=== PATIENT | female | born 1950 | race Caucasian/White ===

== ENCOUNTER 2019-11-07 16:10 | Emergency (ER) | payer MEDICARE, OTHER, SELFPAY ==
--- NOTE | ~2019-11-07 | XR_ITS ---
EXAMINATION: XR abdomen/kub 1V DATE: 11/07/2019 18:02 INDICATION: Left flank pain. TECHNIQUE: A supine view of the abdomen was obtained. COMPARISON: CT abdomen and pelvis 11/07/2019 FINDINGS: There are no dilated loops of bowel. There is contrast in the ureters and bladder. There is moderate left hydronephrosis. There is a 9 mm stone in proximal left ureter. IMPRESSION: 1. 9 mm stone in proximal left ureter with moderate left hydronephrosis. Reviewed, dictated and finalized at location A.
--- NOTE | ~2019-11-07 | CT_ITS ---
EXAMINATION: CT abdomen pelvis w con DATE: 11/07/2019 16:54 INDICATION: Left lower quadrant abdominal pain. TECHNIQUE: Computed tomography (CT) of the abdomen and pelvis was performed with 100 mL Omnipaque 350 intravenous contrast. Automated exposure control and iterative reconstruction technique were employe d. The dose-length product was 215.22 mGy-cm. COMPARISON: None. FINDINGS: The visualized portions of the lung bases demonstrate mild atelectasis. No pleural effusion . There is a large sliding hiatal hernia. The heart size is normal. No pericardial effusion. The live r, gallbladder, pancreas, and adrenal glands are normal. There are cysts in the kidneys measuring up to 9 mm in the right. There is a delayed left-sided contrast nephrogram. There is a 6 mm stone in lef t kidney. There is moderate left hydronephrosis. There is a 9 mm stone in proximal left ureter. There are no dilated loops of bowel. The appendix is normal. There are no pathologically enlarged lymph no neil. There is no free intraperitoneal fluid. There is lumbar levocurvature and severe spondylosis. IMPRESSION: 1. 9 mm stone in proximal left ureter with moderate left hydronephrosis. 2. Nonobstructing left kidney stone. 3. Large sliding hiatal hernia. Reviewed, dictated and finalized at location A.
[2019-11-07 16:22] VITALS: BP 133/87; PULSE 71; RESP 17; TEMP 36.8; O2SAT 99
[2019-11-07 16:25] LABS: Basophils Absolute Auto 0.2 K/mm3 (0.0-0.1); Basophils Percent Auto 1.4 % (0.2-1.2); Eosinophils Absolute Auto 0.2 K/mm3 (0-0.3); Eosinophils Percent Auto 2.1 % (0-4.4); Hematocrit 41.1 % (37.0-47.0); Hemoglobin 13.2 g/dL (12.0-15.0); Immature Granulocyte Absolute 0.04 K/mm3 (0.00-0.031); Immature Granulocyte Percent A 0.4 % (0-0.5); Lymphocytes Absolute Auto 2.01 K/mm3 (0.9-3.2); Lymphocytes Percent Auto 18.1 % (18.3-44.2); Mean Corpuscular HGB Conc 32.1 g/dl (32-36); Mean Corpuscular Hemoglobin 31.1 pg (26-34); Mean Corpuscular Volume 96.9 fl (80-100); Monocytes Absolute Auto 1.4 K/mm3 (0.1-0.6); Monocytes Percent Auto 12.9 % (2.6-8.5); Neutrophils Absolute Auto 7.2 K/mm3 (1.3-6.7); Neutrophils Percent Auto 65.1 % (45.5-73.1); Platelet Count Result 221 k/mm3 (150-375); Red Blood Count 4.24 M/mm3 (4.2-5.4); Red Cell Distribution Width 12.8 % (11.5-14.5); White Blood Count 11.1 K/mm3 (4.5-10.0)
--- NOTE | 2019-11-07 16:36 | ED.GENADULT ---
HPI - General Adult General Chief complaint: Abdominal Pain Stated complaint: LLG abd pain Time Seen by Provider: 11/07/19 16:20 Source: patient History of Present Illness HPI narrative: Patient is a 69 y/o female complaining of intermittent left lower abdominal pain for 4-6 weeks. She describes the pain as sharp and dull and rates it as 6/10. She states that pain radiates to left back sometimes. She states that holding pressure sometimes helps with the pain. She has no fever, vomiting, diarrhea or dysuria. Her pain is worse today, prompting her to go to urgent care, which referred her to come to ED for furthere evaluation. Related Data Home Medications Medication Instructions Recorded Confirmed hydroxychloroquine 200 mg tablet 200 mg PO DAILY 10/29/19 10/29/19 paroxetine HCl 10 mg tablet 10 mg PO DAILY 10/29/19 10/29/19 omeprazole 11/07/19 prednisone 11/07/19 11/07/19 Allergies Allergy/AdvReac Type Severity Reaction Status Date / Time erythromycin base Allergy Unknown Nausea Verified 11/07/19 16:11 sulfamethizole Allergy Unknown upset Verified 11/07/19 16:11 stomach adalimumab AdvReac Unknown HIVES Verified 11/07/19 16:11 Review of Systems Constitutional: Constitutional: Denies chills, Denies fever(s), Denies headache(s) and Denies weakness Eyes: Eyes: Denies blurry vision ENT: Denies headache(s) and Denies neck pain Cardiovascular: Cardiovascular: Denies chest pain and Denies dyspnea Respiratory: Respiratory: Denies cough and Denies dyspnea Gastrointestinal: Gastrointestinal: Reports abdominal pain, Denies diarrhea, Denies nausea and Denies vomiting Genitourinary: Genitourinary: Denies hematuria and Denies dysuria Musculoskeletal: Musculoskeletal: Denies back pain and Denies neck pain Neurologic: Denies headache(s) and Denies weakness [facility] Family History Family History Father Hypertension Family history of coronary artery disease, Onset Age: 82 Family history of malignant neoplasm of breast in first degree relative Patient's father is Social History Social History Smoking status: Former smoker Second hand tobacco smoke exposure: No Smoking end date: 02/18/08 Alcohol intake: current Gender identity (if verbalized by the patient): Female Exam Const: General: no acute distress and well developed Orientation/consciousness: oriented to person, oriented to place, oriented to time and patient oriented x3 HENMT: Head: normocephalic Ears: external ears normal General nose exam: Normal external nose present Eyes: General: appearance normal, both eyes and all related structures Conjunctivae: conjunctivae normal Neck: Neck: normal visual inspection and full ROM Chest: Chest palpation & inspection: normal inspection of the chest and no tenderness Resp: Effort & Inspection: normal respiratory effort Auscultation: clear to auscultation bilaterally Cardio: Rate: regular rate Rhythm: regular rhythm GI: GI Palp: No abdominal tenderness and Yes Soft to palpation Skin: General skin exam: normal color and turgor normal Neuro: General: oriented to person, oriented to place, oriented to time and patient oriented x3 Cognition (Neuro): normal cognition Extrem: General: normal to inspection, full ROM and no pedal edema Psych: Appearance: grossly normal Mental Status: mental status grossly normal Affect: normal affect Course Reevaluation(s) Reevaluation #1: Rechecked patient. She states that she feels better and wants to go home. She rates her pain as 2/10. Date: 11/07/19 Time: 17:30 Consultations Consultation #1: Discussed with Dr. Erickson (urology), who agrees with plan for discharge. He recommends Percocet for pain and they will follow. Date: 11/07/19 Time: 17:41 Vital Signs Vital signs: Vital Signs Temperature 36.8 C 11/07/19 16:22 Pulse Rate 71
[2019-11-07 16:37] LABS: Alanine Aminotransferase 18 U/L (4-35); Albumin Level 4.1 g/dL (3.5-5.1); Alkaline Phosphatase 72 U/L (38-126); Anion Gap 5 mmol/L (8-16); Aspartate Amino Transferase 36 U/L (14-36); Bilirubin,Total 0.4 mg/dL (0.2-1.3); Blood Urea Nitrogen 20 mg/dL (7-17); Calcium 9.2 mg/dL (8.4-10.2); Carbon Dioxide 29 mmol/L (22-30); Chloride 107 mmol/L (98-107); Estimated CRCL calculation 43 ml/min; Estimated Glomerular Filt Rate > 60; Glucose 109 mg/dL (65-105); Lipase 133 U/L (23-300); Potassium 3.3 mmol/L (3.4-5.0); Sodium 141 mmol/L (137-145)
[2019-11-07] MEDS: KETOROLAC 15 MG/ML VIAL (*BKC) IV PUSH (16:40)
[2019-11-07] MEDS: POTASSIUM CHLORIDE 20 MEQ TABLET PO (17:09)
[2019-11-07 17:14] VITALS: BP 153/75; PULSE 74; RESP 20; O2SAT 97
[2019-11-07 17:41] LABS: Add Urine Microscopic? YES; Appearance Urine Clear (Clear); Bilirubin Urine Negative (Negative); Blood Urine 3+ (Negative); Color Urine Yellow (Yellow); Glucose Urine UA Negative (Negative); Ketones Urine Negative (Negative); Leukocyte Esterase Ur 2+ LEU/UL (Negative); Mucus Urine Rare /lpf; Nitrate Urine Negative (Negative); Protein Urine Negative (Negative); RBC Urine 51-75 /hpf (0-2); Squamous Epithelial Cell Urine Rare /hpf (Few); Urobilinogen Urine Negative mg/dL (<2.0); WBC Urine 31-50 /hpf
[2019-11-07 17:43] LABS: Specific Grav Ur 1.043 (1.001-1.035)
[2019-11-07 17:46] VITALS: BP 128/66; PULSE 71; RESP 20; O2SAT 94
[2019-11-07 18:05] VITALS: BP 118/89; PULSE 72; RESP 20; O2SAT 95
== END 2019-11-07 18:05 | disposition home or self-care (01) ==
PROVIDERS: Emergency Provider Emergency Medicine; PCP Family Medicine
DX: N13.2 Hydronephrosis with renal and ureteral calculous obstruction (principal); N39.0 Urinary tract infection, site not specified; Z87.891 Personal history of nicotine dependence; K44.9 Diaphragmatic hernia without obstruction or gangrene
CPT/HCPCS: 36415; 74018; 74177; 80053; 81001; 83690; 85025; 87086; 96374; 99284; A9270; J1885; Q9967

== ENCOUNTER 2020-01-17 10:57 | Emergency (ER) | payer MEDICARE, OTHER, SELFPAY ==
--- NOTE | ~2020-01-17 | XR_ITS ---
EXAMINATION: [id number] DATE: 01/17/2020 11:26 INDICATION: Right chest pain. Fall. TECHNIQUE: A frontal view of the chest and 3 views of the right ribs were obtained. COMPARISON: CT abdomen and pelvis 11/07/2019 FINDINGS: There is a large hiatal hernia. There is mild atelectasis in the lower lung zones. No pleur al effusion or pneumothorax. The heart size is normal. IMPRESSION: 1. No rib fracture. 2. Large hiatal hernia. Reviewed, dictated and finalized at location A. NICS SYSTEMS ENGINEER
[2020-01-17 11:15] VITALS: BP 106/54; PULSE 71; RESP 18; TEMP 36.6; O2SAT 98
[2020-01-17 11:23] VITALS: BP 106/54; PULSE 71; RESP 18; TEMP 36.6; O2SAT 98
--- NOTE | 2020-01-17 11:56 | ED.FALL ---
HPI - Fall General Chief Complaint: Fall Stated Complaint: fell right side rib pain Time Seen by Provider: 01/17/20 11:26 Source: patient and RN notes reviewed Mode of arrival: ambulatory Limitations: no limitations History of Present Illness HPI Narrative: Patient presents today complaining of pain to her right anterior ribs. 6 days ago she fell onto some landscaping gravel at home when she tried to walk up a bit of an incline while carrying a puppy. She slipped on the gravel and fell. She has been experiencing pain ever since. Denies shortness of breath. Pain increases with deep breath and coughing. Currently rates pain 07/27. She has tried no [id number] interventions prior to arrival. Denies shortness of breath. MD complaint: fall and other (Right rib pain) Related Data Home Medications Medication Instructions Recorded Confirmed hydroxychloroquine 200 mg tablet 200 mg PO DAILY 10/29/19 01/17/20 paroxetine HCl 10 mg tablet 10 mg PO DAILY 10/29/19 01/17/20 omeprazole 20 mg PO DAILY 11/07/19 01/17/20 prednisone 2.5 mg PO DAILY 11/07/19 01/17/20 Allergies Allergy/AdvReac Type Severity Reaction Status Date / Time erythromycin base Allergy Intermediate Nausea Verified 01/17/20 11:21 sulfamethizole Allergy Intermediate upset Verified 01/17/20 11:21 stomach adalimumab AdvReac Intermediate HIVES Verified 01/17/20 11:21 Review of Systems Review of Systems: Narrative: CONSTITUTIONAL: Denies body aches, fever, chills, or sweats. EYES: Denies visual changes, redness, or discharge. ENT: Denies rhinorrhea, congestion, sore throat, or otalgia. CARDIOVASCULAR: Denies chest pain, palpitations, or edema. RESPIRATORY: Denies cough or dyspnea. GASTROINTESTINAL: Denies abdominal pain, nausea, vomiting, or diarrhea. GENITOURINARY: Denies dysuria or hematuria. SKIN: Denies rash, itching, or wounds. MUSCULOSKELETAL: Denies back pain, joint pain, or myalgia.+ Right rib pain NEUROLOGIC: Denies headache, numbness, tingling, or weakness. PSYCH: Denies depression or anxiety. [facility] Past Medical History Medical History (Updated 01/17/20 @ 12:10 by Tatyana Cabrera, RADIO MECHANIC APPRENTICE, ) GERD (gastroesophageal reflux disease) Rheumatoid arthritis Surgical History Surgical History (Updated 01/17/20 @ 12:10 by Tatyana Cabrera, [facility], ) H/O: hysterectomy Family History Family History Father Hypertension Family history of coronary artery disease, Onset Age: 82 Family history of malignant neoplasm of breast in first degree relative Patient's father is Social History Social History Smoking status: Former smoker Second hand tobacco smoke exposure: No Smoking end date: 02/18/08 Alcohol intake: current Gender identity (if verbalized by the patient): Female Comments At time of signature, I have reviewed and agree with nursing past medical, surgical, social and family history unless otherwise noted. Please see nursing chart for further information. There is no relevant family history pertinent to the presenting complaint Exam Narrative: Exam Narrative: GENERAL: Well-appearing, well-nourished, and in no acute distress. HEAD: Normocephalic, atraumatic. EYES: EOMI. No redness or drainage. Conjunctivae normal. ENT: Mucous membranes pink and moist. NECK: Normal AROM. CHEST: No respiratory distress. Clear to auscultation. Tenderness to the right anterior ribs, under the right breast. No edema, ecchymosis, or crepitus noted. HEART: Regular rate and rhythm. No murmur appreciated. Normal peripheral pulses. EXTREMITIES: Normal range of motion. No edema. SKIN: Warm, dry, no rash. Capillary refill normal. Normal skin turgor. NEURO: No focal deficits. Alert and oriented x3. Gait steady. PSYCH: Normal affect. No signs of depression or anxiety. Course Vital Signs Vital signs: Vital Signs Tempera
== END 2020-01-17 12:01 | disposition home or self-care (01) ==
PROVIDERS: Emergency Provider Nurse Practitioner; PCP Family Medicine
DX: S20.211A Contusion of right front wall of thorax, initial encounter (principal); W01.0XXA Fall on same level from slipping, tripping and stumbling without subsequent striking against object, initial encounter; Z87.891 Personal history of nicotine dependence; K21.9 Gastro-esophageal reflux disease without esophagitis; M06.9 Rheumatoid arthritis, unspecified
CPT/HCPCS: 71101; 99213; G0463

== ENCOUNTER 2020-03-20 10:58 | Outpatient (CLI) | payer MEDICARE, OTHER, SELFPAY ==
--- NOTE | ~2020-03-20 | MM_ITS ---
EXAMINATION: MM screening fatimah BI w gabrielle HISTORY: Screening mammogram, family history of breast cancer in her mother. TECHNIQUE: Craniocaudal and mediolateral oblique 3-D tomosynthesis images were obtained and synthetic 2-D images were generated. CAD analysis was submitted and interpreted. COMPARISON: 01/29/2019, 10/21/2017, 08/26/2016 BREAST PARENCHYMAL COMPOSITION: The breasts are heterogeneously dense, which may obscure small masses . FINDINGS: There is no evidence of suspicious mass, calcification, or architectural distortion to sugg est malignancy in either breast. There has been no suspicious interval change. IMPRESSION: 1. No mammographic evidence of malignancy. 2. Recommend routine screening mammography in one year. BI-RADS Category 1: Negative Reviewed, dictated and finalized at location A. GER SQL
== END 2020-03-20 10:59 | disposition home or self-care (01) ==
LOC: ANHIMG 11:02
PROVIDERS: PCP Family Medicine; Visit Provider Obstetrics & Gynecology
DX: Z12.31 Encounter for screening mammogram for malignant neoplasm of breast (principal)
CPT/HCPCS: 77063; 77067

== ENCOUNTER → 2020-10-21 01:22 | Outpatient (CLI) | payer MEDICARE, OTHER, SELFPAY ==
[2020-10-21 21:01] LABS: SARS-CoV-2 RNA PCR Negative
== END ==
PROVIDERS: PCP Family Medicine; Visit Provider Physician Assistant
DX: R05 Cough (principal); Z20.828 Contact with and (suspected) exposure to other viral communicable diseases
CPT/HCPCS: C9803; U0003; U0005

== ENCOUNTER 2021-06-25 10:11 | Outpatient (CLI) | payer MEDICARE, OTHER, SELFPAY ==
--- NOTE | ~2021-06-25 | MM_ITS ---
EXAMINATION: MM screening fatimah BI w gabrielle HISTORY: Screening TECHNIQUE: Craniocaudal and mediolateral oblique 3-D tomosynthesis images were obtained and synthetic 2-D images were generated. CAD analysis was submitted and interpreted. COMPARISON: Comparison to multiple prior studies sequentially, with oldest reviewed study dated 01/17. BREAST PARENCHYMAL COMPOSITION: The breasts are heterogenously dense, which may obscure small masses FINDINGS: There is no evidence of suspicious mass, calcification, or architectural distortion to sugg est malignancy in either breast. There has been no suspicious interval change. IMPRESSION: 1. No mammographic evidence of malignancy. 2. Recommend routine screening mammography in one year. BI-RADS Category 1: Negative Reviewed, dictated and finalized at location A.
== END 2021-06-25 10:12 | disposition home or self-care (01) ==
LOC: ANHIMG 10:14
PROVIDERS: PCP Family Medicine; Visit Provider Obstetrics & Gynecology
DX: Z12.31 Encounter for screening mammogram for malignant neoplasm of breast (principal)
CPT/HCPCS: 77063; 77067

== ENCOUNTER 2021-12-11 15:22 | Outpatient (CLI) | payer MEDICARE, OTHER, SELFPAY ==
--- NOTE | ~2021-12-11 | DEXA_ITS ---
Bone Density Report Name: ORTEGA ESTRADA Age: 71 Sex: Female Ethnicity: White Date of : 1950 Indication: osteopenia; height loss; rheumatoid arthritis; postmenopausal Referring Provider: PAWAN CHRISTENSEN Study: Bone densitometry was performed. Exam Date: December 11, 2021 Accession number: [id number] Bone Density: Region BMD T-score Z-score Classification AP Spine(L1-L4) 0.848 -1.8 0.3 Osteopenia Femoral Neck (Left) 0.550 -2.7 -0.9 Osteoporosis Total Hip (Left) 0.655 -2.4 -0.9 Osteopenia Femoral Neck (Right) 0.571 -2.5 -0.7 Osteoporosis Total Hip (Right) 0.683 -2.1 -0.6 Osteopenia Total Hip Mean 0.669 -2.3 -0.8 Osteopenia World Health Organization criteria for BMD impression classify patients as: Normal (T-score at or above -1.0), Osteopenia (T-score between -1.0 and -2.5), or Osteoporosis (T-score at or below -2.5). 10-year Fracture Risk: FRAX not reported because: Some T-score for Spine Total or Hip Total or Femoral Neck at or below -2.5 Previous Exams: Region Exam Age BMD T-score BMD Change BMD Change Date g/cm2 vs Baseline vs Previous AP Spine (L1-L4) 12/11/2021 71 0.848 -1.8 -0.048 (-5.4%) -0.048 (-5.4%) 04/28/2014 64 0.896 -1.4 Total Hip(Left) 12/11/2021 71 0.655 -2.4 -0.096 (-12.8% -0.044 (-6.3%) 11/26/2017 67 0.699 -2.0 -0.052 (-7.0%) -0.052 (-7.0%) 04/28/2014 64 0.751 -1.6 Total Hip(Right) 12/11/2021 71 0.683 -2.1 -0.081 (-10.6% -0.016 (-2.3%) 11/26/2017 67 0.699 -2.0 -0.065 (-8.5%) -0.065 (-8.5%) 04/28/2014 64 0.764 -1.5 *Denotes significance at 95% confidence level, LSC for AP Spine = 0.022 g/cm2, LSC for Total Hip = 0.027 g/cm2 Clinical Information Provided by Patient: Has rheumatoid arthritis Has used the following medications: Reclast (i.e. zoledronate), Vitamin D, Calcium Patient maximum height was 60.5 Menopause Age: 51 Drinks caffeinated beverages Onset of menses at age 14 Number of children 2 Impression: The patient has osteoporosis, based on the Left Femoral Neck T-score. The BMD for the AP Spine (L1-L4) decreased, changing by -5.4% since the last DXA exam. The BMD for the Total Hip(Left) decreased, changing by -6.3% since the last DXA exam. Discussion: INCREASED RISK OF FRACTURE. BONE DENSITY IS UNDESIRABLY LOW AT ONE OR MORE SKELETAL SITES, CONSISTENT WITH POSTMENOPAUSAL OSTEOPOROSIS. This patient's lowest T-score meets the World Health Organization's (WHO) criter
== END 2021-12-11 15:23 | disposition home or self-care (01) ==
PROVIDERS: PCP Family Medicine; Visit Provider Physician Assistant
DX: Z78.0 Asymptomatic menopausal state (principal); M81.8 Other osteoporosis without current pathological fracture; M85.88 Other specified disorders of bone density and structure, other site; M85.852 Other specified disorders of bone density and structure, left thigh; M85.851 Other specified disorders of bone density and structure, right thigh
CPT/HCPCS: 77080

== ENCOUNTER 2022-10-02 13:34 | Emergency (ER) | payer MEDICARE, OTHER, SELFPAY ==
--- NOTE | ~2022-10-02 | XR_ITS ---
EXAMINATION: [id number] INDICATION: Right rib pain TECHNIQUE: A frontal view of the chest and 3 views of the right ribs were obtained. COMPARISON: 01/17/2020 FINDINGS: The lungs are free of acute opacities. No pleural effusion or pneumothorax. The heart size is normal. There are changes of hiatal hernia repair. No displaced rib fracture is identified. IMPRESSION: 1. No acute cardiopulmonary abnormality or evidence of displaced rib fracture. Reviewed, dictated and finalized at location B.
[2022-10-02 13:44] VITALS: BP 117/55; PULSE 78; RESP 16; TEMP 36.9; O2SAT 98
--- NOTE | 2022-10-02 14:01 | ED.GENADULT ---
HPI - General Adult General Chief complaint: Unspecified Stated complaint: Flank Pain Time Seen by Provider: 10/02/22 14:01 Source: patient Mode of arrival: ambulatory Limitations: no limitations History of Present Illness HPI narrative: 72-year-old female presenting for complaint of right rib pain for 2 days. She states her attempted to give her hug with his arms around her ribs, and when he tried to lift her she felt pain to the site. She has had intermittent pain since then. Rates pain 5/10, worse with certain movements. She denies shortness of breath, wheezing, palpitations or dizziness. She has not needed to take anything for pain. Related Data Home Medications Medication Instructions Recorded Confirmed hydroxychloroquine 200 mg tablet 200 mg PO DAILY 10/29/19 10/02/22 (Plaquenil) Allergies Allergy/AdvReac Type Severity Reaction Status Date / Time erythromycin base Allergy Intermediate Nausea Verified 10/02/22 13:49 sulfamethizole Allergy Intermediate upset Verified 10/02/22 13:49 stomach adalimumab AdvReac Intermediate HIVES Verified 10/02/22 13:49 Review of Systems Review of Systems: CONSTITUTIONAL: Denies body aches, fever, chills, or sweats. EYES: Denies visual changes, redness, or discharge. ENT: Denies rhinorrhea, congestion, sore throat, or otalgia. CARDIOVASCULAR: Denies chest pain, palpitations, or edema. RESPIRATORY: Denies cough or dyspnea. GASTROINTESTINAL: Denies abdominal pain, nausea, vomiting, or diarrhea. GENITOURINARY: Denies dysuria or hematuria. SKIN: Denies rash, itching, or wounds. MUSCULOSKELETAL: Reports right rib pain. Denies back pain, joint pain, or myalgia. NEUROLOGIC: Denies headache, numbness, tingling, or weakness. PSYCH: Denies depression or anxiety. All systems reviewed & are unremarkable except as noted in HPI and below PMFSH Past Medical History Medical History GERD (gastroesophageal reflux disease) Rheumatoid arthritis Surgical History Surgical History H/O: hysterectomy History of repair of hiatal hernia (~03/08/21) Family History Family History Father Hypertension Family history of coronary artery disease, Onset Age: 82 Family history of malignant neoplasm of breast in first degree relative Patient's father is Social History Social History Smoking status: Former smoker Second hand tobacco smoke exposure: No Smoking end date: 02/18/08 Alcohol intake: current Substance use: never Substance use type: does not use Lack of Transportation: No Lack of Food: Never True Current Housing: I Have Housing Concerned About Future Housing: No Difficulty Paying Gas/Electric Bills: No Difficulty Paying for Meds: No Currently Unemployed: No Education: High School Diploma/GED Difficulty w/ Childcare or Family Care: No Gender identity (if verbalized by the patient): Female Comments At time of signature, I have reviewed and agree with nursing past medical, surgical, social and family history unless otherwise noted. Please see nursing chart for further information. There is no relevant family history pertinent to the presenting complaint Exam Narrative: GENERAL: Well-appearing, and in no acute distress. HEAD: Normocephalic, atraumatic. EYES: EOMI. Conjunctivae normal. ENT: Mucous membranes pink and moist. NECK: Normal AROM. Supple. No lymphadenopathy. CHEST: No respiratory distress. Clear to auscultation. HEART: Regular rate and rhythm. No murmur appreciated. Normal peripheral pulses. ABDOMEN: Soft, nontender, nondistended, normal active bowel sounds. MUSCULOSKELETAL: Right anterior rib tenderness to 5th rib area, no bruising or rash EXTREMITIES: Normal range of motio
== END 2022-10-02 14:20 | disposition home or self-care (01) ==
PROVIDERS: Emergency Provider Nurse Practitioner Family; PCP Family Medicine
DX: S20.211A Contusion of right front wall of thorax, initial encounter (principal); X58.XXXA Exposure to other specified factors, initial encounter; K21.9 Gastro-esophageal reflux disease without esophagitis; M06.9 Rheumatoid arthritis, unspecified; Z87.891 Personal history of nicotine dependence
CPT/HCPCS: 71101; 99213; G0463

== ENCOUNTER 2023-01-30 10:11 | Outpatient (CLI) | payer MEDICARE, OTHER, SELFPAY ==
--- NOTE | ~2023-01-30 | MM_ITS ---
EXAMINATION: MM screening fatimah BI w gabrielle HISTORY: Screening TECHNIQUE: Craniocaudal and mediolateral oblique 3-D tomosynthesis images were obtained and synthetic 2-D images were generated. CAD analysis was submitted and interpreted. COMPARISON: Comparison to multiple prior studies sequentially, with oldest reviewed study dated 01/17. BREAST PARENCHYMAL COMPOSITION: The breasts are heterogeneously dense, which may obscure small masses FINDINGS: There is no evidence of suspicious mass, calcification, or architectural distortion to sugg est malignancy in either breast. There has been no suspicious interval change. IMPRESSION: 1. No mammographic evidence of malignancy. 2. Recommend routine screening mammography in one year. BI-RADS Category 1: Negative Reviewed, dictated and finalized at location A. 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
== END 2023-01-30 10:12 | disposition home or self-care (01) ==
PROVIDERS: PCP Family Medicine; Visit Provider Obstetrics & Gynecology
DX: Z12.31 Encounter for screening mammogram for malignant neoplasm of breast (principal)
CPT/HCPCS: 77063; 77067

== ENCOUNTER 2024-10-12 14:57 | Outpatient (CLI) | payer MEDICARE, OTHER, SELFPAY ==
--- OUTSIDE RECORDS SUMMARY | 2009-04-14 08:15 | XMS_ITS | Continuity of Care Document ---
Author Organization [facility] Address [address] [place] [address] utive [facility] 150 [place] [address] Phone Care Team Providers Care Printer Floor Covering Assistant Name Role Phone Sean Chapa Unavailable Unavailable Procedures Procedure Date Visual Field Examination(s) Office/outpatient Visit, Est Visual Field Examination(s) Office/outpatient Visit, Est Office/outpatient Visit, Est Visual Field Examination(s) Eye Exam, New Patient Advance Directives Directive Yes / No Effective Date File Name No Information Encounters Encounter Description Practice Location Reason(s) For Visit Diagnoses Date Provider Providers Copied on Encounter [facility], [address] [place], [place] [address]te [address], [place], [place], [address], tel:[phone] [facility] No Information 6-201 0 Eduard Estrada. [facility] [address], [address], [place]. tel:[phone] Referring Provider: Sean oleary [facility] [address] [address], [place], [address]. tel:[phone] Office/outpat ient Visit, Est [facility], [address] [place], [place] [address]te [address], [place], [place], [address], tel:[phone] [facility] No Information 8-200 9 Eduard Juanhil. [facility] [address], [facility], [place]. tel:[phone] [facility], [address], [place], [place], [address], [place] tel:[phone] [facility] No Information 3-200 9 Eduard Sellersl. 2421 [facility] 102, [place], [facility], [place]. tel:[phone] Referring Provider: Sean oleary, 2421 [facility] 102, [place], [facility]. tel:[phone] Office/outpat ient Visit, [facility], [address], [place], [place], [address], [place] tel:[phone] [facility] No Information 9-200 8 Krishnasamy Esan. [facility], [place], [place], [facility], [place]. tel:[phone] Office/outpat ient Visit, [facility], [address], [place], [place], [address], [place] tel:[phone] [facility] No Information 8-200 8 Kingsley Goldberg. [address] [facility] [place], [address], [place]. tel:[phone] [facility], [address], [place], [place], [address], [place] tel:[phone] [facility] No Information 1-200 7 Kingsley Goldberg. [address] [facility], [facility] [place], [address], [place]. tel:[phone] Referring Provider: Yusuf Nieves, [address] [facility], [place] [place], [address] . tel:[phone] [facility], [address], [place], [place], [address], [place] tel:[phone] [facility] No Information 7 Kingsley Goldberg. [address] [facility], [address], [place], [place], [address], [place]. tel:[phone] Referring Provider: David Head, [address] [place] [address], [address]. tel:[phone] Family History Family Member Type Diagnosis Age [...]
--- OUTSIDE RECORDS SUMMARY | 2024-10-11 08:20 | XMS_ITS | Encounter Summary ---
Author Organization [facility] Address [address] [place] [address] Phone Care Team Providers Care Television And Radio Repairer Name Role Phone Yumiko Shaffer MD Unavailable [phone] Noris Limon NP Primary Care Provider [phone] Reason for Referral * Diagnostic Imaging (Routine) - Closed Specialty Diagnoses / Procedures Referred By Contac t Referred To Contact Diagnoses Seropositive rheumatoid arthritis of multiple sites (HCC) Procedures XR Foot Left 3 or More Views Yumiko Shaffer MD [address] [place] [address] Phone: tel: fax: [address] [phone] Referral ID Status Reason Start Date Expiration Date Visits Re quested Visits Authorized [id number] Closed 10/11/2024 11/10/2025 1 1 * Diagnostic Imaging (Routine) - Closed Specialty Diagnoses / Procedures Referred By Contac t Referred To Contact Diagnoses Seropositive rheumatoid arthritis of multiple sites (HCC) Procedures XR Hand Left 3 or More Views Yumiko Shaffer MD [address] [place] [address] Phone: tel: fax: [address] [place] [phone] Referral ID Status Reason Start Date Expiration Date Visits Re quested Visits Authorized [id number] Closed 10/11/2024 11/10/2025 1 1 * Diagnostic Imaging (Routine) - Closed Specialty Diagnoses / Procedures Referred By Contac t Referred To Contact Diagnoses Seropositive rheumatoid arthritis of multiple sites (HCC) Procedures XR Hand Right 3 or More Views Yumiko Shaffer MD [address] [place] [address] Phone: tel: fax: [address] [phone] Referral ID Status Reason Start Date Expiration Date Visits Re quested Visits Authorized [id number] Closed 10/11/2024 11/10/2025 1 1 Encounter Details Date Type Department Care Team (Latest Contact Info) Description 10/11/2024 8:20 AM CDT Office Visit [facility] 5th [place] [address] [place] [id number] Yumiko Shaffer MD [address] [place] [address] Seropositive rheumatoid arthritis of multiple sites (HCC) (Primary Dx); Primary osteoarthritis involving multiple joints; High risk medication use; Other osteoporosis without current pathological fracture Social History Tobacco Use Types Packs/Day Years Used Date Smoking Tobacco: Former Cigarettes Q uit: 11/23/2012 Smokeless Tobacco: Never Tobacco Cessation:Counseling Given: Not Answered Comments:Smoking History Packs/day: 0.75 Packs Alcohol Use Standard Drinks/Week Comments Yes 0 (1 standard drink = 0.6 oz pur e alcohol) rarely AUDIT-C Answer Date Recorded Q1: How often do you have a drink containing alc ohol? 2-4 times a month 11/19/2021 Q2: How many drinks containi ng alcohol do you have on a typical day when you are drinking? 1 or 2 11/19/2021 Q3: How often do you have si x or more drinks on one occasion? Never 11/19/2021 PHQ-2 Answer Date Recorded PHQ-2 Score 0 10/09/2018 Hunger Vital Sign Answer Date Recorded Within the past 12 months, y ou worried that your food would run out before you got the money to buy more. Never true 06/08/19 25 Within the past 12 months, t he food you bought just didn't last and you didn't have money to get more. Never true 06/07/2024 Personal Safety Answer Date Recorded Have you ever been in or are you currently in a harmful physical or emotional relationship or is someone making you feel afraid or unsafe? 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[employer] Gender Identity Not on file Sexual Orientation Not on file documented as of this encounter Last Filed Vital Signs Vital Sign Reading Time Taken Comments Blood Pressure 145/81 10/11/2024 8:25 AM CDT Pulse 78 10/11/2024 8:25 AM CDT Temperature 36.6 C (97.8 F) 10/11/2024 8:25 AM CDT Respiratory Rate - - Oxygen Saturation - - Inhaled Oxygen Concentration - - Weight 51.7 kg (114 lb) 10/11/2024 8:25 AM CDT Height 152.4 cm (5') 10/11/2024 8:25 AM CDT Body Mass Index 22.26 10/11/2024 8:25 AM CDT documented in this encounter Patient Instructions * Patient Instructions* Yumiko Shaffer MD - 10/11/2024 8:20 AM CDT 1) Xrays on the 6th floor 2) TB test on the 3rd floor 3) We'll start enbrel or actemra (tocilizumab) - info below Patient Information on TNF Inhibitors from the [employer] TNF inhibitors are a type of drug used worldwide to treat inflammatory conditions such as rheumatoid arthritis (RA), psoriatic arthritis, juvenile arthritis, inflammatory bowel disease (Crohn???s andulcerative colitis), ankylosing spondylitis, and psoriasis. They reduce inflammation and stop disease progression by targeting an inflammation-causing substance called Tumor Necrosis Factor (TNF). In healthy individuals, excess TNF in the blood is blocked naturally, but in those who have rheumatic conditions, higher levels of TNF in the blood lead to more inflammation and persistent symptoms. They can alter a disease???s effect on the body by controlling inflammation in the joints, gastrointestinal tract, and skin. There are six different TNF inhibitors that have been approved by the U.S. Food and Drug Administration for the treatment of rheumatic diseases. To decrease side effects and costs, most patients withmild or moderate disease may be treated with methotrexate before adding or switching to a TNF inhibitor. These agents can be used by themselves or in combination with other medications such as prednisone, methotrexate, hydroxychloroquine, leflunomide, or sulfasalazine. How To Take It The starting doses for RA are shown in Table 1. Similar doses are used for other rheumatic conditions. TNF inhibitors may be given by injection under the skin or by infusion into the vein. There are pamphlets and videos that can teach you how to give yourself an injection under the skin. Physicians, nurses, and pharmacists can also teach you how to give the injection. The medicine can be injected into the thigh or abdomen. The site of injection should be rotated so the same site is not used multiple times. Infliximab and golimumab infusions are administered at a doctor???s office or an infusion center. These treatments take up to four hours. The time that it takes for the medication to have an effect may vary by patient. Most patients havereported a change in their symptoms after two or three doses, but it usually takes three months to see the full benefit. Side Effects The most common side effect seen with the injectable drugs are skin reactions, commonly referred toas ???injection site reactions.?? The patients usually complain of a localized rash with burning or itching. These reactions can last up to a week. Infliximab has been associated with a severe allergic reaction with swelling of the lips, difficulty breathing and low blood pressure. Your doctor will usually order a pre-medication to decrease the chances of an infusion reaction. The most significant side effect is an increased risk for all types of infections, including tuberculosis (TB) and fungal infections. Some of these infections may be severe. Patients should be testedfor TB before starting therapy, because a hepatitis B infection can worsen during treatment. The usual way of testing is with a skin test, but a blood test is also available. Long-term use of TNF inhibitors may increase the risk of cancers such as lymphoma and skin cancer. There are rare neurologic complications as well.. People who have a history of multiple sclerosis should not use them. People with significant heart failure should not use a TNF inhibitor, because their heart disease could worsen. Tell Your Doctor TNF inhibitors should be stopped if the patient has high fever or is being treated with antibioticsfor an infection. Once the medication is stopped, it should not be restarted until the infection goes away. Patients should talk to their doctor before getting any vaccinations while using an anti-TNF drug. Some vaccinations are safe, but live vaccines should be avoided. These medications are expensive (more than $10,000 per year), but they are covered by most health care insurance plans. Copay amounts vary widely. Ask your doctor about prescription assistance plans that can help you to get the medication at a lower ruff or free of charge. Refer to the package insert for more information. If you are prescribed Humira, please register for their Nurse Ambassador Program. This program provides 09/09 injection support and is available to answer questions about Humira. [email or web address] Patient Information on Tocilizumab from the [employer] Tocilizumab (Actemra ??) is a biologic medication currently approved to treat adults with moderately to severely active rheumatoid arthritis (RA), adults with giant cell arteritis (GCA), and people ages two and above with Polyarticular Juvenile Idiopathic Arthritis (PJIA) or Systemic Juvenile Idiopathic Arthritis (SJIA). Biologic medications are proteins designed by humans that affect the immune system. Tocilizumab blocks the inflammatory protein IL-6. This improves joint pain and swelling fromarthritis and other symptoms caused by inflammation. How to Take It For adults with RA or GCA, tocilizumab can be given as either a monthly intravenous infusion or as a subcutaneous injection every one - two weeks. For people with PJIA or SJIA, tocilizumab is given as a monthly intravenous infusion. When used as a subcutaneous injection, the medicine can be injected into the thigh or abdomen. The site of injection should be rotated so the same site is not used multiple times. Some patients will start to see improvement within a few weeks, but it may take several months to take full effect. Tocilizumab may be taken alone or with methotrexate or other non-biologic drugs. Tocilizumab should not be given in combination with another biologic drug. Blood tests will be used to monitor for increases in cholesterol or liver enzymes and for reductions in blood cellcounts while taking tocilizumab. Side Effects Tocilizumab can lower the ability of your immune system to fight infections. If you develop symptoms of an infection while using this medication, you should stop it and contact your doctor. All patients should be tested for tuberculosis before starting on tocilizumab, although these types of infections have not been frequently seen. Allergic reactions to intravenous tocilizumab infusions can occur, which can include symptoms such as fever and chills, but these are rare. Tocilizumab has been associated with increased cholesterol levels in some patients, and should be periodically monitored. Ifyour cholesterol level becomes too high, it is possible you may need to start taking a medication to lower it. A rare complication seen with tocilizumab use in clinical trials was bowel perforation, or a hole in the bowel wall. If you have a history or diverticulitis or develop abdominal pain or bloody bowel movements while taking tocilizumab, you should notify your doctor immediately. Tell Your Doctor You should notify your doctor if you develop symptoms of an infection, such as a fever or cough, orif you think you are having any side effects, especially abdominal pain, bloody bowel movements, orallergic reactions. Notify your doctor if you become , are planning , or if you are . Be sure to talk with your doctor if you are planning to have surgery or if you plan to get any live vaccinations; these include the shingles vaccine, the nasal spray flu vaccine, and others such as the measles, mumps, rubella, and yellow fever vaccines. [email or web address]-Act emra documented in this encounter Ordered Prescriptions Prescription Sig Dispense Quantity Refills Last Filled Start Date End Date etanercept (ENBREL) 50 mg/mL (1 mL) pen injectorIndications :Seropositive rheumatoid arthritis of multiple sites (HCC) Inject 1 mL (50 mg total) under the skin once a week 12 mL 1 10/11/2024 documented in this encounter Progress Notes * Yumiko Shaffer MD - 10/11/2024 8:20 AM CDT [facility] Division of Rheumatology SUBJECTIVE: Chief Complaint This is different Brief History of Present Illness: 74 y.o. female with PMHx significant for erosive, seropositive (RF, CCP) RAA, hiatal hernia c/b torsion requiring bowel resection, s/p hysterectomy, kidney stones is evaluated in the Rheumatology Clinic for rheumatoid arthritis. Disease History Diagnosed around age 52yo when developed feet pain after a hepatitis vaccine. Initially treated with injections in the feet, but then progressed to neck pain and then b/l hands, knees, shoulders pain. PCP treated with NSAIDs. Self referred to Dr. Guerrero. Treated initially with prednisone and HCQ. Did well with that initially. Switched to Dr. Garcia at [facility]. Retired during . 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 Hagan recently left the practice. Treatment History Prednisone MTX - caused elevated LFTs HCQ Humira - caused hives Orencia (? - current) Remicade ( - 2017) - transitioned to orencia because of medicare Orencia (subq in 2017, then IV 2017 - 05/2024) Rinvoq (05/2024 - 09/2024) - d/c'ed for fevers Osteoporosis: Alendronate - c/f osteonecrosis of the jaw -- and GI symptoms Reclast 05/2020, 08/2021, 12/2022, 05/2024 Interval History Pt last evaluated in clinic 4 months ago. RA active. We stopped orencia, started rinvoq, and continued HCQ. Started rinvoq maybe 6 weeks ago. 3-4 weeks ago, was at [facility] [employer] and got a sore throat while she was there. PCP had prescribed augmentin for the sore throat via phone visit. Got thrush fromthe antibiotics and was prescribed nystatin, which caused abdominal pain. PCP recommended doubling PPI, which helped. It felt like I had a hole in my stomach. About a week after the sore throat, started having fevers. Accompanied by flu-like feeling, night sweats. Had to change Pjs because they were soaked. Fevers up to 101.8F. Associated with chills. No cough, no diarrhea, no rash, no joint swelling, no dysuria. Went to [facility], where diagnosed with UTI (though culture only showed contamination). Flu, COVID, RSV negative. Prescribed cefpodoxime, which caused nausea, and PCP swapped to macrobid. Daughter brought her to a drip bar, where received IVF and a shot of B12. About 5 days later, starting to improve. ESR, CRP were not checked in this process. RA is doing well. Rinvoq was helping the joints. No stiffness, no pain. Did not use all of the prednisone prescribed during recent RA flare. Thinks the Rinvoq caused the fevers and does not want to resume it. Interested in another medicine. ROS: All systems negative PMHx: Past Medical History: Diagnosis Date Delayed emergence from general anesthesia mild - no prolonged stay or ICU admission GERD (gastroesophageal reflux disease) PONV (postoperative nausea and vomiting) PSHx: Past Surgical History: Procedure Laterality Date BREAST BIOPSY DENTAL SURGERY 08/2017 tooth pulled HERNIA REPAIR 02/2021 HYSTERECTOMY OTHER SURGICAL HISTORY 10/2019 kidney stone stent placement TONSILLECTOMY Social Hx: reports that she quit smoking about 11 years ago. Her smoking use included cigarettes. She has never used smokeless tobacco. She reports current drug use. Drugs: Marijuana and Alcohol. Patient reports consuming alcoholic drinks , with a daily consumption of drinks. Patient denies daily consumption of 6 or more alcoholic drinks at one occasion. FHx: Family History Problem Relation Age of Onset Anesthesia problems Mother PONV Rheum arthritis Maternal Grandfather Anesthesia problems Daughter PONV MEDICATIONS: Current Outpatient Medications Medication Sig Dispense Refill abatacept/maltose (ORENCIA, WITH MALTOSE, IV) IV every month calcium (CALCIO PATRICK) 500 mg tablet take 1 tablet twice a day 0 hydroxychloroquine (PLAQUENIL) 200 mg tablet TAKE 1 TABLET BY MOUTH TWICE DAILY 180 tablet 0 LORazepam (ATIVAN) 0.5 mg tablet Take 1 tablet (0.5 mg total) by mouth every 8 (eight) hours as needed for anxiety 30 tablet 0 multivitamin (MULTI-DAY) tablet tablet take 1 tablet by oral route every day with food 0 oxybutynin (DITROPAN) 5 mg tablet Take 1 tablet (5 mg total) by mouth 2 (two) times a day pantoprazole DR (PROTONIX) 40 mg EC tablet Take 1 tablet (40 mg total) by mouth every morning PARoxetine (PAXIL) 10 mg tablet Take 1 tablet (10 mg total) by mouth daily 30 tablet 1 No current facility-administered medications for this visit. ALLERGIES: Allergies Allergen Reactions Adalimumab Urticaria Reaction: urticaria, Erythromycin Stomach upset Reaction: Stomach Pain, OBJECTIVE: Physical Examination: Vitals: BP 145/81 (BP Location: Right arm, Patient Position: Sitting) Pulse 78 Temp 36.6 ??C (97.8 ??F) (Oral) Ht 152.4 cm (5') Wt 51.7 kg (114 lb) BMI 22.26 kg/m?? General: Looks well, comfortable HEENT: no scleral icterus LAD: No cervical or axillary LAD CVS: RRR, nl S1/S2, no R/M/G, Resp: CTAB. No rales or wheezing. Ext: No edema. Neuro: No facial droop. Gait Normal. Skin: No rash. No ulcers. Musculoskeletal: squaring b/l 1st CMCs, (+) heberden's nodes without inflammation, (+) swelling L 2nd and 3rd MCPs, R 2nd MCP Investigations: Labs: Lab Results Component Value Date WBC 5.99 10/01/2024 HGB 11.4 (L) 10/01/2024 HCT 35.0 (L) 10/01/2024 MCV 94.3 10/01/2024 LABPLAT 294 10/01/2024 Lab Results Component Value Date AST 32 06/07/2024 ALT 14 06/07/2024 CREATININE 0.90 10/01/2024 Lab Results Component Value Date SEDRATE 53 (H) 06/07/2024 Lab Results Component Value Date CRP 11.3 (H) 06/07/2024 Imaging: DXA (11/2021) OSH L Femoral neck T score -2.7, BMD 0.550 L Total hip T score -2.4, BMD 0.655 L spine T score -1.8, BMD 0.848 Xray Hands and Feet (11/2021) 1. Small nonspecific erosion of the left 5th metatarsal head. 2. Multifocal osteoarthritis of the bilateral hands and feet. ASSESSMENT/PLAN: 74 y.o. female with PMHx significant for erosive, seropositive (RF, CCP) RA, hiatal hernia c/b torsion requiring bowel resection, s/p hysterectomy, kidney stones is evaluated in the Rheumatology Clinic for rheumatoid arthritis. Problem List Items Addressed This Visit Endocrine and Metabolic Other osteoporosis without current pathological fracture Other Visit Diagnoses Seropositive rheumatoid arthritis of multiple sites (HCC) - Primary Relevant Medications etanercept (ENBREL) 50 mg/mL (1 mL) pen injector Other Relevant Orders XR Hand Right 3 or More Views XR Hand Left 3 or More Views XR Foot Right 3 or More Views XR Foot Left 3 or More Views Primary osteoarthritis involving multiple joints High risk medication use Relevant Orders T-SPOT.TB Blood #) Rheumatoid Arthritis: Erosive, seropositive (RF, CCP). Active disease on today's evaluation Treatment History Prednisone MTX - caused elevated LFTs HCQ Humira - caused hives Orencia (? - Remicade ( - 2017) - transitioned to orencia because of medicare Orencia (subq in 2017, then IV 2017 - 05/2024) Rinvoq (05/2024 - 09/2024) - d/c'ed for fevers - Stop Rinvoq because had an adverse event (fevers) - See if we can get Enbrel or Tocilizumab approved by insurance - Reviewed risks/benefits of enbrel and tocilizumab; provided ACR handout - advised pt to always stop immunosuppression whenever having a fever - Update hand/feet xrays #) Osteoporosis: Based on DXA from 2017 and persistent on 2021 DXA Treatment History Alendronate - c/f osteonecrosis of the jaw -- and GI symptoms Reclast 05/2020, 08/2021, 12/2022, 05/2024 - Check CTX at next appointment - Vitamin D wnl 05/2024 - Getting D[facility] #) High Risk Med Use/HCQ Toxicity Monitoring: Normal Eye exam 07/2021 #) Immunosuppression: - Check Blood TB since submitting prior auth for enbrel - Will notify patient of results - RTC 4-5 months, sooner prn I spent 30 minutes providing care: Reviewing the chart, interviewing/examining/counseling the patient, coordinating care when specified, and documenting the encounter. Yumiko Shaffer MD [facility], Division of Rheumatology ADDENDUM Xrays hands/feet (10/11/24) 1. Unchanged inflammatory arthritis of the bilateral forefeet with no new erosion or joint space narrowing in the hands and feet. 2. Moderate to severe osteoarthritis of the hands, worst at the finger DIP joints A/P Even though rheumatoid arthritis is active and we're working to find the best medicine to treat theRA, the good news is that it has not caused changes in the bones of the joints. We'll continue withour plan to transition to enbrel or tocilizumab. Rogelio Fournier to send result letter to patient. Dr. Yumiko Shaffer MD October 11, 2024 10:05 AM documented in this encounter Miscellaneous Notes * Addendum Note - Yumiko Shaffer MD - 10/11/2024 8:20 AM CDTAddended by: YUMIKO SHAFFER on: 10/11/2024 11:02 AM Modules accepted: Level of Service documented in this encounter Plan of Treatment Pending Results Name Type Priority Associated Diagnoses Date /Time T-SPOT.TB Blood Microbiology Routine High risk medication use 10/11/2024 9:10 AM CDT Scheduled Orders Name Type Priority Associated Diagnoses Orde r Schedule T-SPOT.TB Blood Microbiology Routine High risk medication use Expected: 10/11/2024, Expires: 10/11/2025 documented as of this encounter Procedures Procedure Name Priority Date/Time Associated Diagnosis Comments XR FOOT RIGHT 3 OR MORE VIEWS Schedule Routine, Read Routine (OP Routine) 10/11/2024 9:41 AM CDT Seropositive rheumatoid arthritis of multiple sites (HCC) XR FOOT LEFT 3 OR MORE VIEWS Schedule Routine, Read Routine (OP Routine) 10/11/2024 9:41 AM CDT Seropositive rheumatoid arthritis of multiple sites (HCC) XR HAND RIGHT 3 OR MORE VIEWS Schedule Routine, Read Routine (OP Routine) 10/11/2024 9:41 AM CDT Seropositive rheumatoid arthritis of multiple sites (HCC) XR HAND LEFT 3 OR MORE VIEWS Schedule Routine, Read Routine (OP Routine) 10/11/2024 9:41 AM CDT Seropositive rheumatoid arthritis of multiple sites (HCC) documented in this encounter Results * XR Foot Left 3 or More Views (10/11/2024 9:41 AM CDT) Anatomical Region Laterality Modality Lower Extremities, Foot Left Computed Radiography 10/11/2024 9:54 AM CDT Impressions 10/11/2024 9:54 AM CDT 1. Unchanged inflammatory arthritis of the bilateral forefeet with no new erosion or joint space narrowing in the hands and feet. 2. Moderate to severe osteoarthritis of the hands, worst at the finger DIP joints. Electronically signed by: Bert Johnson M.D. Narrative 10/11/2024 9:54 AM CDT EXAMINATION: XR HAND RIGHT 3 OR MORE VIEWS, XR HAND LEFT 3 OR MORE VIEWS, XR FOOT RIGHT 3 OR MORE VIEWS, XR FOOT LEFT 3 OR MORE VIEWS HISTORY: Seropositive rheumatoid arthritis FINDINGS: 3 view examinations of both hands and both feet are compared with studies from 11/19/2021. Hands: There is severe bilateral osteoarthritis at the finger distal interphalangeal joints, worst at the index and small fingers, where there are central erosions and periarticular soft tissue swelling. There is moderate osteoarthritis at the thumb basal joints. There is no new erosion or joint space narrowing. Feet: There is bilateral hallux valgus and metatarsus primus varus with bunions. There are unchanged erosions at the bilateral 1st, right 3rd, and left 5th metatarsophalangeal joints. There is moderate secondary osteoarthritis at the right 3rd metatarsophalangeal joint with dorsal subluxation. There is an old, healed fracture of the left 3rd metatarsal shaft. There is no new fracture. There is no new erosion or joint space narrowing. Small bilateral heel spurs are present. Procedure Note Bert Johnson MD - 10/11/2024 EXAMINATION: XR HAND RIGHT 3 OR MORE VIEWS, XR HAND LEFT 3 OR MORE VIEWS, XR FOOT RIGHT 3 OR MORE VIEWS, XR FOOT LEFT 3 OR MORE VIEWS HISTORY: Seropositive rheumatoid arthritis FINDINGS: 3 view examinations of both hands and both feet are compared with studies from 11/19/2021. Hands: There is severe bilateral osteoarthritis at the finger distal interphalangeal joints, worst at the index and small fingers, where there are central erosions and periarticular soft tissue swelling. There is moderate osteoarthritis at the thumb basal joints. There is no new erosion or joint space narrowing. Feet: There is bilateral hallux valgus and metatarsus primus varus with bunions. There are unchanged erosions at the bilateral 1st, right 3rd, and left 5th metatarsophalangeal joints. There is moderate secondary osteoarthritis at the right 3rd metatarsophalangeal joint with dorsal subluxation. There is an old, healed fracture of the left 3rd metatarsal shaft. There is no new fracture. There is no new erosion or joint space narrowing. Small bilateral heel spurs are present. IMPRESSION: 1. Unchanged inflammatory arthritis of the bilateral forefeet with no new erosion or joint space narrowing in the hands and feet. 2. Moderate to severe osteoarthritis of the hands, worst at the finger DIP joints. Electronically signed by: Bert Johnson M.D. us Yumiko Shaffer MD IMG XR PROCEDURES Final Resu lt * XR Foot Right 3 or More Views (10/11/2024 9:41 AM CDT) Anatomical Region Laterality Modality Lower Extremities, Foot Right Computed Radiography 10/11/2024 9:54 AM CDT Impressions 10/11/2024 9:54 AM CDT 1. Unchanged inflammatory arthritis of the bilateral forefeet with no new erosion or joint space narrowing in the hands and feet. 2. Moderate to severe osteoarthritis of the hands, worst at the finger DIP joints. Electronically signed by: Bert Johnson M.D. Narrative 10/11/2024 9:54 AM CDT EXAMINATION: XR HAND RIGHT 3 OR MORE VIEWS, XR HAND LEFT 3 OR MORE VIEWS, XR FOOT RIGHT 3 OR MORE VIEWS, XR FOOT LEFT 3 OR MORE VIEWS HISTORY: Seropositive rheumatoid arthritis FINDINGS: 3 view examinations of both hands and both feet are compared with studies from 11/19/2021. Hands: There is severe bilateral osteoarthritis at the finger distal interphalangeal joints, worst at the index and small fingers, where there are central erosions and periarticular soft tissue swelling. There is moderate osteoarthritis at the thumb basal joints. There is no new erosion or joint space narrowing. Feet: There is bilateral hallux valgus and metatarsus primus varus with bunions. There are unchanged erosions at the bilateral 1st, right 3rd, and left 5th metatarsophalangeal joints. There is moderate secondary osteoarthritis at the right 3rd metatarsophalangeal joint with dorsal subluxation. There is an old, healed fracture of the left 3rd metatarsal shaft. There is no new fracture. There is no new erosion or joint space narrowing. Small bilateral heel spurs are present. Procedure Note Bert Johnson MD - 10/11/2024 EXAMINATION: XR HAND RIGHT 3 OR MORE VIEWS, XR HAND LEFT 3 OR MORE VIEWS, XR FOOT RIGHT 3 OR MORE VIEWS, XR FOOT LEFT 3 OR MORE VIEWS HISTORY: Seropositive rheumatoid arthritis FINDINGS: 3 view examinations of both hands and both feet are compared with studies from 11/19/2021. Hands: There is severe bilateral osteoarthritis at the finger distal interphalangeal joints, worst at the index and small fingers, where there are central erosions and periarticular soft tissue swelling. There is moderate osteoarthritis at the thumb basal joints. There is no new erosion or joint space narrowing. Feet: There is bilateral hallux valgus and metatarsus primus varus with bunions. There are unchanged erosions at the bilateral 1st, right 3rd, and left 5th metatarsophalangeal joints. There is moderate secondary osteoarthritis at the right 3rd metatarsophalangeal joint with dorsal subluxation. There is an old, healed fracture of the left 3rd metatarsal shaft. There is no new fracture. There is no new erosion or joint space narrowing. Small bilateral heel spurs are present. IMPRESSION: 1. Unchanged inflammatory arthritis of the bilateral forefeet with no new erosion or joint space narrowing in the hands and feet. 2. Moderate to severe osteoarthritis of the hands, worst at the finger DIP joints. Electronically signed by: Bert Johnson M.D. us Yumiko Shaffer MD IMG XR PROCEDURES Final Resu lt * XR Hand Left 3 or More Views (10/11/2024 9:41 AM CDT) Anatomical Region Laterality Modality Upper Extremities, Hand Left Computed Radiography 10/11/2024 9:54 AM CDT Impressions 10/11/2024 9:54 AM CDT 1. Unchanged inflammatory arthritis of the bilateral forefeet with no new erosion or joint space narrowing in the hands and feet. 2. Moderate to severe osteoarthritis of the hands, worst at the finger DIP joints. Electronically signed by: Bert Johnson M.D. Narrative 10/11/2024 9:54 AM CDT EXAMINATION: XR HAND RIGHT 3 OR MORE VIEWS, XR HAND LEFT 3 OR MORE VIEWS, XR FOOT RIGHT 3 OR MORE VIEWS, XR FOOT LEFT 3 OR MORE VIEWS HISTORY: Seropositive rheumatoid arthritis FINDINGS: 3 view examinations of both hands and both feet are compared with studies from 11/19/2021. Hands: There is severe bilateral osteoarthritis at the finger distal interphalangeal joints, worst at the index and small fingers, where there are central erosions and periarticular soft tissue swelling. There is moderate osteoarthritis at the thumb basal joints. There is no new erosion or joint space narrowing. Feet: There is bilateral hallux valgus and metatarsus primus varus with bunions. There are unchanged erosions at the bilateral 1st, right 3rd, and left 5th metatarsophalangeal joints. There is moderate secondary osteoarthritis at the right 3rd metatarsophalangeal joint with dorsal subluxation. There is an old, healed fracture of the left 3rd metatarsal shaft. There is no new fracture. There is no new erosion or joint space narrowing. Small bilateral heel spurs are present. Procedure Note Bert Johnson MD - 10/11/2024 EXAMINATION: XR HAND RIGHT 3 OR MORE VIEWS, XR HAND LEFT 3 OR MORE VIEWS, XR FOOT RIGHT 3 OR MORE VIEWS, XR FOOT LEFT 3 OR MORE VIEWS HISTORY: Seropositive rheumatoid arthritis FINDINGS: 3 view examinations of both hands and both feet are compared with studies from 11/19/2021. Hands: There is severe bilateral osteoarthritis at the finger distal interphalangeal joints, worst at the index and small fingers, where there are central erosions and periarticular soft tissue swelling. There is moderate osteoarthritis at the thumb basal joints. There is no new erosion or joint space narrowing. Feet: There is bilateral hallux valgus and metatarsus primus varus with bunions. There are unchanged erosions at the bilateral 1st, right 3rd, and left 5th metatarsophalangeal joints. There is moderate secondary osteoarthritis at the right 3rd metatarsophalangeal joint with dorsal subluxation. There is an old, healed fracture of the left 3rd metatarsal shaft. There is no new fracture. There is no new erosion or joint space narrowing. Small bilateral heel spurs are present. IMPRESSION: 1. Unchanged inflammatory arthritis of the bilateral forefeet with no new erosion or joint space narrowing in the hands and feet. 2. Moderate to severe osteoarthritis of the hands, worst at the finger DIP joints. Electronically signed by: Bert Johnson M.D. us Yumiko Shaffer MD IMG XR PROCEDURES Final Resu lt * XR Hand Right 3 or More Views (10/11/2024 9:41 AM CDT) Anatomical Region Laterality Modality Upper Extremities, Hand Right Computed Radiography 10/11/2024 9:54 AM CDT Impressions 10/11/2024 9:54 AM CDT 1. Unchanged inflammatory arthritis of the bilateral forefeet with no new erosion or joint space narrowing in the hands and feet. 2. Moderate to severe osteoarthritis of the hands, worst at the finger DIP joints. Electronically signed by: Bert Johnson M.D. Narrative 10/11/2024 9:54 AM CDT EXAMINATION: XR HAND RIGHT 3 OR MORE VIEWS, XR HAND LEFT 3 OR MORE VIEWS, XR FOOT RIGHT 3 OR MORE VIEWS, XR FOOT LEFT 3 OR MORE VIEWS HISTORY: Seropositive rheumatoid arthritis FINDINGS: 3 view examinations of both hands and both feet are compared with studies from 11/19/2021. Hands: There is severe bilateral osteoarthritis at the finger distal interphalangeal joints, worst at the index and small fingers, where there are central erosions and periarticular soft tissue swelling. There is moderate osteoarthritis at the thumb basal joints. There is no new erosion or joint space narrowing. Feet: There is bilateral hallux valgus and metatarsus primus varus with bunions. There are unchanged erosions at the bilateral 1st, right 3rd, and left 5th metatarsophalangeal joints. There is moderate secondary osteoarthritis at the right 3rd metatarsophalangeal joint with dorsal subluxation. There is an old, healed fracture of the left 3rd metatarsal shaft. There is no new fracture. There is no new erosion or joint space narrowing. Small bilateral heel spurs are present. Procedure Note Bert Johnson MD - 10/11/2024 EXAMINATION: XR HAND RIGHT 3 OR MORE VIEWS, XR HAND LEFT 3 OR MORE VIEWS, XR FOOT RIGHT 3 OR MORE VIEWS, XR FOOT LEFT 3 OR MORE VIEWS HISTORY: Seropositive rheumatoid arthritis FINDINGS: 3 view examinations of both hands and both feet are compared with studies from 11/19/2021. Hands: There is severe bilateral osteoarthritis at the finger distal interphalangeal joints, worst at the index and small fingers, where there are central erosions and periarticular soft tissue swelling. There is moderate osteoarthritis at the thumb basal joints. There is no new erosion or joint space narrowing. Feet: There is bilateral hallux valgus and metatarsus primus varus with bunions. There are unchanged erosions at the bilateral 1st, right 3rd, and left 5th metatarsophalangeal joints. There is moderate secondary osteoarthritis at the right 3rd metatarsophalangeal joint with dorsal subluxation. There is an old, healed fracture of the left 3rd metatarsal shaft. There is no new fracture. There is no new erosion or joint space narrowing. Small bilateral heel spurs are present. IMPRESSION: 1. Unchanged inflammatory arthritis of the bilateral forefeet with no new erosion or joint space narrowing in the hands and feet. 2. Moderate to severe osteoarthritis of the hands, worst at the finger DIP joints. Electronically signed by: Bert Johnson M.D. us Yumiko Shaffer MD IMG XR PROCEDURES Final Resu lt documented in this encounter Visit Diagnoses Diagnosis Seropositive rheumatoid arthritis of multiple sites (HCC)- Primary Primary osteoarthritis involving multiple joints High risk medication use Other osteoporosis without current pathological fracture documented in this encounter Discontinued Medications Medication Sig Discontinue Reason Start Date End Da te multivitamin (MULTI-DAY) tablet tablet take 1 tablet by oral route every day with food 08/29/2011 10/11/2024 meloxicam (MOBIC) 15 mg tablet Take 1 tablet (15 mg total) by mouth daily 04/20/2024 10/11/2024 upadacitinib (RINVOQ) 15 mg extended release tablet Take 1 tablet (15 mg total) by mouth daily 08/24/2024 10/11/2024 etanercept (ENBREL) 50 mg/mL (1 mL) pen injector Inject 1 mL (50 mg total) under the skin once a week Reorder 06/09/2024 10/11/2024 documented as of this encounter Historical Medications * This list may reflect changes made after this encounter. ondansetron ODT (ZOFRAN-ODT) 8 mg disintegrating tablet DISSOLVE 1 TABLET ON THE TONGUE EVERY 8 HOURS NEEDED FOR NAUSEA OR VOMITING 10/04/2024 added in this encounter Care Teams Television And Radio Repairer Relationship Specialty Start Date End Date Noris Limon NP [address] [facility] [place]NOTE 2[facility] [address] [place] [id number] PCP - General Internal Medicine 10/01/24 Yumiko Shaffer MD Consulting Physician Internal Medicine 02/19/23 documented as of this encounter
--- OUTSIDE RECORDS SUMMARY | 2024-10-11 09:15 | XMS_ITS | Encounter Summary ---
Author Organization [facility] Healthcare Address [address] [place] [address] Care Team Providers Care Crusher And Blender Operator Name Role Phone Yumiko Shaffer MD Unavailable [phone] Noris Limon NP Primary Care Provider [phone] Encounter Details Date Type Department Care Team (Late st Contact Info) Description 10/11/2024 9:15 AM CDT Lab [facility] [address] [place] [phone] High risk medication use Social History Tobacco Use Types Packs/Day Years Used Date Smoking Tobacco: Former Cigarettes Q uit: 11/23/2012 Smokeless Tobacco: Never Comments:Smoking History Pac ks/day: 0.75 Packs Alcohol Use Standard Drinks/Week Comments [...] on file 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 Gender Identity Not on file Sexual Orientation Not on file documented as of this encounter Plan of Treatment Pending Results Name Type Priority Associated Diagnoses Date /Time T-SPOT.TB Blood Microbiology Routine High risk medication use 10/11/2024 9:10 AM CDT documented as of this encounter Visit Diagnoses Diagnosis High risk medication use documented in this encounter Care Teams Crusher And Blender Operator Relationship Specialty Start Date End Date Noris Limon NP [address] [facility] [address] [address] PCP - General Internal Medicine 10/01/24 Yumiko Shaffer MD Consulting Physician Internal Medicine 02/19/23 documented as of this encounter
--- OUTSIDE RECORDS SUMMARY | 2024-10-11 09:20 | XMS_ITS | Encounter Summary ---
Author Organization [facility] Healthcare Address [address] [place] [address] Care Team Providers Care Clinical Esthetician Name Role Phone Yumiko Shaffer MD Unavailable [phone] Noris Limon NP Primary Care Provider [phone] Reason for Visit * Diagnostic Imaging (Routine) - Closed Specialty Diagnoses / Procedures Referred By Contbreezy t Referred To Contact Diagnoses Seropositive rheumatoid arthritis of multiple sites (HCC) Procedures XR Foot Left 3 or More Views Yumiko Shaffer MD [address] [place] [address] Phone: tel: fax: [address] [phone] Referral ID Status Reason Start Date Expiration Date Visits Re quested Visits Authorized [id number] Closed 10/11/2024 11/10/2025 1 1 Encounter Details Date Type Department Care Team (Latest Contact Info) Description 10/11/2024 9:20 AM CDT - 10/11/2024 11:59 PM CDT Hospital Encounter [facility] [address] [place] [id number] Yumiko Shaffer MD [address] [place] [address] Arrived Discharge Disposition: Discharge to home or self care Social History Tobacco Use Types Packs/Day Years [...] on file 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 Gender Identity Not on file Sexual Orientation Not on file documented as of this encounter Medications at Time of Discharge ALPRAZolam (XANAX) 0.25 mg tablet Take 1 tablet (0.25 mg total) by mouth daily as needed 01/19/2024 calcium (CALCIO PATRICK) 500 mg tablet take 1 tablet twice a day 0 08/29/2011 cefpodoxime (VANTIN) 100 mg tablet Take 2 tablets (200 mg total) by mouth 2 (two) times a day for 10 days 40 tablet 10/02/2024 etanercept (ENBREL) 50 mg/mL (1 mL) pen injectorIndications: Seropositive rheumatoid arthritis of multiple sites (HCC) Inject 1 mL (50 mg total) under the skin once a week 12 mL 1 10/11/2024 hydroxychloroquine (PLAQUENIL) 200 mg tabletIndications:Rh eumatoid Arthritis Take 2 tablets by mouth on Friday; Take 1 tablet by mouth all other days 96 tablet 3 09/29/2023 ondansetron ODT (ZOFRAN-ODT) 8 mg disintegrating tablet DISSOLVE 1 TABLET ON THE TONGUE EVERY 8 HOURS NEEDED FOR NAUSEA OR VOMITING 10/04/2024 oxybutynin (DITROPAN) 5 mg tablet Take 1 tablet (5 mg total) by mouth 2 (two) times a day 06/21/[address] (PROTONIX) 40 mg EC tablet Take 1 tablet (40 mg total) by mouth every morning 11/13/2020 PARoxetine (PAXIL) 10 mg tablet Take 1 tablet (10 mg total) by mouth daily 30 tablet 1 01/25/2020 documented as of this encounter Discharge Disposition Disposition Code Departure Means Destination Discharge to home or self care documented in this encounter Plan of Treatment Not on file documented as of this encounter Procedures Procedure Name Priority Date/Time Associated Diagnosis Comments XR FOOT LEFT 3 OR MORE VIEWS Schedule Routine, Read Routine (OP Routine) 10/11/2024 9:41 AM CDT Seropositive rheumatoid arthritis of multiple sites (HCC) XR FOOT RIGHT 3 OR MORE VIEWS [...] joints. Electronically signed by: Bert Johnson M.D. Yumiko Shaffer MD IMG XR PROCEDURES Final [...] joints. Electronically signed by: Bert Johnson M.D. Yumiko Shaffer MD IMG XR PROCEDURES Final Resu lt documented in this encounter Visit Diagnoses Not on filedocumented in this encounter Care Teams Clinical Esthetician Relationship Specialty Start Date End Date Noris Limon NP [facility] [address] [address] PCP - General Internal Medicine 10/01/24 Yumiko Shaffer MD Consulting Physician Internal Medicine 02/19/23 documented as of this encounter
--- NOTE | ~2024-10-12 | DEXA_ITS ---
Bone Density Report Name: ORTEGA ESTRADA Age: 74 Sex: Female Ethnicity: White Date of : 1950 Indication: osteopenia; monitoring treatment; parental hip fracture; height loss; history of glucocorticoids; hysterectomy; rheumatoid arthritis; Referring Provider: CARLOTA WARNER Study: Bone densitometry was performed. Exam Date: October 12, 2024 Accession number: [id number] Bone Density: Region BMD T-score Z-score Classification AP Spine(L1-L4) 0.833 -1.9 0.3 Osteopenia Femoral Neck (Left) 0.560 -2.6 -0.7 Osteoporosis Total Hip (Left) 0.651 -2.4 -0.7 Osteopenia Femoral Neck (Right) 0.553 -2.7 -0.7 Osteoporosis Total Hip (Right) 0.660 -2.3 -0.7 Osteopenia Total Hip Mean 0.656 -2.4 -0.7 Osteopenia World Health Organization criteria for BMD impression classify patients as: Normal (T-score at or above -1.0), Osteopenia (T-score between -1.0 and -2.5), or Osteoporosis (T-score at or below -2.5). 10-year Fracture Risk: FRAX not reported because: Some T-score for Spine Total or Hip Total or Femoral Neck at or below -2.5 Treated for osteoporosis Previous Exams: Region Exam Age BMD T-score BMD Change BMD Change Date g/cm2 vs Baseline vs Previous AP Spine (L1-L4) 10/12/2024 74 0.833 -1.9 -0.063 (-7.0%) -0.014 (-1.7%) 12/11/2021 71 0.848 -1.8 -0.048 (-5.4%) -0.048 (-5.4%) 04/28/2014 64 0.896 -1.4 Total Hip(Left) 10/12/2024 74 0.651 -2.4 -0.100 (-13.3% -0.004 (-0.6%) 12/11/2021 71 0.655 -2.4 -0.096 (-12.8% -0.044 (-6.3%) 11/26/2017 67 0.699 -2.0 -0.052 (-7.0%) -0.052 (-7.0%) 04/28/2014 64 0.751 -1.6 Total Hip(Right) 10/12/2024 74 0.660 -2.3 -0.103 (-13.5% -0.023 (-3.3%) 12/11/2021 71 0.683 -2.1 -0.081 (-10.6% -0.016 (-2.3%) 11/26/2017 67 0.699 -2.0 -0.065 (-8.5%) -0.065 (-8.5%) 04/28/2014 64 0.764 -1.5 *Denotes significance at 95% confidence level, LSC for AP Spine = 0.022 g/cm2, LSC for Total Hip = 0.027 g/cm2 Clinical Information Provided by Patient: Parent has had a hip fracture Has taken Glucocorticoids Has rheumatoid arthritis Is being treated for osteoporosis Has used the following medications: Reclast (i.e. zoledronate), Vitamin D, Calcium Has the following medical conditions: Hysterectomy Patient maximum height was 60.5 Menopause Age: 51 Drinks caffeinated beverages Onset of menses at age 14 Number of children 2 Impression: The patient has osteoporosis, based on the Right Femoral Neck T-score. The patient has risk factors, including: parental hip fracture, history of glucocorticoid therapy. No significant bone loss was observed. Discussion: PATIENT UNDER TREATMENT WITH NO SIGNIFICANT BMD LOSS SINCE LAST EXAM. In an untreated patient, BMD typically declines with age. A lack of decline or gain is usually a sign that treatment is efficacious and fracture risk is reduced. It is important to ask patients whether they are taking their medications and to encourage continued and appropriate compliance with their osteoporosis therapies to reduce fracture risk. It is also important to review their risk factors and encourage appropriate calcium and vitamin D intakes, exercise, fall prevention and other lifestyle measures. Follow-Up: Consider a repeat BMD and Vertebral Fracture Assessment (VFA) exam in 2 years or sooner if medically necessary, to reassess this patient's status. Reported by: ZAHEER on 10/12/2024 3:39:00 PM. Reviewed, dictated and finalized at location A.
--- NOTE | ~2024-10-12 | MM_ITS ---
EXAMINATION: MM screening fatimah BI w gabrielle HISTORY: Screening TECHNIQUE: Craniocaudal and mediolateral oblique 3-D tomosynthesis images were obtained and synthetic 2-D images were generated. CAD analysis was submitted and interpreted. COMPARISON: Comparison to multiple prior studies sequentially, with oldest reviewed study dated 08/26/2016. BREAST PARENCHYMAL COMPOSITION: The breasts are heterogeneously dense, which may obscure small masses. FINDINGS: There is no evidence of suspicious mass, calcification, or architectural distortion to suggest malignancy in either breast. IMPRESSION: 1. No mammographic evidence of malignancy. 2. Recommend routine screening mammography in one year. BI-RADS Category 1: Negative Reviewed, dictated and finalized at location B.
--- OUTSIDE RECORDS SUMMARY | 2024-10-12 15:02 | XMS_ITS | Clinical Summary ---
Author Organization [facility] Care Team Providers Care Masseur/Masseuse Name Role Phone Unavailable Primary Care Provider Unavailabl e Social History Tobacco Use Types Packs/Day Years Used Date Smoking Tobacco: Never Assessed Comments Unknown Sex and Gender Information Value Date Recorded Sex Assigned at Not on file Legal Sex Female 2:34 PM CDT Gender Identity Not on file Sexual Orientation Not on file Plan of Treatment Health Maintenance Due Date Last Done Comments Hepatitis C Virus (HCV) Screening 1950 TdaP Immunization 1950 Cologuard 1997 Colonoscopy 1997 Colorectal Cancer Screening 1997 Immunochemical Fecal Occult Blood 1997 Pneumococcal Immunization (5 0+ years) (1 of 1 - PCV) 2002 Zoster Immunization (1 of 2) 2002 SARS-COV-2 Immunization (3 - season) 2023 05/02/2020, 04/11/2020 Influenza Immunization (#1) 2024 Respiratory Syncytial Virus (RSV) Immunization (Adult) (1 - 1-dose 75+ series) 04/23/2027 Hepatitis B Immunization Aged Out No longer eligible based on patient's age to complete this topic Human Papillomavirus (HPV) Immunization Aged Out No longer eligible b ased on patient's age to complete this topic Meningococcal Immunization (ACWY) Aged Out No longer eligible b ased on patient's age to complete this topic Rotavirus Immunization Aged Out No lo nger eligible based on patient's age to complete this topic
--- OUTSIDE RECORDS SUMMARY | 2024-10-12 15:02 | XMS_ITS | Encounter Summary ---
Author Organization [facility] Address [address] [place] [address] Phone Care Team Providers Care Disability Case Manager Name Role Phone Beatriz Nuñez MD Primary Care Provider [phone] Yumiko Shaffer MD Unavailable [phone] Noris Limon NP Primary Care Provider [phone] Encounter Details Date Type Department Care Team (Late st Contact Info) Description 12/11/2021 Orders Only [facility] IM RHEUMATOLOGY Scanning, Provider Social History Tobacco Use Types Packs/Day Years [...] Answer Date Recorded PHQ-2 Score 0 10/09/2018 Comments No Sex and Gender Information Value Date Recorded Sex Assigned at Not on file 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 Gender Identity Not on file Sexual Orientation Not on file documented as of this encounter Plan of Treatment Not on file documented as of this encounter Procedures Procedure Name Priority Date/Time Associated Diagnosis Comments SCAN - RADIOLOGY/IMAGING 12/11/2021 documented in this encounter Results * SCAN - RADIOLOGY/IMAGING (12/11/2021) Anatomical Region Laterality Modality Other Provider Scanning Final Result documented in this encounter Visit Diagnoses Not on filedocumented in this encounter Additional Health Concerns Infection Onset Date Last Indicated Resolved Time COVID: Suspected 10/01/2024 10/01/2024 10/01/2024 10:43 PM CDT COVID: Suspected 10/01/2024 10/01/2024 10/01/2024 11:34 PM CDT documented as of this encounter Care Teams Disability Case Manager Relationship Specialty Start Date End Date Beatriz Nuñez MD [address] [place] [address] PCP - General 05/20/16 09/30/24 Noris Limon NP [address] [place] [address] [place] [address] PCP - General Internal Medicine 10/01/24 Yumiko Shaffer MD [address] [place] [address] Consulting Physician Internal Medicine 02/19/23 documented as of this encounter
--- OUTSIDE RECORDS SUMMARY | 2024-10-12 15:02 | XMS_ITS | Encounter Summary ---
Author Organization [facility] Address [address] [place] [address] Care Team Providers Care Antisqueak Applier Name Role Phone Beatriz Nuñez MD Primary Care Provider [phone] Encounter Details Date Type Department Care Team (Late st Contact Info) Description 08/06/2019 Lab Requisition [facility] Derm[facility] Lab [address] [place] [address] Lew Cedeno MD [facility] [place] [address] Social History Tobacco Use Types Packs/Day Years Used Date Smoking Tobacco: Never Assessed Comments Unknown Sex and Gender Information Value Date Recorded Sex Assigned at Not on file Legal Sex Female 10:10 AM CDT Gender Identity Not on file Sexual Orientation Not on file documented as of this encounter Plan of Treatment Not on file documented as of this encounter Procedures Procedure Name Priority Date/Time Associated Diagnosis Comments DERMATOPATHOLOGY Routine 08/04/2019 12:0 0 AM CDT documented in this encounter Results * DERMATOPATHOLOGY (08/04/2019 12:00 AM CDT) Case Report Dermatopathology Report Case: [id number] Authorizing Provider: Lew Cedeno MD Collected: 08/04/2019 12:00 AM Ordering Location: [facility] Lab Received: 08/06/2019 06:36 AM Pathologist: Taylor Magdaleno MD Specimen: Skin, right ant tib 0 6:56 PM CDT DERMATOPATHOLOGY LABORATORY Final Diagnosis Specimen A. SKIN, right ant tib: SEBORRHEIC KERATOSIS, IRRITATED (L82.0) (see microscopic description) 0 6:56 PM CDT DERMATOPATHOLOGY LABORATORY at 1855 CDT Clinical History R/O Neoplasm vs benign nevi 0 6:56 PM CDT DERMATOPATHOLOGY LABORATORY Gross Description Specimen A: Received is one formalin filled container labeled with the patient's name and designated right ant tib. The specimen consists of a shave biopsy measuring 4x4x1 mm. Jar 0. 0 6:56 PM CDT DERMATOPATHOLOGY LABORATORY Microscopic Description Specimen A. SKIN, right ant tib: There is acanthosis consisting of fairly uniform squamous cells with eosinophilic cytoplasm and squamous eddies. Additional deeper sections were obtained and reviewed. 0 6:56 PM CDT DERMATOPATHOLOGY LABORATORY Disclaimer An external and internal positive and negative controls are appropriate for the histochemical, immunohistochemical and immunofluorescence stain(s) in this case (if any), except where stated explicitly. The performance characteristics of the stain(s) cited in this report were developed and its performance characteristic determined by the Dermatopathology Laboratory at [facility], directed by Dr. Wayne Vasques. These tests need not be, and therefore are not, approved by the [place] Food and Drug Administration. The tests are used for clinical purposes. Billing Codes Specimen Charges Stain Charges 85317 1 0 6:56 PM CDT DERMATOPATHOLOGY LABORATORY Embedded Images 0 6:56 PM CDT DERMATOPATHOLOGY LABORATORY Pathology/Cytolog y TISSUE SPECIMEN FROM SKIN / Unknown 08/04/2019 08/06/2019 6:36 AM CDT us Lew Cedeno MD LAB - PATHOLOGY/CYTOLOGY ORDERAB LES Final Result DERMATOPATHOLOGY LABORATORY [facility] - Department of Dermatology Order Dispatcher [facility]/[place] [address], [facility] [phone] documented in this encounter Visit Diagnoses Not on filedocumented in this encounter Care Teams Antisqueak Applier Relationship Specialty Start Date End Date Beatriz Nuñez MD [address] [place] [id number] PCP - General 05/01/18 documented as of this encounter
--- OUTSIDE RECORDS SUMMARY | 2024-10-12 15:02 | XMS_ITS | Encounter Summary ---
Author Organization [facility] Address [address] [place] [address] Phone Care Team Providers Care Control Officer Manager Name Role Phone Yumiko Shaffer MD Unavailable [phone] Noris Limon NP Primary Care Provider [phone] Encounter Details Date Type Department Care Team (Late st Contact Info) Description 10/11/2024 Results Follow-Up [facility] Medicine Rheumatology [address] [facility] Advanced Medicine 5th [place] [address] [place] [address] Yumiko Shaffer MD [address] [place] [address] XR Foot Left 3 or More Views Social History Tobacco Use Types Packs/Day Years [...] on file Legal Sex Female 5:33 PM 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 [employer] Gender Identity Not on file Sexual Orientation Not on file documented as of this encounter Miscellaneous Notes * Telephone Encounter - Yumiko Shaffer MD - 10/11/2024 10:06 AM CDT Results letter documented in this encounter Plan of Treatment Not on file documented as of this encounter Visit Diagnoses Not on filedocumented in this encounter Care Teams Control Officer Manager Relationship Specialty Start Date End Date Noris Limon NP [facility] [facility] [place] [place] [address] PCP - General Internal Medicine 10/01/24 Yumiko Shaffer MD Consulting Physician Internal Medicine 02/19/23 documented as of this encounter
--- OUTSIDE RECORDS SUMMARY | 2024-10-12 15:02 | XMS_ITS | Clinical Summary ---
Author Organization [facility] Address [address] [place] [id number] Care Team Providers Care Philosophy Faculty Member Name Role Phone Yumiko Shaffer MD Unavailable [phone] Noris Limon NP Primary Care Provider [phone] Allergies Active Allergy Reactions Criticality Noted Date Comments Adalimumab Urticaria Reaction: urticaria, Erythromycin Stomach upset Reaction: Stomach Pain, Medications calcium (CALCIO PATRICK) 500 mg tablet take 1 tablet twice a day 0 08/29/19 12 Active oxybutynin (DITROPAN) 5 mg tablet Take 1 tablet (5 mg total) by mouth 2 (two) times a day 06/22/19 18 Active PARoxetine (PAXIL) 10 mg tablet Take 1 tablet (10 mg total) by mouth daily 30 tablet 1 01/25/[address] (PROTONIX) 40 mg EC tablet Take 1 tablet (40 mg total) by mouth every morning 11/14/19 21 Active hydroxychloroquin e (PLAQUENIL) 200 mg tabletIndications :Rheumatoid Arthritis Take 2 tablets by mouth on Friday; Take 1 tablet by mouth all other days 96 tablet 3 09/29/19 24 Active ALPRAZolam (XANAX) 0.25 mg tablet Take 1 tablet (0.25 mg total) by mouth daily as needed 01/19/20 24 Active cefpodoxime (VANTIN) 100 mg tablet Take 2 tablets (200 mg total) by mouth 2 (two) times a day for 10 days 40 tablet 10/03/19 25 025 Active ondansetron ODT (ZOFRAN-ODT) 8 mg disintegrating tablet DISSOLVE 1 TABLET ON THE TONGUE EVERY 8 HOURS NEEDED FOR NAUSEA OR VOMITING 10/05/19 25 Active etanercept (ENBREL) 50 mg/mL (1 mL) pen injectorIndicatio ns:Seropositive rheumatoid arthritis of multiple sites (HCC) Inject 1 mL (50 mg total) under the skin once a week 12 mL 1 10/12/19 25 Active multivitamin (MULTI-DAY) tablet tablet take 1 tablet by oral route every day with food 0 08/29/19 12 025 Discontinued meloxicam (MOBIC) 15 mg tablet Take 1 tablet (15 mg total) by mouth daily 04/21/19 025 Discontinued etanercept (ENBREL) 50 mg/mL (1 mL) pen injector Inject 1 mL (50 mg total) under the skin once a week 12 mL 1 06/10/19 25 025 Discontinued(R eorder) predniSONE (DELTASONE) 5 mg tabletIndications :Seropositive rheumatoid arthritis of multiple sites (HCC) Take 4 tablets (20 mg) by mouth daily for 7 days, THEN 3 tablets (15 mg) daily for 7 days, THEN 2 tablets (10 mg) daily for 7 days, THEN 1 tablet (5 mg) daily for 7 days. 70 tablet 08/24/19 25 025 upadacitinib (RINVOQ) 15 mg extended release tablet Take 1 tablet (15 mg total) by mouth daily 30 tablet 08/25/19 25 025 Discontinued Active Problems Problem Noted Date Diagnosed Date RADHA (acute kidney injury) 03/07/2021 Assessment & Plan (03/08/2021 7:50 AM [employer]): Cr upon admission was 1.37 in the setting of dehydration 2/2 vomiting. - Cr downtrend to normal with IVF resuscitation and decompression of HH with NGT - continue mIVF Abdominal pain 03/05/2021 Hiatal hernia 03/05/2021 Assessment & Plan (03/08/2021 7:58 AM [employer]): Per CT scan: Large hiatus hernia with development of organoaxial gastric volvulus with likely associated gastric outlet obstruction secondary to the hernia and volvulus. No findings to suggest ischemia at this time. - NGT to LIWS - NPO except ice chips - mIVF - OR today for Lap HH repair - DVT PPX Hypokalemia 03/05/2021 Assessment & Plan (03/08/2021 7:50 AM [employer]): - monitor Osteoporosis 06/12/2020 Advice given about 2019 novel coronavirus by tel coronaone 06/18/2019 Assessment & Plan (06/18/2019 7:16 PM CDT): The full impact of autoimmune disease and immunomodulatory medications on susceptibility and complications of coronavirus disease is not yet studied. Because we have novelty chain maker with this new virus we do not currently have absolute answers. Currently we are not recommending that patients stop their medications during this period of uncertainty. We do not want to risk letting your disease flare, as treating a flare during this health care crisis is more difficult as well due to the immunosuppressive effects of steroids. The usual CDC precautions for minimizing coronavirus risk are appropriate. Frequently wash your hands with soap and water for at least 20 seconds. When soap and running water are unavailable, use an alcohol-based hand rub with at least 60% alcohol. Always wash hands that are visibly soiled. Avoid touching your eyes, nose, or mouth with unwashed hands. Avoid close contact with people who are sick and maintain social distancing. The CDC has recommended that ALL persons wear a fabric mask when out in public. Obviously this is a fast-moving issue and the CDC is providing regular updates as the course and extent of the epidemic is monitored. You may keep up to date at the CDC website: www.coronavirus.gov You may also find more information relevant to your questions at the [employer] webpage: arthritis.org. Click on the Coronavirus banner. It is imperative that you adhere to the [id number]-mv-[id number] orders issued for your community, especially in view of your potentially immunocompromised status. Feel free to reach out to us if you have additional questions after you review this information. You may review the current [employer] Covid-19 clinical guidance for Patients with Rheumatic Diseases if you copy and paste the link below into your web browser: [email or web address] [email or web address]-[email or web address] Encounter for long-term (cur rent) use of high-risk medication 10/28/2016 Assessment & Plan (04/10/2021 8:11 PM [employer]): Long-term use of high-risk medication requiring regular monitoring. Labs ordered, no s/s of med tox or infection. Encouraged to work with PCP to make sure all recommended cancer screens and vaccinations are complete. Avoid live-vaccines unless reviewed with oracle manufacturing consultant first. HCQ eye exams every 6 months. Assessment & Plan (06/18/2019 7:16 PM CDT): Lab Results Component Value Date WBC 7.0 01/26/2019 HGB 12.4 01/26/2019 HCT 39.7 01/26/2019 MCV 99.3 (H) 01/26/2019 LABPLAT 250 01/26/2019 Chemistry Lab Results Component Value Date SODIUM 143 01/26/2019 SODIUM 139 07/25/2016 POTASSIUM 3.9 01/26/2019 POTASSIUM 3.9 07/25/2016 CHLORIDE 103 01/26/2019 CHLORIDE 105 07/25/2016 CO2 26 01/26/2019 CO2 27 07/25/2016 ANIONGAP 14 01/26/2019 BUNSER 17 01/26/2019 BUNSER 23 07/25/2016 CREATININE 0.72 01/26/2019 CREATININE 0.78 07/25/2016 GLUCOSE 84 01/26/2019 GLUCOSE 74 07/25/2016 CALCIUM 9.5 01/26/2019 CALCIUM 9.4 07/25/2016 BILITOT 0.3 01/26/2019 ALBUMIN 4.1 01/26/2019 GFRNAA 87 01/26/2019 ALKPHOS 64 01/26/2019 AST 28 01/26/2019 AST 21 07/25/2016 ALT 18 01/26/2019 ALT 15 07/25/2016 Lab Results Component Value Date SEDRATE 29 01/26/2019 Lab Results Component Value Date CRP 1.3 01/26/2019 Patient on medications requiring periodic lab monitoring for drug safety. Update lab as per orders written. She will have lab drawn when she returns for her next Orencia infusion at the end of this month. Assessment & Plan (01/26/2019 11:28 AM [employer]): Patient on immunosuppressive medications requiring periodic lab monitoring for drug safety. Update lab as per orders written. Assessment & Plan (08/04/2018 2:21 PM CDT): Patient on immunosuppressive medications requiring periodic lab monitoring for drug safety. Update lab as per orders written. Assessment & Plan (02/25/2018 12:12 PM [employer]): Patient on immunosuppressive medications requiring periodic lab monitoring for drug safety. Update lab as per orders written. Assessment & Plan (10/28/2017 5:37 PM CDT): Patient on immunosuppressive medications requiring periodic lab monitoring for drug safety. Update lab as per orders written. Assessment & Plan (06/30/2017 9:50 AM CDT): Patient on immunosuppressive medications requiring periodic lab monitoring for drug safety. Update lab as per orders written. Assessment & Plan (02/26/2017 12:01 PM [employer]): Patient on immunosuppressive medications requiring periodic lab monitoring for drug safety. Update lab as per orders written. Assessment & Plan (10/28/2016 3:04 PM CDT): Patient on immunosuppressive medications requiring periodic lab monitoring for drug safety. Update lab as per orders written. BMI 22.0-22.9, adult 10/28/2016 Assessment & Plan (01/26/2019 11:28 AM [employer]): BMI satisfactory. A healthy diet and routine exercise regimen are frye to weight management. Assessment & Plan (08/04/2018 2:21 PM CDT): BMI satisfactory. A healthy diet and routine exercise regimen are frye to weight management. Assessment & Plan (02/25/2018 12:12 PM [employer]): Weight loss noted. Good work! BMI satisfactory. A healthy diet and routine exercise regimen are frye to weight management. Assessment & Plan (10/28/2017 5:36 PM CDT): BMI normal. Continue healthy diet and exercise regimen. Assessment & Plan (06/30/2017 9:49 AM CDT): BMI normal. Continue healthy diet and exercise regimen. Assessment & Plan (02/26/2017 12:00 PM [employer]): BMI normal. Continue healthy diet and exercise regimen. Rheumatoid arthritis involvi ng multiple sites with positive rheumatoid factor (CMS/HCC) 11/04/2013 Overview (11/24/2020): Images from the original note were not included. 12/06-Rheum Hx: In 2000 developed pain in toes, neck and shoulders, hands and knees, Dx with RA, started on plaquenil, and prednisone, then switched methotrexate (elevated LFTs), remicade (was on until insurance switched her to [id number] yrs), then was on Humira (helped for years, but then broke out in urticaria and had to stop), then now has been on Orencia since, initially on SQ injection then infusion. Assessment & Plan (04/10/2021 8:12 PM [employer]): -Currently stable on Orencia 500 mg IV every 4 weeks, plaquenil 200 mg bid ttoday she has no active synovitis, primarily OA changes in hands. Continue plaquenil with eye exam every 6 mo. Assessment & Plan (03/05/2021 8:16 AM [employer]): Holding home dose of Plaquenil and prednisone Assessment & Plan (06/18/2019 7:15 PM CDT): RA clinically stable on current med regimen (hydroxychloroquine, Orencia and low dose prednisone). She thinks she was better controlled when taking prednisone 2.5 mg daily rather than every other day and I advised that is still a low enough dose that it may be safely used. She tolerates her Orencia infusions well (most recent infusion yesterday). Will continue same. Assessment & Plan (01/26/2019 11:27 AM [employer]ER): RA clinically stable on Orencia regimen. No side effect with infusions. Remains on hydroxychloroquine 200 mg once daily. Reinforce importance ophthalmology monitoring. Prednisone 2.5 mg every other day. Recent increase pain hip R>L. Update imaging and lab as per orders. Assessment & Plan (08/04/2018 2:17 PM CDT): RA clinically stable. Rapid3 2.3. No med side effects reported. Remains on IV Orencia and low dose prednisone. Assessment & Plan (02/25/2018 12:12 PM [employer]ER): RA with recent flare (Rapid3 6.7) associated with transition Orencia subcu to IV (not likely the issue). She did wean off prednisone which may account for symptom flare. 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 Will order methylprednisolone dosepack after which she will resume prednisone 5 mg daily for 2 weeks and taper to 2.5 mg daily after that as symptoms tolerate. Update lab as per orders. The possibility of transitioning to an alternate biologic response modifier has been broached and Rituxan suggested as next drug in sequence if decision to proceed. Patient educational materials below: RITUXAN PATIENT INFORMATION: Rituximab (Rituxan and MabThera) is a drug used to treat rheumatoid arthritis that has not improved with other types of medications, as well as certain forms of vasculitis. It works by turning off a part of the immune system that is not working properly in autoimmune diseases. Rituximab is used in combination with methotrexate to treat rheumatoid arthritis that has not responded to one or more types of treatment, including TNF inhibitors. Rituximab also is used to treat certain types of vasculitis (an inflammatory condition affecting blood vessels), such as granulomatosis with polyangiitis or MPA. Occasionally rituximab is used to treat other immune problems, including lupus, and inflammatory muscle diseases. Rituximab also is used in the treatment of some blood disorders, including chronic lymphocytic leukemia and non-Hodgkin s lymphoma. HOW TO TAKE IT: Rituximab is given as an intravenous infusion (IV or d rip ) into a vein. The infusion usually takes two - four hours, although occasionally it can take longer. A course of rituximab for rheumatoid arthritis usually consists of two 1000mg doses given 15 days apart. To treat vasculitis, a smaller dose is given once a week for four weeks in a row. The effects of rituximab begin about six weeks after the infusions. Usually by the third month the full effect occurs, and can last up to nine months. SIDE EFFECTS: Sometimes, patients blood pressure can drop during the treatment. Those who take medication to lower their blood pressure may have to stop it before the infusion. Some patients feel mild side effects during or up to 24 hours after receiving rituximab. These usually occur with the first infusion, and can include mild throat tightening, flu-like symptoms, rash, itchiness, dizziness, back pain, nausea, upset stomach, sweating, nervousness, muscle stiffness, and numbness. These symptoms can be reduced by receiving a steroid injection before the infusion, along with acetaminophen (Tylenol) and diphenhydramine (Benadryl). The infusion is sometimes stopped for a short while and then restarted at a slower rate if the symptoms get better. Rarely, patients will have more serious symptoms, such as wheezing, mouth or throat swelling, trouble breathing, or chest pain. Patients who experience these symptoms should tell their health care providers immediately; patients may receive stronger medications to treat those symptoms. In the months after the treatment, some people may notice more frequent infections, such as colds or sinusitis. Usually, these are not severe. There are a few rare but serious side effects from rituximab. These include severe skin reactions and mouth sores. Patients who experience vision changes, loss of balance, difficulty walking, or confusion should contact their doctors immediately. Combining treatment with other biologic drugs, which suppress the immune system, including etanercept (Enbrel), adalimumab (Humira), infliximab (Remicade), certolizumab (Cimzia), golimumab (Simponi), abatacept (Orencia), and tocilizumab (Actemra) may increase the risk of serious infections and medication side effects. Blood pressure medications may increase the risk of low blood pressure during the infusion. TELL YOUR DOCTOR: Tell your doctor if you have lung or heart problems, or have ever had any major infections (especially hepatitis). Let your health care providers know about all medications you are currently taking, including [id number] medications, supplements, and herbal therapies. Also, tell them about all allergic reactions you have had to medications. If you are a woman who can get , it is important to use reliable control before treatment and for 12 months afterward. Since vaccines are not as effective for several months after receiving rituximab, you should ideally receive necessary ones before starting treatment or between courses. Updated May 2016 by Param Manuel MD and reviewed by the [employer] Committee on Communications and Marketing. This information is provided for general education only. Individuals should consult a qualified health care provider for professional medical advice, diagnosis and treatment of a medical or health condition. 2017 [employer] - See more at: [email or web address] [email or web address] Assessment & Plan (10/28/2017 9:43 PM CDT): Doing well on IV abatacept. Orencia. Rapid3 2.3. No med side effects reported. Continue same. Assessment & Plan (06/30/2017 9:51 AM CDT): Clinically stable on present med regimen. No acute complaints. Reduce prednisone to 2.5 mg every other day, otherwise continue same. Plan transition to IV Orencia when current subcutaneous supply exhausted. Assessment & Plan (02/26/2017 12:01 PM [employer]): Well controlled on current med regimen. Continue same. Reduce hydroxychloroquine to 200 mg ONCE daily. Continue weekly Orencia and low dose prednisone. When Medicare activates will transition to [place] Orencia (once monthly). Other osteoporosis without current pathological fracture 12/05/2011 Overview (01/26/2019): Images from the original note were not included. DEXA 11/26/2017 T-2.7 spine, -2.6 femoral neck, -0.7 L hip Assessment & Plan (04/11/2021 1:15 PM [employer]): Last DEXA was 11/26/2017 showing T-2.7 spine, -2.6 femoral neck. First reclast was administered in May 2020. She has not had a repeat DEXA since 2018. Will have her schedule ena with plans for next infusion May 2021. You need 1200mg calcium daily between supplements and food (preferably in food). Every cup of milk and ounce of cheese contains 200mg calcium and a cup of yogurt or most nut milks may contain 300mg calcium. Most multivitamins contain up to 500mg calcium and supplements may contain from 200mg to 500mg calcium. Pay attention to elemental calcium on the label and to the number of pills a serving represents. Try not to take more than 500mg elemental calcium in supplements at one time and drink with full 16 ounces of water to prevent kidney stones and stress on the heart. Walking at least 3 times a week for 30 minutes helps with bone density health in addition to the heart and brain benefits. Assessment & Plan (06/18/2019 7:19 PM CDT): Reviewed again recommendation that patient receive bisphosphonate therapy. 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 We discussed again risks and benefits and explained that the balance tips in favor of benefits. She would like to consider IV Reclast (once yearly) to avoid the difficulties of the oral regimen. She will again review information on bisphosphonate therapy and let us know her decision. Bisphosphonate Therapy Bisphosphonates are a group of medicines used to treat bone problems, such as thin or fragile bones. These medications are given to patients with abnormal bone density scans or to patients with a history of abnormal bone fractures in the hip, arm, wrist, or spine. The medications help prevent future bone fractures. They are commonly prescribed after calcium and vitamin D have failed to keep the bones strong. They are commonly used to treat bone disorders such as osteopenia, osteoporosis, Paget's disease, and metastatic bone disease. The family of Bisphosphonates includes: Oral: Alendronate (Fosamax), Risedronate (Actonel), and Ibandronate (Boniva). IV: Pamidronate, and Zoledronic acid (Reclast/Zometa). The bone cells in our bodies are constantly being slowly removed and replaced with new bone cells. This happens throughout our entire life. Osteoclasts are cells in our bodies that remove old bone and the osteoblast cells replace it with new bone. Bisphosphonates work by stopping the removal of old bone osteoclast activity. As we age and in certain diseases, the bone is actually being removed or damaged faster than your body is able to replace it. This leaves the bone thin/weak and much more likely to fracture with a significant impact or fall. Bisphosphonate medications damage/kill the osteoclasts and stop removal of old bone to try and preserve your bone strength. How to Take It Alendronate, Risedronate and Ibandronate are oral medications given either daily, weekly, or monthly depending on your other medical issues and the disease being treated. Typically, Alendronate is given 70mg by mouth once a week and Risedronate is given by mouth 35mg weekly or 150mg monthly. Ibandronate is given orally 150 mg once a month. The dose may vary depending on the disease being treated. These medications have to be taken first thing in the morning on an empty stomach with six - eight ounces of water. Do not take it with other beverages. You must remain upright (sitting or standing - no lying down) for 30 minutes after taking the medication. Do not take any additional medications, beverages, or food for 45 - 60 minutes after taking the medication. Discontinue after five - seven years if the fracture risk is low. Zolendronic acid is given through an IV at your doctor s office. The dose is 5mg given once a year, discontinuing after three - five years if your fracture risk is low. Calcium and vitamin D are commonly recommended to be taken with these medications. Side Effects Side effects to oral bisphosphonates include: muscle cramps/pain, pain with swallowing, heartburn, abdominal pain, nausea, headache, and/or rash. There is a rare risk of developing jaw or tooth pain, called osteonecrosis of the jaw. It is typically associated with trauma to the jaw (tooth extraction), history of malignancy and/or infections while on bisphosphonate therapy. It is recommended you have a good dental exam prior to starting these medications. Notify your doctor is you develop side effects to the medications. Side effects to Zoledronic acid include low blood pressure, dizziness, fatigue, headaches, muscle pain, weakness, GI symptoms (nausea and constipation), fever, and/or rash. These side effects may last a few days to a week after your infusion. There is a rare risk of developing jaw or tooth pain, called osteonecrosis of the jaw. It is typically associated with trauma to the jaw (tooth extraction), history of malignancy, and/or infections while on bisphosphonate therapy. It is recommended you have a good dental exam prior to starting these medications. Notify your doctor if you develop side effects to the medications. Abnormal fractures of the femur (thigh bone) have been associated with bisphosphonate therapy. This typically presents as thigh pain. Tell Your Doctor Bisphosphonate medications stay in your body for long periods of time even after stopping the medication. Discontinue therapy with bisphosphonates after three - five years of use if your fracture risk is low. Continue to follow up with your doctor for monitoring and repeat bone density scans about every two years. Prolonged use of bisphosphonates increases the risk of stress fractures in your thigh/hip. Tell your doctor if you develop any new pain in the thighs. You should not take this medication if you have kidney problems, difficulty swallowing, history of heartburn, low calcium levels, inability to stand or sit upright for at least 30 minutes. Do not take these medications if you are , , or may become . Remembering to take these medications regularly and as directed will increase your benefits from the medications. You can just stop the medication at any time, but please inform your doctor if you do. Assessment & Plan (01/26/2019 11:29 AM [employer]ER): Update 25 [place] Vitamin D. DEXA from [facility] still not received. Will request again. Assessment & Plan (08/04/2018 2:22 PM CDT): Will work on obtaining bone density report from [facility]; [place]. Assessment & Plan (10/28/2017 9:44 PM CDT): Images from the original note were not included. Schedule update DEXA as previously discussed. Assessment & Plan (06/30/2017 9:49 AM CDT): Update DEXA scheduled per [employer]. Advised patient to have copy sent to our office. Urticaria 08/29/2011 Overview (05/22/2016): Urticaria Depression 08/29/2011 Overview (05/22/2016): Depression Never smoked tobacco 06/07/2010 Overview (05/30/2017): Description: 06/07/10 confirmed--03/18/11 CONFIRMED Idiopathic urticaria 04/19/2010 Resolved Problems Problem Noted Date Diagnosed Date Resolved Date Drug indicated 06/10/2013 06/30/2017 Overview (05/24/2016): High risk medication use Urticaria, unspecified 08/02/201006/30 Encounters Date Type Department Care Team Description 10/11/2024 9:20 AM CDT - 10/11/2024 11:59 PM CDT Hospital Encounter [facility] [place] [facility] ([facility]) [address] [place] [address] Yumiko Shaffer MD Arrived Discharge Disposition: Discharge to home or self care 10/11/2024 9:15 AM CDT Lab [facility] Advanced Medicine ([facility]) [address] [place] [phone] High risk medication use 10/11/2024 8:20 AM CDT [facility] [address] [place] [address] 5th [place] [address] Yumiko Shaffer MD Seropositive rheumatoid arthritis of multiple sites (HCC) (Primary Dx); Primary osteoarthritis involving multiple joints; High risk medication use; Other osteoporosis without current pathological fracture 10/11/2024 Results [facility] [address] [place] [address] 5th [place] [address] Yumiko Shaffer MD XR Foot Left 3 or More Views 10/01/2024 9:51 PM CDT - 10/02/2024 12:25 AM CDT Emergency [facility] Emergency Department [address] [place] [address] Ervin Morin MD Watson, Brendan Matthew, MD PhD Fever, unspecified fever cause (Primary Dx); Acute cystitis without hematuria; Pyelonephritis Discharge Disposition: Discharge to home or self care 08/23/2024 Telephone [facility] Medicine Rheumatology [address] [facility] 5th [place] [address] [place] [address] Micki Romeor CMA from Last 3 Months Immunizations Immunization Administration Dates Next Due Influenza, Quadrivalent, Hig h Dose, Preservative Free, Intrr 11/18/2022,11/24/2020,12/01/2019 Influenza, Quadrivalent, Spl it, Preservative Free, Intramuscular 10/28/2016 Influenza, Trivalent, High D ose, Split, Preservative Free, Intramuscular 01/26/2019 Influenza, Trivalent, IM (MDV) 08/28/2010 Influenza, Trivalent, Split, Preservative Free, Intradermal 12/09/2014,02/04/2013,12/05/2011 Pfizer SARS-CoV-2 Monovalent Vaccination (12+ Yrs) PURPLE 12/18/2020,05/02/2020,04/11/2020 Pneumococcal Conjugate PCV 13 10/28/2017 Pneumococcal Polysaccharide PPV23 11/04/2013,01/2008 Tdap 11/04/2013 Surgical History Surgery Date Site/Laterality Comments DENTAL SURGERY 08/17/2017 - 09/16/2017 tooth pulled OTHER SURGICAL HISTORY 10/19/2019 - 11/17/2019 kidney stone stent placement TONSILLECTOMY HYSTERECTOMY BREAST BIOPSY HERNIA REPAIR 02/17/2021 - 03/19/2021 Medical History Medical History Date Comments PONV (postoperative nausea and vomiting) Delayed emergence from general anesthesia mild - no prolonged stay or ICU admission GERD (gastroesophageal reflux disease) Family History Medical History Relation Name Comments Anesthesia problems Daughter PONV Rheum arthritis Maternal Grandfather Anesthesia problems Mother PONV Relation Name Status Comments Daughter Maternal Grandfather Mother Social History Tobacco Use Types Packs/Day Years [...] on file Legal Sex Female 5:33 PM [employer] Gender Identity Not on file Sexual Orientation Not on file Obstetrics History Last Filed Vital Signs Vital Sign Reading Time Taken Comments Blood Pressure 145/81 10/11/2024 8:25 AM CDT Pulse 78 10/11/2024 8:25 AM CDT Temperature 36.6 C (97.8 F) 10/11/2024 8:25 AM CDT Respiratory Rate 16 10/02/2024 12:20 AM CDT Oxygen Saturation 100% 10/02/2024 12:20 AM CDT Inhaled Oxygen Concentration - - Weight 51.7 kg (114 lb) 10/11/2024 8:25 AM CDT Height 152.4 cm (5') 10/11/2024 8:25 AM CDT Body Mass Index 22.26 10/11/2024 8:25 AM CDT Plan of Treatment Health Maintenance Due Date Last Done Comments Breast Cancer Screening-Mammogram 1950 Colon Cancer Screening-Colonoscopy 1950 Osteoporosis Screening-Bone Density Scan 1950 Zoster Vaccine (1 of 2) 04/23/1971 Well Visit 65+ 2017 Depression Screening 08/05/2019 08/04/2018 Fall Risk Assessment 03/10/2022 03/10/2021, 08/05/19 19 Pneumococcal vaccine 65+ (4 of 4 - PCV20 or PCV21) 10/28/2022 10/28/2017, 11/04/2013, 12/30/2007 Covid-19 Vaccine (4 - 2023-2 5 season) 2023 12/18/2020, 05/02/2020, 04/11/2020 DTaP/Tdap/Td Vaccine (2 - Td or Tdap) 11/05/2023 11/04/2013, 12/01/2007 Influenza Vaccine (#1) 2024 3, 11/24/2020, 12/01/2019, Additional history exists Hepatitis B Screening Completed 11/19/2021 Hepatitis C Screening Completed 11/19/2021 Medical Devices Implanted Type 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 Clarice marcos Procedures Procedure Name Priority Date/Time Associated Diagnosis [...] Seropositive rheumatoid arthritis of multiple sites (HCC) URINALYSIS, MICROSCOPIC ONLY STAT 10/01/2024 11:55 PM CDT URINE CULTURE STAT 10/01/2024 11:55 PM CDT URINALYSIS AND REFLEX TO MICROSCOPIC AND CULTURE STAT 10/01/2024 11:55 PM CDT XR CHEST 1 VIEW ED 10/01/2024 10:57 PM CDT RESPIRATORY PATHOGEN PANEL Timed 10/01/2024 10:00 PM CDT INFLUENZA A/B, RSV, AND COVID-19 PCR STAT 10/01/2024 10:00 PM CDT EGFR STAT 10/01/2024 9:50 PM CDT DIFFERENTIAL AUTO STAT 10/01/2024 9:5 0 PM CDT CBC WITH AUTO DIFFERENTIAL STAT 10/01/2024 9:50 PM CDT BASIC METABOLIC PANEL STAT 10/01/2024 9:50 PM CDT HEPATITIS C ANTIBODY Routine 11/19/2021 2:35 PM CDT Immunosuppression from Last 3 Months or Most Recently Relevant to Health Maintenance Results * XR Foot Right 3 or More [...] signed by: Bert Johnson M.D. us Yumiko hSaffer MD IMG XR PROCEDURES Final Resu lt * XR Foot Left 3 or More [...] IMG XR PROCEDURES Final Resu lt * (ABNORMAL) Urinalysis reflex to microscopic and culture Urine (10/01/2024 11:55 PM CDT) Color, ur Straw Yellow Clarity, ur Clear Clear [facility] Specific gravity, ur 1.018 1.003 - 1.030 [facility] pH, urine 5.5 [facility] Comment: Interpretive Data U rine pH is affected by diet, medications, systemic acid-base disturbances, and renal tubular function. pH may affect urinary stone formation. For example, urine pH below 6.0 may help reduce the tendency for calcium phosphate stones and pH greater than 6.0 may reduce the tendency for uric acid stone formation. Source: [facility] Current Interpretive Data was last revised on 2017 Protein, ur ql Trace Negative [facility] Glucose, ur ql Negative Negative [facility] Ketones, ur Negative Negative [facility] Bilirubin, ur Negative Negative [facility] Blood, ur Trace(A) Negative [facility] Urobilinogen, ur <2.0 <2.0 mg/dL [facility] Nitrite, ur Negative Negative [facility] Leukocyte esterase, ur 4+(A) Negative [facility] UA reflex comment Reflex to microscopic UA will be performed. [facility] Urine 10/01/2024 11:5 5 PM CDT 10/01/2024 11:59 PM CDT us Ervin Morin MD LAB MICROBIOLOGY - GENERAL O RDERABLES Final Result WIL CRUM [address] [employer] [employer] [place], [place] [phone] * (ABNORMAL) Urinalysis, microscopic only (10/01/2024 11:55 PM CDT) WBC, ur 21-50(A) 0 - 5 /HPF RBC, ur 0-2 0 - 2 /HPF [facility] Epithelial cells, squamous, ur 1-5 0 - 5 /HPF [facility] Bacteria, ur Trace(A) [facility] Mucous, ur Present(A) [facility] Hyaline casts, ur 1-5 0 - 10 /LPF [facility] Culture Reflex Comment Reflex to urine culture will be performed. WIL [facility] Urine 10/01/2024 11:5 5 PM CDT 10/01/2024 11:59 PM CDT Ervin Morin MD LAB URINE ORDERABLES Final R esult Performing Organization Address [facility] de Phone Number WIL CHEUNGCH [address] [employer] [facility] [address] [place], [place] [phone] * (ABNORMAL) Urine culture Urine (10/01/2024 11:55 PM CDT) Report Final Report: Growth indicates contamination with mixed bacterial maryan. (.) Comment:Testing performed by : [facility], [address] [place] [address], [place]., [address] Organism GROWTH INDICATES CONTAMINATION WITH MIXED MARYAN. WIL CASTILLOW Urine 10/01/2024 11:5 5 PM CDT 10/02/2024 2:38 AM CDT Narrative WIL CHONGWCH - 10/03/2024 7:58 AM CDT Urine culture reflexed based upon urinalysis results. us Ervin Morin MD LAB MICROBIOLOGY - GENERAL O RDERABLES Final Result Performing Organization Address [facility] Co de Phone Number WIL CHEUNGCH [address] [employer] [facility] [address] [place], [place] [id number] [phone] * XR Chest 1 Vw Portable (10/01/2024 10:57 PM CDT) Anatomical Region Laterality Modality Body, Chest N/A Computed Radiogr aphy 10/02/2024 9:42 AM CDT Impressions 10/02/2024 9:42 AM CDT Minimal left lower lobe atelectasis. Electronically signed by: Tino Mclain M.D. Narrative 10/02/2024 9:42 AM CDT EXAMINATION: 1 view chest radiograph FINDINGS: There is minimal left lower lobe atelectasis. There is no pleural effusion or pneumothorax. Heart size and pulmonary vascularity are normal. Procedure Note Tino Mclain MD - 10/02/2024 EXAMINATION: 1 view chest radiograph FINDINGS: There is minimal left lower lobe atelectasis. There is no pleural effusion or pneumothorax. Heart size and pulmonary vascularity are normal. IMPRESSION: Minimal left lower lobe atelectasis. Electronically signed by: Tino Mclain M.D. Ervin Morin MD IMG XR PROCEDURES Final Resu lt * Influenza A/B, RSV, and COVID-19 PCR Nasopharyngeal (10/01/2024 10:00 PM CDT) COVID-19 RNA Negative Negative Influenza A RNA Negative Negative [facility] Influenza B RNA Negative Negative [facility] RSV RNA Negative Negative WIL CHONGW Comment: Testing performed by [facility]. This test is performed using the [employer] Xpert Xpress CoV-2/Flu/RSV plus assay. This is a multiplex, real-time reverse transcriptase PCR assay intended for the qualitative detection of nucleic acid from SARS-CoV-2, influenza A, influenza B, and respiratory syncytial virus. This assay has been cleared by the [place] Food and Drug administration. The performance characteristics have been verified by the [facility]. Results must be considered in the clinical context, and a negative result does not rule out infection. Interpretive Data last revised 2023 Nasopharyngeal 10/01/2024 10 :00 PM CDT 10/01/2024 10:03 PM CDT Narrative CEREWA CHEUNGCH - 10/01/2024 10:42 PM CDT Is the Patient experiencing symptoms consistent with COVID?->Yes Ervin Morin MD LAB MICROBIOLOGY - GENERAL O RDERABLES Final Result Performing Organization Address City/State/[facility] Co mi Phone Number WIL CRUM [address] [facility] Department [place] [address] * Respiratory pathogen panel Nasopharyngeal (10/01/2024 10:00 PM CDT) Influenza A RNA Not Detected Not Detected [facility] Comment:Testing performed by : [facility], [address] [place] [address]., [address] Influenza B RNA Not Detected Not Detected WIL CRUM Comment:Testing performed by : [facility], [address] [place] [address]., [address] RSV RNA Not Detected Not Detected WIL CRUM Comment:Testing performed by : [facility], [address] [place] [address]., [address] COVID-19 RNA Not Detected Not Detected WIL CRUM Comment:Testing performed by : [facility], [address] [place] [address]., [address] Coronavirus 229E RNA Not Detected Not Detected WIL CRUM Comment:Testing performed by : [facility], [address] [place] [address]., [address] Coronavirus HKU1 RNA Not Detected Not Detected WIL CRUM Comment:Testing performed by : [facility], [address] [place] [address]., [address] Coronavirus NL63 RNA Not Detected Not Detected WIL CRUM Comment:Testing performed by : [facility], [address] [place] [address]., [address] Coronavirus OC43 RNA Not Detected Not Detected WIL CRUM Comment:Testing performed by : [facility], [address] [place] [address]., [address] Adenovirus DNA Not Detected Not Detected [facility] Comment:Testing performed by : [facility], [address] [place] [address]., [address] Metapneumovirus RNA Not Detected Not Detected [facility] Comment:Testing performed by : [facility], [address] [place] [address]., [address] Rhinovirus/Enterov irus RNA Not Detected Not Detected [facility] Comment:Testing performed by : [facility], [address] [place] [address]., [address] Parainfluenza 1 RNA Not Detected Not Detected [facility] Comment:Testing performed by : [facility], [address] [place] [address]., [address] Parainfluenza 2 RNA Not Detected Not Detected [facility] Comment:Testing performed by : [facility], [address] [place] [address]., [address] Parainfluenza 3 RNA Not Detected Not Detected [facility] Comment:Testing performed by : [facility], [address] [place] [address]., [address] Parainfluenza 4 RNA Not Detected Not Detected [facility] Comment:Testing performed by : [facility], [address] [place] [address]., [address] B. pertussis DNA Not Detected Not Detected [facility] Comment:Testing performed by : [facility], [address] [place] [address]., [address] B. parapertussis DNA Not Detected Not Detected [facility] Comment:Testing performed by : [facility], [address] [place] [address]., [address] C. pneumoniae DNA Not Detected Not Detected [facility] Comment:Testing performed by : [facility], [address] [place] [address]., [address] M. pneumoniae DNA Not Detected Not Detected [facility] Comment: Interpretive Data The [employer] FilmArray Respiratory Panel (RP2.1) assay is a multiplexed real-time PCR based nucleic acid test capable of simultaneous qualitative detection and identification of multiple respiratory viral and bacterial nucleic acids, including SARS Coronavirus 2 (the causative agent of COVID-19). The following bacteria, viruses and virus subtypes can be identified using the FilmArray RP2.1 assay: Bordetella pertussis, Bordetella parapertussis, Chlamydia pneumoniae, Mycoplasma pneumoniae, Adenovirus, SARS Coronavirus 2, seasonal coronaviruses (Coronavirus HKU1, Coronavirus NL63, Coronavirus 229E, and Coronavirus OC43), Influenza A, Influenza A subtype H1, Influenza A subtype H3, Influenza A subtype 2009 H1, Influenza B, Metapneumovirus, Parainfluenza 1, Parainfluenza 2, Parainfluenza 3, Parainfluenza 4, RSV, Rhinovirus/Enterovirus. Due to the genetic similarity between human Rhinovirus and Enterovirus, the FilmArray RP2.1 assay cannot reliably differentiate them. Coronavirus OC43 may cross-react with some isolates of Coronavirus HKU1. A dual positive result may be due to cross-reactivity or may indicate a co- infection. The detection and identification of specific viral and bacterial nucleic acids from individuals exhibiting signs and symptoms of a respiratory infection aids in the diagnosis of respiratory infection if used in conjunction with other clinical and epidemiological information. The results of this test should not be used as the sole basis for diagnosis, treatment, or other management decisions. Negative results in the setting of a respiratory illness may be due to infection with pathogens that are not detected by this test. Positive results do not rule out infection/co-infection with other organisms. The agent(s) detected by the FilmArray RP2.1 may not be the definite cause of disease. Additional testing (lab, imaging, etc.) may be necessary when evaluating a patient with possible respiratory tract infection. The FilmArray RP2.1 assay has FDA clearance for testing of [employer] ADMINISTRATOR swabs. The performance characteristics of this assay have been determined by [facility]. Current interpretive data was last revised on 2020. Testing performed by: [facility], [facility] [facility], [place]., [address] Nasopharyngeal 10/01/2024 10 :00 PM CDT 10/02/2024 2:38 AM CDT Ferny Avalos MD PhD LAB MICROBIOLOGY - GENERAL ORDERABLES Final Result Performing Organization Address [facility] de Phone Number WIL CHONGWCH [address] [facility] [place] [address] MBC * eGFR (10/01/2024 9:50 PM CDT) eGFR 68 >=60 mL/min/1. 73 m2 Comment: Interpretive Data Reference Interval Normal >/= 90 mL/min/1.73m2 Mildly decreased* 60 - 89 mL/min/1.73m2 Mildly to moderately decreased 45 - 59 mL/min/1.73m2 Moderately to severely decreased 30 - 44 mL/min/1.73m2 Severely decreased 15 - 29 mL/min/1.73m2 Kidney Failure < 15 mL/min/1.73m2 *Relative to young adult level Estimated glomerular filtration rate is determined by the 2020 CKD-EPI equation recommended by the National Kidney Foundation (A Unifying Approach to GFR Estimation: Recommendations of the NKF-ASK Task Force on Reassessing the Inclusion of Race in Diagnosing Kidney Disease, JASN 2020). The CKD-EPI equation should not be used for patients with unstable renal function and has not been validated in children and those over 70. Current interpretive data was last reviewed 2020. Blood 10/01/2024 9:50 PM CDT 10/01/2024 9:55 PM CDT us Ervin Morin MD LAB BLOOD ORDERABLES Final R esult Performing Organization Address City/[facility] Co de Phone Number WIL CHONGWCH [address] [facility]. [place] [address] * Differential, auto (10/01/2024 9:50 PM CDT) Neutrophil abs 4.22 1.50 - 6.50 K/cumm Imm gran abs 0.04 0.00 - 0.10 K/cumm WIL CHONGW Lymphocyte abs 0.86 0.80 - 3.30 K/cumm [facility] Monocyte abs 0.76 0.20 - 0.80 K/cumm [facility] Eosinophil abs 0.07 0.00 - 0.50 K/cumm [facility]IL [facility] Basophil abs 0.04 0.00 - 0.10 K/cumm [facility]IL [facility] Neutrophil pct 70.3 % [facility]IL [facility] Comment: Interpretive Data Percent cell count reference ranges are not reported, since discordance with absolute values may lead to misinterpretation of CBC data. Current Interpretive Data was last revised on 2017. Imm gran pct 0.7 % WIL [facility] Comment: Interpretive Data Percent cell count reference ranges are not reported, since discordance with absolute values may lead to misinterpretation of CBC data. Current Interpretive Data was last revised on 2017. Lymphocyte pct 14.4 % [facility] Comment: Interpretive Data Percent cell count reference ranges are not reported, since discordance with absolute values may lead to misinterpretation of CBC data. Current Interpretive Data was last revised on 2017. Monocyte pct 12.7 % WIL [facility] Comment: Interpretive Data Percent cell count reference ranges are not reported, since discordance with absolute values may lead to misinterpretation of CBC data. Current Interpretive Data was last revised on 2017. Eosinophil pct 1.2 % WIL [facility] Comment: Interpretive Data Percent cell count reference ranges are not reported, since discordance with absolute values may lead to misinterpretation of CBC data. Current Interpretive Data was last revised on 2017. Basophil pct 0.7 % WIL [facility] Comment: Interpretive Data Percent cell count reference ranges are not reported, since discordance with absolute values may lead to misinterpretation of CBC data. Current Interpretive Data was last revised on 2017. Blood 10/01/2024 9:50 PM CDT 10/01/2024 9:55 PM CDT us Ervin Morin MD LAB BLOOD ORDERABLES Final R esult WIL CHONGCH [address] [facility] [place] [address] * (ABNORMAL) CBC with auto differential (10/01/2024 9:50 PM CDT) [facility] WBC 5.99 3.80 - 9.90 K/cumm Hgb 11.4(L) 11.9 - 15.5 g/dL [facility] Hct 35.0(L) 35.6 - 45.5 % [facility] Plt 294 150 - 400 K/cumm [facility] MPV 10.0 9.1 - 12.3 fL [facility] RBC 3.71(L) 3.90 - 5.20 M/cumm [facility] MCV 94.3 81.3 - 96.4 fL [facility] MCH 30.7 27.1 - 33.3 pg [facility] MCHC 32.6 32.3 - 35.7 g/dL [facility] RDW CV 13.2 11.1 - 14.9 % [facility] RDW SD 45.2 35.7 - 48.1 fL [facility] NRBC abs 0.00 0.00 - 0.01 K/cumm [facility] Blood 10/01/2024 9:50 PM CDT 10/01/2024 9:55 PM CDT us Ervin Morin MD LAB BLOOD ORDERABLES Final R esult [facility] [address] [facility] [place] [address] * (ABNORMAL) Basic metabolic panel (10/01/2024 9:50 PM CDT) Pathologist [facility] Sodium 136 135 - 145 mmol/L Potassium, pl 3.3 3.3 - 4.9 mmol/L [facility] Chloride 97 97 - 110 mmol/L [facility] CO2 23 22 - 32 mmol/L [facility] Anion gap 16(H) 2 - 15 mmol/L [facility] BUN 19 6 - 25 mg/dL [facility] Creatinine 0.90 0.60 - 1.10 mg/dL [facility] Glucose 116 70 - 199 mg/dL [facility] Comment: Interpretive Data Fasting glucose >/= 126 mg/dl is diagnostic for diabetes. Fasting is defined as no caloric intake for at least 8 hours. Fasting glucose between 100 mg/dl to 125 mg/dl is diagnostic of prediabetes. In a patient with classic symptoms of hyperglycemia or hyperglycemic crisis, a random glucose >/= 200 mg/dl is diagnostic for diabetes. In the absence of unequivocal hyperglycemia, results should be confirmed by repeat testing. The classification and Diagnosis of Diabetes Diabetes Care 2021; 46: S19-S40. Current interpretive data was last revised 2022. Calcium 9.3 8.5 - 10.3 mg/dL [facility] Blood 10/01/2024 9:50 PM CDT 10/01/2024 9:55 PM CDT us Ervin Morin MD LAB BLOOD ORDERABLES Final R esult [facility] [address] [facility] Department [place] [address] * Hepatitis C antibody (11/19/2021 2:35 PM CDT) Pathologist [facility] Hep C Ab Nonreactive Nonreactive [facility] Comment:Antibodies to HCV no t detected. Does NOT exclude the possibility of recent exposure to HCV. Blood 11/19/2021 2:35 PM CDT 11/19/2021 4:08 PM CDT us Yumiko Shaffer MD LAB MICROBIOLOGY - GENERAL O RDERABLES Edited Result - Final [facility] Department [place] [address] from Last 3 Months or Most Recently Relevant to Health Maintenance Insurance [employer] MEDICARE MEDICARE [employer] Member Subscriber Plan / Payer (Ef fective 2016-Present) Name:Ortega Estrada Relation to Subscriber:Not on file Name:TOI ESTRADAGRETCHEN Cornelius Date of :1950 (Home) Address: [place] [address] Payer ID:[id number] Group ID:[id number] N Type:COMMERCIAL Address: [address] [place], [place] [employer] Member Subscriber Plan / Payer (Ef fective 2016-Present) Name:ORTEGA ESTRADA Relation to Subscriber:Self Name:Ortega Estrada Payer ID:[id number] Group ID:[id number] N Type:COMMERCIAL Address: [facility] [address] [place], [place] MEDICARE [employer] Member Subscriber Plan / Payer (Ef fective 2016-Present) Name:ORTEGA ESTRADA Relation to Subscriber:Self Name:Ortega Estrada Payer ID:[id number] Group ID:[id number] Type:COMMERCIAL Address: [facility] [address] [place], [place] Advance Directives For more information, please contact: [phone] * Full Code (Latest Code Status on File) Date Activated Date Inactivated Comments 03/05/2021 8:14 AM 03/10/2021 4:43 PM Care Teams Philosophy Faculty Member Relationship Specialty [place] [address] [place] [address] [place] [address] PCP - General Internal Medicine 10/01/24 Yumiko Shaffer MD Consulting Physician Internal Medicine 02/19/23
--- OUTSIDE RECORDS SUMMARY | 2024-10-12 15:02 | XMS_ITS | Encounter Summary ---
Author Organization [facility] Address [address] [place] [address] Phone Care Team Providers Care Sports Agent Name Role Phone Beatriz Nuñez MD Primary Care Provider [phone] Yumiko Shaffer MD Unavailable [phone] Noris Limon NP Primary Care Provider [phone] Encounter Details Date Type Department Care Team (Late st Contact Info) Description 06/30/2017 Orders Only [facility] ProviderEddie MD [facility] [place] [address] Social History Tobacco Use Types Packs/Day Years Used Date Smoking Tobacco: Former Smokeless Tobacco: Never Comments:Smoking History Pac ks/day: 0.75 Packs Alcohol Use Standard Drinks/Week Comments Yes 0 (1 standard drink = 0.6 oz pur e alcohol) Comments Unknown Sex and Gender Information Value Date Recorded Sex Assigned at Not on file Legal Sex Female 5:33 PM ENERGY ASSISTANT Gender Identity Not on file Sexual Orientation Not on file documented as of this encounter Plan of Treatment Not on file documented as of this encounter Procedures Procedure Name Priority Date/Time Associated Diagnosis Comments DISCHARGE LABORATORY CUMULATIVE REPORT 06/30/2017 12:00 AM CDT documented in this encounter Results * DISCHARGE LABORATORY CUMULATIVE REPORT (06/30/2017 12:00 AM CDT) Narrative 06/30/2017 12:00 AM CDT Ordered by an unspecified provider. Historical Provider MD LAB BLOOD ORDERABLES Meredith l Result documented in this encounter Visit Diagnoses Not on filedocumented in this encounter Additional Health Concerns Infection Onset Date Last Indicated Resolved Time COVID: Suspected 03/05/2021 03/05/2021 03/05/2021 2:35 AM ENERGY ASSISTANT COVID: Suspected 10/01/2024 10/01/2024 10/01/2024 10:43 PM CDT COVID: Suspected 10/01/2024 10/01/2024 10/01/2024 11:34 PM CDT documented as of this encounter Care Teams Sports Agent Relationship Specialty Start Date End Date Beatriz Nuñez MD [address] [place] [address] PCP - General 05/20/16 09/30/24 Noris Limon NP [address] [place] [address] [place] [address] PCP - General Internal Medicine 10/01/24 Yumiko Shaffer MD [address] [place] [address] Consulting Physician Internal Medicine 02/19/23 documented as of this encounter
--- OUTSIDE RECORDS SUMMARY | 2024-10-12 15:02 | XMS_ITS | Clinical Summary ---
Author Organization [facility] Address [address] [place] [address] Care Team Providers Care Music Adapter Name Role Phone Beatriz Nuñez MD Primary Care Provider [phone] Source Comments [facility],non-owned Affiliates and Associated Physician Practices is amultiple site organization consisting of ambulatory clinics and hospital sitesin [place], [place], [place] and [place]. This disclosure is being madepursuant to the Care Everywhere program and may not contain all information available regarding this patient. Last updated 17.[facility] [employer] Social History Tobacco Use Types Packs/Day Years Used Date Smoking Tobacco: Never Assessed Comments Unknown Sex and Gender Information Value Date Recorded Sex Assigned at Not on file Legal Sex Female 10:10 AM CDT Gender Identity Not on file Sexual Orientation Not on file Plan of Treatment Health Maintenance Due Date Last Done Comments BONE DENSITY TESTING 1950 COLOGUARD (AGES 45-75) - COL ON CA SCREENING 1950 COLON MONITORING 1950 COLONOSCOPY - COLON CA SCREENING 1950 CT COLONOGRAPHY - COLON CA SCREENING 1950 Colorectal Cancer Screening 1950 FIT - COLON CA SCREENING 1950 FLEX SIG - COLON CA SCREENING 1950 LIPID TESTING 1950 MAMMOGRAM 1950 HEPATITIS C SCREENING 04/18/1970 DTAP/TDAP/TD VACCINES (1 - Tdap) 04/23/1971 PNEUMOCOCCAL VACCINE 50+ (1 of 1 - PCV) 2002 ZOSTER VACCINE (1 of 2) 2002 COVID-19 VACCINE ( - 2023-2 5 season) 2023 DEPRESSION SCREENING 02/18/2024 INFLUENZA VACCINE (#1) 2024 Respiratory Syncytial Virus (RSV) Vaccine Pt: or over 60 yrs (1 - 1-dose 75+ series) 04/23/2027 HEPATITIS B VACCINE Aged Out No longe r eligible based on patient's age to complete this topic HIB VACCINE Aged Out No longer eligi ble based on patient's age to complete this topic HPV VACCINE Aged Out No longer eligi ble based on patient's age to complete this topic MENINGOCOCCAL (Group B) VACC INE SHARED DECISION-MAKING Aged Out No longer eligibl e based on patient's age to complete this topic MENINGOCOCCAL GROUPS A/C/Y/W VACCINE Aged Out No longer eligible b ased on patient's age to complete this topic Insurance MEDICARE Care Teams Music Adapter Relationship Specialty Start Date End Date Beatriz Nuñez MD [address] [place] [address] PCP - General 05/01/18
== END 2024-10-12 14:58 | disposition home or self-care (01) ==
LOC: ANHFOHIMG 14:58
PROVIDERS: PCP Nurse Practitioner; Visit Provider Nurse Practitioner
DX: M81.0 Age-related osteoporosis without current pathological fracture (principal); M85.88 Other specified disorders of bone density and structure, other site; Z12.31 Encounter for screening mammogram for malignant neoplasm of breast
CPT/HCPCS: 77063; 77067; 77080

== ENCOUNTER 2024-12-07 13:58 | Emergency (ER) | payer MEDICARE, OTHER, SELFPAY ==
--- OUTSIDE RECORDS SUMMARY | 2009-04-14 08:15 | XMS_ITS | Continuity of Care Document ---
Author Organization [facility] Address [address] [place] [address] utive [facility] 150 [place] [address] Phone Care Team Providers Care Ob/Gyn Name Role Phone Sean Chapa Unavailable Unavailable Procedures Procedure Date Visual Field Examination(s) Office/outpatient Visit, Est Visual Field Examination(s) Office/outpatient Visit, Est Office/outpatient Visit, Est Visual Field Examination(s) Eye Exam, New Patient Advance Directives Directive Yes / No Effective Date File Name No Information Encounters Encounter Description Practice Location Reason(s) For Visit Diagnoses Date Provider Providers Copied on Encounter [facility], [address] [place], [place] [address]te [address], [place], [place], [address], tel:[phone] [facility] No Information 6-201 0 Eduard Estrada. [facility] [address], [address], [place]. tel:[phone] Referring Provider: Sean oleary [facility] [address] [address], [place], [address]. tel:[phone] Office/outpat ient Visit, Est [facility], [address] [place], [place] [address]te [address], [place], [place], [address], tel:[phone] [facility] No Information 8-200 9 Eduard Juanhil. [facility] [address], [facility], [place]. tel:[phone] [facility] Eye [facility], [address], [place], [place], [address], [place] tel:[phone] [facility] No Information 3-200 9 Eduard Sellersl. 2421 [facility] 102, [place], [place], Formerly [facility], [place]. tel:[phone] Referring Provider: Sean oleary, 2421 [facility] 102, [place], [place], Formerly [facility]. tel:[phone] Office/outpat ient Visit, [facility] Eye [facility], [address], [place], [place], [address], [place] tel:[phone] [facility] No Information 9-200 8 Krishnasamy Esan. [facility] 102, [place], [place], [facility]ly [facility], [place]. tel:[phone] Office/outpat ient Visit, [facility] Eye [facility], [address], [place], [place], [address], [place] tel:[phone] [facility] No Information 8-200 8 Kingsley Goldberg. [address] [facility] [place], [address], [place]. tel:[phone] [facility] Eye [facility], [address], [place], [place], [address], [place] tel:[phone] [facility] No Information 1-200 7 Kingsley Goldberg. [address] [facility], [facility] [place], [address], [place]. tel:[phone] Referring Provider: Yusuf Nieves, [address] [facility] [place], [address] . tel:[phone] [facility], [address], [place], [place], [address], [place] tel:[phone] [facility] No Information 7 Kingsley Goldberg. [address] [facility], [address], [place], [place], [address], [place]. tel:[phone] Referring Provider: David Head, [address] [place] [address], [address]. tel:[phone] Family History Family Member Type Diagnosis Age At Onset No Information Payers Payer name Insurance type Covered constitution party ID Authoriza tion(s) No Information Social [...]
--- NOTE | ~2024-12-07 | CT_ITS ---
CT abdomen pelvis w con INDICATION:poss stone vs pyelo . COMPARISON: None. TECHNIQUE: Axial images of the abdomen and pelvis were obtained following infusion of 100 mL Isovue 300. Dose optimization technique was utilized. FINDINGS: Large hiatal hernia is noted. The liver parenchyma is unremarkable. No intrahepatic mass or ductal dilatation is evident. The gallbladder is unremarkable. The pancreas and spleen are normal in appearance. The adrenal glands are symmetric in size. The kidneys demonstrate symmetric uptake of contrast. Bilateral renal cysts are noted measuring 1.3 cm. There is no solid mass. There is no hydronephrosis. Large hiatal hernia is noted. There is a duodenal diverticulum noted. The bladder and rectum are normal. There is focal indurated omental fat with partially enhancing wall in the left abdomen may represent panniculitis or omental infarct. This area measures 3.1 cm. There is no significant retroperitoneal lymphadenopathy. The aorta, visceral vessels and renal arteries demonstrate normal caliber and patency. The lower thoracic and lumbar vertebrae are in normal alignment. IMPRESSION: Focal indurated fat in the omentum with partially enhancing wall may represent panniculitis or omental infarct. Large hiatal hernia All CT scans at this facility are performed using low dose modulation techniques as appropriate to perform exam including the following: automated exposure control; use of iterative reconstruction technique; adjustment of the mA and/or kV according to patient size (this includes techniques or standardized protocols for targeted exams where dose is matched to indication/reason for exam). Reviewed, dictated and finalized at location S. IMPRESSION: Focal indurated fat in the omentum with partially enhancing wall may represent panniculitis or omental infarct. Large hiatal hernia All CT scans at this facility are performed using low dose modulation techniqu es as appropriate to perform exam including the following: automated exposure c ontrol; use of iterative reconstruction technique; adjustment of the mA and/or kV according to patient size (this includes techniques or standardized protocol s for targeted exams where dose is matched to indication/reason for exam).
[2024-12-07 14:03] VITALS: BP 128/61; PULSE 79; RESP 16; TEMP 36.9; O2SAT 99
[2024-12-07 14:41] LABS: Hematocrit 35.8 % (37.0-47.0); Hemoglobin 11.4 g/dL (12.0-15.0); Immature Granulocyte Percent A 0.5 % (0-0.5); Lymphocytes Absolute Auto 1.42 K/mm3 (0.9-3.2); Mean Corpuscular HGB Conc 31.8 g/dl (32-36); Mean Corpuscular Hemoglobin 31.0 pg (26-34); Mean Corpuscular Volume 97.3 fl (80-100); Nucleated Red Blood Cells Absolute Auto 0.000 K/mm3 (0.0-0.012); Nucleated Red Blood Cells Perc 0.0 % (0.0-0.2); Platelet Count Result 223 k/mm3 (150-375); Red Blood Count 3.68 M/mm3 (4.2-5.4); White Blood Count 19.0 K/mm3 (4.5-10.0)
[2024-12-07 14:55] LABS: Alanine Aminotransferase 15 U/L (6-35); Albumin Level 3.9 g/dL (3.5-5.1); Alkaline Phosphatase 64 U/L (38-126); Anion Gap 6 mmol/L (4-12); Aspartate Amino Transferase 31 U/L (14-36); Bilirubin,Total 1.0 mg/dL (0.2-1.3); Blood Urea Nitrogen 18 mg/dL (7-17); Calcium 8.5 mg/dL (8.4-10.2); Carbon Dioxide 28 mmol/L (22-30); Chloride 101 mmol/L (98-107); Estimated Glomerular Filt Rate > 60; Glucose 93 mg/dL (65-110); Lipase 27 U/L (23-300); Potassium 3.2 mmol/L (3.4-5.0); Sodium 135 mmol/L (137-145); Total Protein 7.2 g/dL (6.3-8.2)
[2024-12-07 15:06] VITALS: BP 124/66; PULSE 93; RESP 20; O2SAT 95
--- NOTE | 2024-12-07 15:49 | ED.ABDPAIN ---
HPI - Abdominal Pain General Chief Complaint: Abdominal Pain Stated Complaint: abd pain Time Seen by Provider: 12/07/24 15:05 Source: patient Mode of arrival: ambulatory Limitations: no limitations History of Present Illness HPI narrative: This is a 74-year-old female with history of kidney stones, hyperlipidemia who presents to the ED for lower abdominal pain. Patient states for the past day, she has been having lower abdominal pain radiating to her flanks. This morning, she also developed nausea but no vomiting. She has had no changes in urination or bowel movements. She states this feels similar to her prior kidney stones but it is bilateral it is time. Related Data Home Medications ?Medication ?Instructions ?Recorded ?Confirmed ?Last Taken ?Type hydroxychloroquine 200 mg tablet mg PO 04/20/24 10/04/24 Unknown History Allergies Allergy/AdvReac Type Severity Reaction Status Date / Time erythromycin base Allergy Intermediate Nausea Verified 12/07/24 15:07 sulfamethizole Allergy Intermediate upset Verified 12/07/24 15:07 stomach adalimumab AdvReac Intermediate HIVES Verified 12/07/24 15:07 Review of Systems Review of Systems: Gen.: Denies fevers or chills Eyes: Denies eye pain or visual change ENT: Denies congestion Respiratory: Denies shortness of breath or cough CV: Denies chest pain or palpitations GI: As per HPI denies burning, urgency, frequency or hematuria Musculoskeletal: Denies back pain or muscle pain Neuro: Denies numbness, tingling, weakness or focal weakness Skin: Denies rash Except as documented, all other systems reviewed and negative PMFSH Past Medical History Medical History GERD (gastroesophageal reflux disease) Rheumatoid arthritis Surgical History Surgical History History of repair of hiatal hernia (~03/08/21) H/O: hysterectomy Family History Family History Father Hypertension Family history of coronary artery disease, Onset Age: 82 Family history of malignant neoplasm of breast in first degree relative Patient's father is Social History Social History Years smoked: 35 Smoking status: Former smoker Second hand tobacco smoke exposure: No Smoking end date: 02/18/08 Alcohol intake: current Substance use: never Substance use type: does not use Lack of Transportation: No Lack of Food: Never True Current Housing: I Have Housing Concerned About Future Housing: No Difficulty Paying Gas/Electric Bills: No Difficulty Paying for Meds: No Currently Unemployed: No Education: High School Diploma/GED Difficulty w/ Childcare or Family Care: No Gender identity (if verbalized by the patient): Female Exam Narrative: APPEARANCE: No acute distress, nontoxic, resting in bed EYES: EOMI HEENT: Normocephalic, atraumatic, OMM RESPIRATORY: No respiratory distress Clear to auscultation bilaterally with no rhonchi wheezing or rales. CARDIOVASCULAR: Regular rate and rhythm without murmurs rubs or gallops. ABDOMINAL: Soft, mild lower abdominal tenderness to palpation, nondistended, no rebound or guarding. Mild CVA tenderness worse on the left MUSCULOSKELETAl: Moves all extremities. No clubbing, cyanosis or edema. NEURO: Awake and alert. Following commands, speech normal, no focal deficits SKIN:: Warm, dry. No rashes lesions or abrasions PSYCHIATRIC: Normal affect/mood, Course Vital Signs Vital signs: Vital Signs Temperature 98.5 F 12/07/24 14:03 Pulse Rate 79 12/07/24 14:03 Respiratory Rate 16 12/07/24 14:03 Blood Pressure 128/61 12/07/24 14:03 Pulse Oximetry 99 12/07/24 14:03 Oxygen Delivery Room Air 12/07/24 14:03 Temperature 98.5 F 12/07/24 14:03 Pulse Rate 68 12/07/24 17:55 Respiratory Rate 20 12/07/24 17:55 Blood Pressure 115/76 12/07/24 17:55 Pulse Oximetry 96 12/07/24 17:55 Oxygen Delivery Room Air 12/07/24 14:03 MDM - Abdominal Pain MDM Narrative Medical decision making narrative: 74-year-old female presenting for lower abdominal pain. On initial evaluation, patient was in mild distress, afebrile, hemodynamically stable. She did have tenderness palpation to the lower quadrants but no CVA tenderness bilaterally. Heart and lungs were clear. She had a leukocytosis at 19 with mild anemia at 11.4. Mild hypokalemia 3.2 with remaining CMP without significant abnormalities. Lipase within normal limits. UA clear. CT abdomen/pelvis was obtained and showed evidence of omental panniculitis. Patient did have improvement of her symptoms with morphine and Zofran. Discussed results and findings with patient. Also discuss that she was found have a hiatal hernia up but she had a prior hiatal hernia repair. She was advised to follow up with the performing surgeon to discuss potential operative intervention if needed. Patient and family were agreeable to this plan. She will be given a prescription for Zofran and oxycodone. She was educated on Tylenol and ibuprofen use for [id number] pain. Patient and family are agreeable to this plan. Given strict return precautions. Differential Diagnosis Differential diagnosis: Likely abdominal pain, acute appendicitis, calculus of kidney, constipation, diverticulitis, gastroenteritis and small bowel obstruction Medical Records Attestation: I reviewed the patient's medical records. Lab Data Attestation: I reviewed the patient's lab results. 12/07/24 14:34 12/07/24 14:34 Labs: Lab Results 12/07/24 12/07/24 Range/Units 14:34 17:06 WBC 19.0 H (4.5-10.0) K/mm3 RBC 3.68 L (4.2-5.4) M/mm3 Hgb 11.4 L (12.0-15.0) g/dL Hct 35.8 L (37.0-47.0) % MCV 97.3 (80-100) fl MCH 31.0 (26-34) pg MCHC 31.8 L (32-36) g/dl RDW 13.3 (11.5-14.5) % Plt Count 223 (150-375) k/mm3 MPV 10.7 H (7.4-10.4) fl Immature Gran % (Auto) 0.5 (0-0.5) % Neut % (Auto) 76.3 H (45.5-73.1) % Lymph % (Auto) 7.5 L (18.3-44.2) % [place] % (Auto) 14.3 H (2.6-8.5) % Eos % (Auto) 0.8 (0-4.4) % Baso % (Auto) 0.6 (0.2-1.2) % Lymph # (Auto) 1.42 (0.9-3.2) K/mm3 [place] # (Auto) 2.7 H (0.1-0.6) K/mm3 Eos # (Auto) 0.2 (0-0.3) K/mm3 Baso # (Auto) 0.1 (0.0-0.1) K/mm3 Abs Immat Gran (auto) 0.10 H (0.00-0.031) K/mm3 Absolute Neuts (auto) 14.5 H (1.3-6.7) K/mm3 Absolute Nucleated RBC 0.000 (0.0-0.012) K/mm3 Nucleated RBC % 0.0 (0.0-0.2) % Sodium 135 L (137-145) mmol/L Potassium 3.2 L (3.4-5.0) mmol/L Chloride 101 (98-107) mmol/L Carbon Dioxide 28 (22-30) mmol/L Anion Gap 6 (4-12) mmol/L BUN 18 H (7-17) mg/dL Creatinine 0.74 (0.7-1.0) mg/dL Estim Creat Clear Calc Not Reportable Estimated GFR > 60 (59 - ) Glucose 93 (65-110) mg/dL Calcium 8.5 (8.4-10.2) mg/dL Total Bilirubin 1.0 (0.2-1.3) mg/dL AST 31 (14-36) U/L ALT 15 (6-35) U/L Alkaline Phosphatase 64 (38-126) U/L Total Protein 7.2 (6.3-8.2) g/dL Albumin 3.9 (3.5-5.1) g/dL Lipase 27 (23-300) U/L Urine Color Yellow (Yellow) Urine Appearance Clear (Clear) Urine pH 6.5 (5.0-9.0) Ur Specific [place] 1.039 H (1.001-1.035) Urine Protein Negative (Negative) mg/dL Urine Glucose (UA) Negative (Negative) mg/dL Urine Ketones Trace H (Negative) mg/dL Ur Blood (Man) Negative (Negative) Urine Nitrate Negative (Negative) Urine Bilirubin Negative (Negative) Urine Urobilinogen 0.2 (<2.0) mg/dL Leukocyte Esterase Rfl Negative (Negative) JIM/UL Imaging Data Attestation: I personally reviewed and interpreted this imaging study as follows: Radiologist's impression: ITS Impressions Abdomen/Pelvis CT 12/07/24 17:13 IMPRESSION: Focal indurated fat in the omentum with partially enhancing wall may represent panniculitis or omental infarct. Large hiatal hernia All CT scans at this facility are performed using low dose modulation techniques as appropriate to perform exam including the following: automated exposure control; use of iterative reconstruction technique; adjustment of the mA and/or kV according to patient size (this includes techniques or standardized protocols for targeted exams where dose is matched to indication/reason for exam). Discharge Plan Discharge Clinical Impression: Panniculitis Patient Disposition: Home Condition: Stable Instructions: Antibiotic Form, Abdominal Pain (ED) Additional Instructions: Take Tylenol and ibuprofen for pain. Take Zofran and oxycodone as prescribed. Follow up with her PCP in the next week for re-evaluation. Call the surgeon that performed your hiatal hernia repair with a note that this was seen again on the scan. Return to ED for any new or worsening symptoms. Patient Language: Slovenian Prescriptions: New ondansetron 4 mg tablet,disintegrating 4 mg PO Q8H PRN (Reason: nausea and vomiting) Qty: 14 0RF oxycodone 5 mg capsule 5 mg PO Q8H PRN (Reason: pain) Qty: 10 0RF No Action ondansetron 8 mg tablet,disintegrating 8 mg PO Q8H PRN (Reason: nausea and vomiting) Qty: 30 0RF hydroxychloroquine 200 mg tablet PO oxybutynin chloride 5 mg tablet See Rx Instructions .ROUTE .COMPLEX Qty: 180 1RF Dose Instruction: TAKE 1 TABLET BY MOUTH TWICE DAILY Rx Instructions: TAKE 1 TABLET BY MOUTH TWICE DAILY paroxetine HCl 10 mg tablet See Rx Instructions .ROUTE .COMPLEX Qty: 90 1RF Dose Instruction: TAKE 1 TABLET BY MOUTH DAILY Rx Instructions: TAKE 1 TABLET BY MOUTH DAILY pantoprazole 40 mg tablet,delayed release (DR/EC) 40 mg PO DAILY Qty: 90 1RF alprazolam 0.25 mg tablet 0.25 mg PO QHS PRN (Reason: sleep) Qty: 90 0RF Follow-up/Referrals: Noris Limon, ALLIGATOR HUNTER-C [Primary Care Provider, Internal Medicine]
[2024-12-07] MEDS: ONDANSETRON INJ 4 MG/2 ML VIAL IV PUSH (15:51)
[2024-12-07] MEDS: SODIUM CHLORIDE 0.9% IV 1,000 ML 999 ML IV CONT (15:51)
[2024-12-07] MEDS: MORPHINE SULFATE (*CRX) 4 MG/ML INJ IV PUSH (15:51)
[2024-12-07 15:54] VITALS: BP 106/62; PULSE 72; RESP 20; O2SAT 99
[2024-12-07 17:12] LABS: Add Urine Microscopic? NO; Appearance Urine Clear (Clear); Glucose Urine UA Negative (Negative); Leukocyte Esterase Ur Negative LEU/UL (Negative); Nitrate Urine Negative (Negative); Specific Grav Ur 1.039 (1.001-1.035)
[2024-12-07 17:55] VITALS: BP 115/76; PULSE 68; RESP 20; O2SAT 96
--- OUTSIDE RECORDS SUMMARY | 2024-12-07 19:39 | XMS_ITS | Clinical Summary ---
Author Organization [facility] Care Team Providers Care Valet Runner Name Role Phone Unavailable Primary Care Provider [...] 2002 Zoster Immunization (1 of 2) 2002 Influenza Immunization (#1) 2024 SARS-COV-2 Immunization (3 - season) 2024 05/02/2020, 04/11/2020 Respiratory Syncytial Virus (RSV) Immunization (Adult) (1 [...]
--- OUTSIDE RECORDS SUMMARY | 2024-12-07 19:39 | XMS_ITS | Encounter Summary ---
Author Organization [facility] Address [address] [place] [address] Care Team Providers Care Freight Forwarder Name Role Phone Beatriz Nuñez MD Primary Care Provider [phone] Encounter Details Date Type Department Care Team (Late st Contact Info) Description 08/06/2019 Lab Requisition [facility] [address] [place] [address] Lew Cedeno MD [facility] [place] [address] Social History Tobacco Use Types [...] AM CDT) Case Report Dermatopathology Report Case: [id number] Authorizing Provider: Lew Cedeno MD Collected: 08/04/2019 12:00 AM Ordering Location: [facility] Received: 08/06/2019 06:36 AM Pathologist: [...] characteristic determined by the Dermatopathology Laboratory at [facility], directed by Dr. Wayne Vasques. These tests need not be, and therefore are not, approved by the [place] Food and Drug Administration. The tests are used for clinical purposes. Billing Codes Specimen Charges Stain Charges 97556 1 0 6:56 PM CDT DERMATOPATHOLOGY LABORATORY Embedded Images 0 6:56 PM CDT DERMATOPATHOLOGY LABORATORY Pathology/Cytolog y TISSUE SPECIMEN FROM SKIN / Unknown 08/04/2019 08/06/2019 6:36 AM CDT us Lew Cedeno MD LAB - PATHOLOGY/CYTOLOGY ORDERAB LES Final Result DERMATOPATHOLOGY LABORATORY [facility] - Department of Dermatology [facility] [place] [address], [facility] [phone] documented in this encounter Visit Diagnoses Not on filedocumented in this encounter Care Teams Freight Forwarder Relationship Specialty Start Date End Date Beatriz Nuñez MD [address] [place] [address] PCP - General 05/01/18 documented as of this encounter
--- OUTSIDE RECORDS SUMMARY | 2024-12-07 19:39 | XMS_ITS | Encounter Summary ---
Author Organization [facility] Address [address] [place] [address] Phone Care Team Providers Care Material Worker Name Role Phone Beatriz Nuñez MD Primary Care Provider [phone] Yumiko Shaffer MD Unavailable [phone] Noris Limon NP Primary Care Provider [phone] Encounter Details Date Type Department Care Team [...] on file Legal Sex Female 5:33 PM PERMIT TECHNICIAN Gender Identity Not on file Sexual Orientation [...] documented as of this encounter Care Teams Material Worker Relationship Specialty Start Date End Date Beatriz Nuñez MD [address] [place] [address] PCP - General 05/20/16 09/30/24 Noris Limon NP [address] [place] [address] [place] [address] PCP - General Internal Medicine 10/01/24 Yumiko Shaffer MD [address] [place] [address] Consulting Physician Internal Medicine 02/19/23 documented as of this encounter
--- OUTSIDE RECORDS SUMMARY | 2024-12-07 19:39 | XMS_ITS | Clinical Summary ---
Author Organization [facility] Address [address] [place] [address] Care Team Providers Care Field Sales Engineer Name Role Phone Beatriz Nuñez MD Primary Care Provider [phone] Source Comments [facility],non-owned Affiliates and Associated Physician Practices is amultiple site organization consisting of ambulatory clinics and hospital sitesin [place], [place], [place] and [place]. This disclosure is being madepursuant to the Care Everywhere program and may not contain all informatio navailable regarding this patient. Last updated 17.[facility] Social History Tobacco Use Types Packs/Day Years [...] 2002 ZOSTER VACCINE (1 of 2) 2002 DEPRESSION SCREENING 02/18/2024 COVID-19 VACCINE (1 - 2023-2 5 season) 2024 INFLUENZA VACCINE (#1) 2024 Respiratory Syncytial Virus [...] age to complete this topic [place] [id number] Care Teams Field Sales Engineer Relationship Specialty Start Date End Date Beatriz Nuñez MD [address] [place] [address] PCP - General 05/01/18
--- OUTSIDE RECORDS SUMMARY | 2024-12-07 19:39 | XMS_ITS | Encounter Summary ---
Author Organization [facility] Address [address] [place] [address] Phone Care Team Providers Care Newspaper Deliverer Name Role Phone Beatriz Nuñez MD Primary Care Provider [phone] Yumiko Shaffer MD Unavailable [phone] Noris Limon NP Primary Care Provider [phone] Encounter Details Date Type Department Care Team (Late st Contact Info) Description 06/30/2017 Orders Only [facility] ProviderEddie MD [facility] [place] [address] Social History Tobacco Use Types Packs/Day Years Used Date Smoking Tobacco: Former Smokeless Tobacco: Never Comments:Smoking History Pac ks/day: 0.75 Packs Alcohol Use Standard Drinks/Week Comments Yes 0 (1 standard drink = 0.6 oz pur e alcohol) Comments Unknown Sex and Gender Information Value Date Recorded Sex Assigned at Not on file Legal Sex Female 5:33 PM CALL CENTER MANAGER Gender Identity Not on file Sexual Orientation [...] COVID: Suspected 03/05/2021 03/05/2021 03/05/2021 2:35 AM CALL CENTER MANAGER COVID: Suspected 10/01/2024 10/01/2024 10/01/2024 10:43 PM CDT COVID: Suspected 10/01/2024 10/01/2024 10/01/2024 11:34 PM CDT documented as of this encounter Care Teams Newspaper Deliverer Relationship Specialty Start Date End Date Beatriz Nuñez MD [address] [place] [address] PCP - General 05/20/16 09/30/24 Noris Limon NP [address] [place] [address] [place] [address] PCP - General Internal Medicine 10/01/24 Yumiko Shaffer MD [address] [place] [address] Consulting Physician Internal Medicine 02/19/23 documented as of this encounter
--- OUTSIDE RECORDS SUMMARY | 2024-12-07 19:39 | XMS_ITS | Clinical Summary ---
Author Organization [facility] D Address [address] [place] [phone] Care Team Providers Care Mussel Farmer Name Role Phone Yumiko Shaffer MD Unavailable [phone] Noris Limon NP Primary Care Provider [phone] Allergies Active Allergy Reactions Criticality Noted Date [...] by mouth every morning 11/14/19 21 Active ALPRAZolam (XANAX) 0.25 mg tablet Take 1 tablet (0.25 mg total) by mouth daily as needed 01/19/20 24 Active ondansetron ODT (ZOFRAN-ODT) 8 mg disintegrating tablet DISSOLVE 1 TABLET ON THE TONGUE EVERY 8 HOURS NEEDED FOR NAUSEA OR VOMITING 10/05/19 25 Active hydroxychloroquine (PLAQUENIL) 200 mg tabletIndications: Seropositive rheumatoid arthritis of multiple sites (HCC),Primary osteoarthritis involving multiple joints TAKE 1 TABLET BY MOUTH TWICE DAILY 180 tablet 10/27/19 25 Active predniSONE (DELTASONE) 5 mg tabletIndications: Seropositive rheumatoid arthritis of multiple sites (HCC) Take 3 tablets (15 mg) by mouth daily for 7 days, THEN 2 tablets (10 mg) daily for 14 days, THEN 1 tablet (5 mg) daily for 7 days. 56 tablet 11/23/19 25 025 Active golimumab (Simponi) 50 mg/0.5 mL pen injectorIndication s:Rheumatoid Arthritis Inject 0.5 mL (50 mg total) under the skin every 28 (twenty-eig ht) days 1.5 mL 3 11/23/19 25 Active etanercept (ENBREL) 50 mg/mL (1 mL) pen injectorIndication s:Seropositive rheumatoid arthritis of multiple sites (HCC) Inject 1 mL (50 mg total) under the skin once a week 12 mL 1 10/12/19 25 025 Discontinued Active Problems Problem Noted Date Diagnosed Date RADHA (acute kidney injury) 03/07/2021 Assessment & Plan (03/08/2021 7:50 AM MEAT TRIMMER): Cr upon admission was 1.37 in the setting of dehydration 2/2 vomiting. - Cr downtrend to normal with IVF resuscitation and decompression of HH with NGT - continue mIVF Abdominal pain 03/05/2021 Hiatal hernia 03/05/2021 Assessment & Plan (03/08/2021 7:58 AM MEAT TRIMMER): Per CT scan: Large hiatus hernia with development of organoaxial gastric volvulus with likely associated gastric outlet obstruction secondary to the hernia and volvulus. No findings to suggest ischemia at this time. - NGT to LIWS - NPO except ice chips - mIVF - OR today for Lap HH repair - DVT PPX Hypokalemia 03/05/2021 Assessment & Plan (03/08/2021 7:50 AM MEAT TRIMMER): - monitor Osteoporosis 06/12/2020 Advice given about 2019 novel coronavirus by tel ephone 06/18/2019 Assessment & Plan (06/18/2019 7:16 PM CDT): The full impact of autoimmune disease and immunomodulatory medications on susceptibility and complications of coronavirus disease is not yet studied. Because we have lab animal technologist with this new virus we do not [...] this is a fast-moving issue and the [facility] is providing regular updates as the course and extent of the epidemic is monitored. You may keep up to date at the CDC website: www.coronavirus.gov You may also find more information relevant to your questions at the [employer] webpage: arthritis.org. Click on the Coronavirus banner. It is imperative that you adhere to the dutc-em-vowx orders issued for your community, especially in view of your potentially immunocompromised status. Feel free to reach out to us if you have additional questions after you review this information. You may review the current [employer] Covid-19 clinical guidance for Patients with Rheumatic Diseases if you copy and paste the link below into your web browser: [email or web address]/[email or web address]-Vqbonzqi-Uuzc curtis-P jgtpqtb-mwpf-Exjnchwiv-Diseases.pdf Encounter for long-term (cur rent) use of high-risk medication 10/28/2016 Assessment & Plan (04/10/2021 8:11 PM MEAT TRIMMER): Long-term use of high-risk medication requiring regular monitoring. Labs ordered, no s/s of med tox or infection. Encouraged to work with PCP to make sure all recommended cancer screens and vaccinations are complete. Avoid live-vaccines unless reviewed with carbon furnace operator helper first. HCQ eye exams every 6 months. [...] month. Assessment & Plan (01/26/2019 11:28 AM MEAT TRIMMER): Patient on immunosuppressive medications requiring periodic lab monitoring for drug safety. Update lab as per orders written. Assessment & Plan (08/04/2018 2:21 PM CDT): Patient on immunosuppressive medications requiring periodic lab monitoring for drug safety. Update lab as per orders written. Assessment & Plan (02/25/2018 12:12 PM MEAT TRIMMER): Patient on immunosuppressive medications requiring periodic lab [...] written. Assessment & Plan (02/26/2017 12:01 PM MEAT TRIMMER): Patient on immunosuppressive medications requiring periodic lab monitoring for drug safety. Update lab as per orders written. Assessment & Plan (10/28/2016 3:04 PM CDT): Patient on immunosuppressive medications requiring periodic lab monitoring for drug safety. Update lab as per orders written. BMI 22.0-22.9, adult 10/28/2016 Assessment & Plan (01/26/2019 11:28 AM MEAT TRIMMER): BMI satisfactory. A healthy diet and routine exercise regimen are frye to weight management. Assessment & Plan (08/04/2018 2:21 PM CDT): BMI satisfactory. A healthy diet and routine exercise regimen are frye to weight management. Assessment & Plan (02/25/2018 12:12 PM MEAT TRIMMER): Weight loss noted. Good work! BMI satisfactory. A healthy diet and routine exercise regimen are frye to weight management. Assessment & Plan (10/28/2017 5:36 PM CDT): BMI normal. Continue healthy diet and exercise regimen. Assessment & Plan (06/30/2017 9:49 AM CDT): BMI normal. Continue healthy diet and exercise regimen. Assessment & Plan (02/26/2017 12:00 PM MEAT TRIMMER): BMI normal. Continue healthy diet and exercise regimen. Rheumatoid arthritis involvi ng multiple sites with positive rheumatoid factor ([facility]) 11/04/2013 Overview (11/24/2020): Images from the original note were not included. 12/06-Rheum Hx: In 2000 developed pain in toes, neck and shoulders, hands and knees, Dx with RA, started on plaquenil, and prednisone, then switched methotrexate (elevated LFTs), remicade (was on until insurance switched her to octnxaylzu-0-5 yrs), then was on Humira (helped for years, but then broke out in urticaria and had to stop), then now has been on Orencia since, initially on SQ injection then infusion. Assessment & Plan (04/10/2021 8:12 PM MEAT TRIMMER): -Currently stable on Orencia 500 mg IV every 4 weeks, plaquenil 200 mg bid ttoday she has no active synovitis, primarily OA changes in hands. Continue plaquenil with eye exam every 6 mo. Assessment & Plan (03/05/2021 8:16 AM MEAT TRIMMER): Holding home dose of Plaquenil and prednisone [...] same. Assessment & Plan (01/26/2019 11:27 AM MEAT TRIMMER): RA clinically stable on Orencia regimen. No [...] prednisone. Assessment & Plan (02/25/2018 12:12 PM MEAT TRIMMER): RA with recent flare (Rapid3 6.7) associated [...] all medications you are currently taking, including inab-zvz-muhfrhs medications, supplements, and herbal therapies. Also, tell [...] Param Manuel MD and reviewed by the [employer] Committee on Communications and Marketing. This information is provided for general education only. Individuals should consult a qualified health care provider for professional medical advice, diagnosis and treatment of a medical or health condition. 2017 [employer] - See more at: https://www.rheumatology.org/I-Am-A/Patient-Caregiver/Treatments/Rituximab-Ritux dee dee-Wa bThera#sthash.[email or web address].dpuf Assessment & Plan (10/28/2017 9:43 PM CDT): [...] exhausted. Assessment & Plan (02/26/2017 12:01 PM MEAT TRIMMER): Well controlled on current med regimen. Continue [...] hip Assessment & Plan (04/11/2021 1:15 PM MEAT TRIMMER): Last DEXA was 11/26/2017 showing T-2.7 spine, [...] do. Assessment & Plan (01/26/2019 11:29 AM MEAT TRIMMER): Update 25 [place] Vitamin D. DEXA from [facility] still not received. Will request again. Assessment & Plan (08/04/2018 2:22 PM CDT): Will work on obtaining bone density report from [facility]; [place]. Assessment & Plan (10/28/2017 9:44 PM CDT): Images from the original note were not included. Schedule update DEXA as previously discussed. Assessment & Plan (06/30/2017 9:49 AM CDT): Update DEXA scheduled per Mat Gauger. Advised patient to have copy sent to our office. Urticaria 08/29/2011 Overview (05/22/2016): Urticaria Depression 08/29/2011 Overview (05/22/2016): Depression Never smoked tobacco 06/07/2010 Overview (05/30/2017): Description: 06/07/10 confirmed--03/18/11 CONFIRMED Idiopathic urticaria 04/19/2010 Resolved Problems Problem Noted Date Diagnosed Date Resolved Date Drug indicated 06/10/2013 06/30/2017 Overview (05/24/2016): High risk medication use Urticaria, unspecified 08/02/201006/30 Encounters Date Type Department Care Team Description 11/22/2024 10:40 AM CDT Office Visit [facility] [address] [place] [address] [place] [address] Yumiko Shaffer MD Seropositive rheumatoid arthritis of multiple sites (HCC) (Primary Dx); Primary osteoarthritis involving multiple joints; High risk medication use; Other osteoporosis without current pathological fracture 11/09/2024 Documentation [facility] [address] [place] [address] Pil[facility] Davila Eye Exam (10-22-24 morteza laurel OD ok for plaquenil) 10/14/2024 Telephone [facility] [address] [place] [address] Trey Bustamante RPh 10/11/2024 9:20 AM CDT - 10/11/2024 11:59 PM CDT Hospital Encounter [facility] [address] [place] [address] Yumiko Shaffer MD Discharge Disposition: Discharge to home or self care 10/11/2024 9:15 AM CDT Lab [facility] ([facility]) [address] [place] [phone] High risk medication use 10/11/2024 8:20 AM CDT Office [facility] [address] [place] [address] [place] [address] Yumiko Shaffer MD Seropositive rheumatoid arthritis of multiple sites (HCC) (Primary Dx); Primary osteoarthritis involving multiple joints; High risk medication use; Other osteoporosis without current pathological fracture 10/11/2024 Results Follow-[facility] [address] [place] [address] Yumiko Shaffer MD XR Foot Left 3 or More Views 10/01/2024 9:51 PM CDT - 10/02/2024 12:25 AM CDT Emergency [facility] Emergency Department [address] [place] [address] Ervin Morin MD Watson, Ferny Yadav MD PhD Fever, unspecified fever cause (Primary Dx); Acute cystitis without hematuria; Pyelonephritis Discharge Disposition: Discharge to home or self care from Last 3 Months Immunizations Immunization Administration [...] on file Legal Sex Female 5:33 PM MEAT TRIMMER Gender Identity Not on file Sexual Orientation Not on file Obstetrics History Last Filed Vital Signs Vital Sign Reading Time Taken Comments Blood Pressure 152/82 11/22/2024 11:08 AM CDT Pulse 67 11/22/2024 11:08 AM CDT Temperature 36.7 C (98.1 F) 11/22/2024 11:08 AM CDT Respiratory Rate 16 10/02/2024 12:20 AM CDT Oxygen Saturation 100% 10/02/2024 12:20 AM CDT Inhaled Oxygen Concentration - - Weight 49.9 kg (110 lb) 11/22/2024 11:08 AM CDT Height 152.4 cm (5') 11/22/2024 11:08 AM CDT Body Mass Index 21.48 11/22/2024 11:08 AM CDT Plan of Treatment Health Maintenance Due Date Last Done Comments Breast Cancer Screening-Mammogram 1950 Colon Cancer Screening-Colonoscopy 1950 Osteoporosis Screening-Bone Density Scan 1950 Zoster Vaccine (1 of 2) 04/23/1971 Well Visit 65+ 2017 Depression Screening 08/05/2019 08/04/2018 Fall Risk Assessment 03/10/2022 03/10/2021, 08/05/19 19 Pneumococcal vaccine 65+ (4 of 4 - PCV20 or PCV21) 10/28/2022 10/28/2017, 11/04/2013, 12/30/2007 DTaP/Tdap/Td Vaccine (2 - Td or Tdap) 11/05/2023 11/04/2013, 12/01/2007 Covid-19 Vaccine (4 - 2024-2 6 season) 2024 12/18/2020, 05/02/2020, 04/11/2020 Influenza Vaccine (#1) 2024 , 11/24/2020, 12/01/2019, Additional history exists Hepatitis B Screening Completed 11/19/2021 Hepatitis C Screening Completed 11/19/2021 Medical Devices Implanted Type Area Instructional Assistant Device Identifier Shelf Expiration Date Model / Serial / Lot [employer] [id number] Surgisis B[employer]ign 10x7cm 4 Sheet Freeze Dried Graft Soft Tissue - S00 - [id number] Implanted:Qty : 1 on 03/08/2021 by Marni Cleveland, Bryson Laurent MD at [facility] Mesh N/A: Other - see comments [employer] [id number] 12/04/2021 [id number] / 00 / Description:Hiatus per Dr. Clarice [...] Seropositive rheumatoid arthritis of multiple sites (HCC) T-SPOT.TB Routine 10/11/2024 9:10 AM CDT High risk medication use URINALYSIS, MICROSCOPIC ONLY STAT 10/01/2024 11:55 PM [...] IMG XR PROCEDURES Final Resu lt * T-SPOT.TB Blood (10/11/2024 9:10 AM CDT) [facility] T-SPOT.TB Negative SeeBelow Comment: Normal Value: Negative A negative test result does not exclude the possibility of exposure to or infection with Mycobacterium tuberculosis (M. tuberculosis). Patients with recent exposure to TB infected individuals exhibiting a negative T-SPOT.TB result should be considered for retesting within 6 weeks or if other relevant clinical symptoms indicate. Results from T-SPOT.TB testing must be used in conjunction with each individual's epidemiological history, current medical status, and results of other diagnostic evaluations. The T-SPOT.TB test is qualitative and results are reported as positive, borderline or negative, given that the test controls perform as expected. In line with the Centers for Disease Control and Prevention's 2010 recommendation to report quantitative measurements alongside the qualitative result, the laboratory provides spot counts for informational purposes only. The T-SPOT.TB test should not be interpreted as a quantitative test. T-SPOT.TB Panel A Spot Count 0 [facility] T-SPOT.TB Panel B Spot Count 0 [facility] T-SPOT.TB Negative Control Passed [facility] Positive Control Passed [facility] Comment: Test Performed at: [facility] [place] [address] [place] [phone] JILL BLACKMON,PHD Blood 10/11/2024 9:10 AM CDT 10/11/2024 9:34 AM CDT us Yumiko Shaffer MD LAB MICROBIOLOGY - GENERAL O RDERABLES Final Result Performing Organization Address [facility]/ZIP Co de Phone Number WIL CHONG One [facility] [place] [address] * (ABNORMAL) Urinalysis reflex to microscopic and [...] tendency for uric acid stone formation. Source: [facility] Current Interpretive Data was last revised [...] O RDERABLES Final Result Performing Organization Address [facility]/ZIP Co de Phone Number KEMIEWA CASTILLOWCH [address] [facility]. [place] [address] * (ABNORMAL) Urinalysis, microscopic only (10/01/2024 11:55 [...] Reflex to urine culture will be performed. [facility] Urine 10/01/2024 11:5 5 PM CDT 10/01/2024 11:59 PM CDT Ervin Morin MD LAB URINE ORDERABLES Final R esult Performing Organization Address [facility]/ZIP Co de Phone Number WIL CHONGWCH [address] [facility]. [facility] [place] [address] * (ABNORMAL) Urine culture Urine (10/01/2024 11:55 PM CDT) Report Final Report: Growth indicates contamination with mixed bacterial maryan. (.) Comment:Testing performed by : [facility], [address] [place] [address], [place]., [address] Organism GROWTH INDICATES CONTAMINATION WITH MIXED MARYAN. K[facility]INER BJW Urine 10/01/2024 11:5 5 PM CDT 10/02/2024 2:38 AM CDT Narrative [facility] - 10/03/2024 7:58 AM CDT Urine culture reflexed based upon urinalysis results. us Ervin Moirn MD LAB MICROBIOLOGY - GENERAL O RDERABLES Final Result Performing Organization Address City/[facility]/ZIP Co de Phone Number WIL CHONGWCH [address] [facility]. [facility] [place] [address] * XR Chest 1 Vw Portable (10/01/2024 [...] Negative Influenza A RNA Negative Negative [facility] Influenza B RNA Negative Negative [facility] RSV RNA Negative Negative [facility] Comment: Testing performed by [facility]. This test is performed using the [employer] Xpert Xpress CoV-2/Flu/RSV plus assay. This is a multiplex, real-time reverse transcriptase PCR assay intended for the qualitative detection of nucleic acid from SARS-CoV-2, influenza A, influenza B, and respiratory syncytial virus. This assay has been cleared by the [place] Food and Drug administration. The performance characteristics have been verified by the [facility]. Results must be considered in the clinical context, and a negative result does not rule out infection. Interpretive Data last revised 2023 Nasopharyngeal 10/01/2024 10 :00 PM CDT 10/01/2024 10:03 PM CDT Narrative [facility] - 10/01/2024 10:42 PM CDT Is the Patient experiencing symptoms consistent with COVID?->Yes Ervin Morin MD LAB MICROBIOLOGY - GENERAL O RDERABLES Final Result Performing Organization Address City/State/[facility] Phone Number WIL CRUM [address] [facility] [place] [address] * Respiratory pathogen panel Nasopharyngeal (10/01/2024 10:00 PM CDT) Pathologist [facility] Influenza A RNA Not Detected Not Detected [facility] Comment:Testing performed by : [facility], [address] [place] [address]., [address] Influenza B RNA Not Detected Not Detected WIL CRUM Comment:Testing performed by : [facility], [address] [place] [address]., [address] RSV RNA Not Detected Not Detected WIL CHEUNG Comment:Testing performed by : [facility], [address] [place] [address]., [address] COVID-19 RNA Not Detected Not Detected WIL CRUM Comment:Testing performed by : [facility], [address] [place] [address]., [address] Coronavirus 229E RNA Not Detected Not Detected WIL BJMalissa Comment:Testing performed by : [facility], [address] [place] [address]., [address] Coronavirus HKU1 RNA Not Detected Not Detected WIL BJW Comment:Testing performed by : [facility], [address] [place] [address]., [address] Coronavirus NL63 RNA Not Detected Not Detected WIL BJWCHRISTOPHER Comment:Testing performed by : [facility], [address] [place] [address]., [address] Coronavirus OC43 RNA Not Detected Not Detected WIL BJWCHRISTOPHER Comment:Testing performed by : [facility], [address] [place] [address]., [address] Adenovirus DNA Not Detected Not Detected [facility] Comment:Testing performed by : [facility], [address] [place] [address]., [address] Metapneumovirus RNA Not Detected Not Detected [facility] Comment:Testing performed by : [facility], [address] [place] [address]., [address] Rhinovirus/Enterov irus RNA Not Detected Not Detected [facility] Comment:Testing performed by : [facility], [address] [place] [address]., [address] Parainfluenza 1 RNA Not Detected Not Detected [facility] Comment:Testing performed by : [facility], [address] [place] [address]., [address] Parainfluenza 2 RNA Not Detected Not Detected [facility] Comment:Testing performed by : [facility], [address] [place] [address]., [address] Parainfluenza 3 RNA Not Detected Not Detected [facility] Comment:Testing performed by : [facility], [address] [place] [address]., [address] Parainfluenza 4 RNA Not Detected Not Detected [facility] Comment:Testing performed by : [facility], [address] [place] [address]., [address] B. pertussis DNA Not Detected Not Detected [facility] Comment:Testing performed by : [facility], [address] [place] [address]., [address] B. parapertussis DNA Not Detected Not Detected [facility] Comment:Testing performed by : [facility], [address] [place] [address]., [address] C. pneumoniae DNA Not Detected Not Detected [facility] Comment:Testing performed by : [facility], [address] [place] [address]., [address] M. pneumoniae DNA Not Detected Not Detected [facility] Comment: Interpretive Data The evocatal FilmArray Respiratory Panel (RP2.1) assay is a [...] assay has FDA clearance for testing of COMM[employer]NT swabs. The performance characteristics of this assay have been determined by [facility]. Current interpretive data was last revised on 2020. Testing performed by: [facility], [address] [place] [address], [place]., [address] Nasopharyngeal 10/01/2024 10 :00 PM CDT 10/02/2024 2:38 AM CDT Ferny Avalos MD PhD LAB MICROBIOLOGY - GENERAL ORDERABLES Final Result Performing Organization Address [facility] de Phone Number WIL CRUM [address] [facility] [place] [address] MBC * eGFR (10/01/2024 9:50 PM CDT) Pathologist [facility] eGFR 68 >=60 mL/min/1. 73 m2 Comment: [...] 9:50 PM CDT 10/01/2024 9:55 PM CDT Ervin Morin MD LAB BLOOD ORDERABLES Final R esult Performing Organization Address [facility] Co de Phone Number WIL BJWCH [address] [place] [address] * Differential, auto (10/01/2024 9:50 PM CDT) Neutrophil abs 4.22 1.50 - 6.50 K/cumm Imm gran abs 0.04 0.00 - 0.10 K/cumm [facility] Lymphocyte abs 0.86 0.80 - 3.30 K/cumm [facility] Monocyte abs 0.76 0.20 - 0.80 K/cumm [facility] Eosinophil abs 0.07 0.00 - 0.50 K/cumm [facility] Basophil abs 0.04 0.00 - 0.10 K/cumm WIL [facility] Neutrophil pct 70.3 % WIL [facility] Comment: Interpretive Data Percent cell count reference ranges are not reported, since discordance with absolute values may lead to misinterpretation of CBC data. Current Interpretive Data was last revised on 2017. Imm gran pct 0.7 % WIL [facility] Comment: Interpretive Data Percent cell count reference ranges are not reported, since discordance with absolute values may lead to misinterpretation of CBC data. Current Interpretive Data was last revised on 2017. Lymphocyte pct 14.4 % [facility] Comment: Interpretive Data Percent cell count reference ranges are not reported, since discordance with absolute values may lead to misinterpretation of CBC data. Current Interpretive Data was last revised on 2017. Monocyte pct 12.7 % WIL [facility] Comment: Interpretive Data Percent cell count reference ranges are not reported, since discordance with absolute values may lead to misinterpretation of CBC data. Current Interpretive Data was last revised on 2017. Eosinophil pct 1.2 % [facility] Comment: Interpretive Data Percent cell count reference ranges are not reported, since discordance with absolute values may lead to misinterpretation of CBC data. Current Interpretive Data was last revised on 2017. Basophil pct 0.7 % WIL [facility] Comment: Interpretive Data Percent cell count reference ranges are not reported, since discordance with absolute values may lead to misinterpretation of CBC data. Current Interpretive Data was last revised on 2017. Blood 10/01/2024 9:50 PM CDT 10/01/2024 9:55 PM CDT us Ervin Morin MD LAB BLOOD ORDERABLES Final R esult [facility] [address] [facility]. Department of Anytime DD [place], [place] [id number] * (ABNORMAL) CBC with auto differential (10/01/2024 9:50 PM CDT) Pathologist [facility] [place] WBC 5.99 3.80 - 9.90 K/cumm Hgb 11.4(L) 11.9 - 15.5 g/dL [facility] Hct 35.0(L) 35.6 - 45.5 % [facility] Plt 294 150 - 400 K/cumm [facility] MPV 10.0 9.1 - 12.3 fL [facility] RBC 3.71(L) 3.90 - 5.20 M/cumm [facility] MCV 94.3 81.3 - 96.4 fL [facility] MCH 30.7 27.1 - 33.3 pg [facility] MCHC 32.6 32.3 - 35.7 g/dL [facility] RDW CV 13.2 11.1 - 14.9 % [facility] RDW SD 45.2 35.7 - 48.1 fL [facility] NRBC abs 0.00 0.00 - 0.01 K/cumm [facility] Blood 10/01/2024 9:50 PM CDT 10/01/2024 9:55 PM CDT Ervin Morin MD LAB BLOOD ORDERABLES Final R esult [facility] [address] [facility]. [place] [address] * (ABNORMAL) Basic metabolic panel (10/01/2024 9:50 PM CDT) Pathologist [facility] [place] Sodium 136 135 - 145 mmol/L Potassium, pl 3.3 3.3 - 4.9 mmol/L [facility] Chloride 97 97 - 110 mmol/L [facility] CO2 23 22 - 32 mmol/L [facility] Anion gap 16(H) 2 - 15 mmol/L [facility] BUN 19 6 - 25 mg/dL [facility] Creatinine 0.90 0.60 - 1.10 mg/dL [facility] Glucose 116 70 - 199 mg/dL [facility] Comment: Interpretive Data Fasting glucose >/= 126 [...] classification and Diagnosis of Diabetes Diabetes Care 202; 46: S19-S40. Current interpretive data was last revised 2022. Calcium 9.3 8.5 - 10.3 mg/dL [facility] Blood 10/01/2024 9:50 PM CDT 10/01/2024 9:55 PM CDT Ervin Morin MD LAB BLOOD ORDERABLES Final R esult Performing Organization Address City/[facility]/ZIP Co de Phone Number [facility] [address] [facility] Department [place] [address] * Hepatitis C antibody (11/19/2021 2:35 PM CDT) Pathologist [facility] [place] Hep C Ab Nonreactive Nonreactive [facility] Comment:Antibodies to HCV no t detected. Does NOT exclude the possibility of recent exposure to HCV. Blood 11/19/2021 2:35 PM CDT 11/19/2021 4:08 PM CDT Yumiko Shaffer MD LAB MICROBIOLOGY - GENERAL O RDERABLES Edited Result - Final [facility] [place] [address] from Last 3 Months or Most Recently Relevant to Health Maintenance Insurance [employer] MEDICARE MEDICARE [employer]ARE [employer] Advance Directives For more information, please contact: [phone] * Full Code (Latest Code Status on File) Date Activated Date Inactivated Comments 03/05/2021 8:14 AM 03/10/2021 4:43 PM Care Teams Mussel Farmer Relationship Specialty Start Date End Date Noris Limon NP [facility] [address] [place] [address] PCP - General Internal Medicine 10/01/24 Yumiko Shaffer MD Consulting Physician Internal Medicine 02/19/23
== END 2024-12-07 18:38 | disposition home or self-care (01) ==
PROVIDERS: Emergency Medicine; Emergency Provider Student in an Organized Health Care Education/Training Program; PCP Nurse Practitioner
DX: M79.3 Panniculitis, unspecified (principal); E78.5 Hyperlipidemia, unspecified; K21.9 Gastro-esophageal reflux disease without esophagitis; M06.9 Rheumatoid arthritis, unspecified; Z87.442 Personal history of urinary calculi; Z87.891 Personal history of nicotine dependence; Z90.710 Acquired absence of both cervix and uterus; K44.9 Diaphragmatic hernia without obstruction or gangrene
CPT/HCPCS: 36415; 74177; 80053; 81003; 83690; 85025; 96361; 96374; 96375; 99284; J2270; J2405; J7030; Q9967

== ENCOUNTER 2024-12-09 18:16 | Inpatient (IN) | payer MEDICARE, OTHER, SELFPAY ==
--- OUTSIDE RECORDS SUMMARY | 2009-04-14 08:15 | XMS_ITS | Continuity of Care Document ---
Author Organization [facility] Address [address] [place] [address] utive [facility] [address] [place] [address] Phone Care Team Providers Care Ux Designer Name Role Phone Sean Chapa Unavailable Unavailable Procedures Procedure Date Visual Field Examination(s) Office/outpatient Visit, Est Visual Field Examination(s) Office/outpatient Visit, Est Office/outpatient Visit, Est Visual Field Examination(s) Eye Exam, New Patient Advance Directives Directive Yes / No Effective Date File Name No Information Encounters Encounter Description Practice Location Reason(s) For Visit Diagnoses Date Provider Providers Copied on Encounter [facility], [address] [place], [place] [address], [place], [place], [address], tel:[phone] [facility] No Information 6-201 0 Eduard Estrada. [facility] [address], [address], [place]. tel:[phone] Referring Provider: Sean oleary [facility] [address], [place], [address]. tel:[phone] Office/outpat ient Visit, Est [facility], [address] [place], [place] [address]te [address], [place], [place], [address], tel:[phone] [facility] No Information 8-200 9 Eduard Juanhil. [facility] [address], [facility], [place]. tel:[phone] [facility] Eye [facility], [address], [place], [place], [address], [place] tel:[phone] [facility] No Information 3-200 9 Eduard Sellersl. 2421 [facility] 102, [place], [facility], [place]. tel:[phone] Referring Provider: Sean oleary, 2421 [facility] 102, [place], [facility]. tel:[phone] Office/outpat ient Visit, [facility] Eye [facility], [address], [place], [place], [address], [place] tel:[phone] [facility] No Information 9-200 8 Krishnasamy Sean. [facility] 102, [place], [facility], [place]. tel:[phone] Office/outpat ient Visit, [facility] Eye [facility], [address], [place], [place], [address], [place] tel:[phone] [facility] No Information 8-200 8 Kingsley Goldberg. [address] [facility] [place] [place], [address], [place]. tel:[phone] [facility] Eye [facility], [address], [place], [place], [address], [place] tel:[phone] [facility] No Information 1-200 7 Kingsley Goldberg. [address] [facility], [facility] [place], [address], [place]. tel:[phone] Referring Provider: Yusuf Nieves, [address] [facility] [place], [address] . tel:[phone] [facility], [address], [place], [place], [address], [place] tel:[phone] [facility] No Information 7 Kingsley Goldberg. [address] [facility], [address], [place], [place], [address], [place]. tel:[phone] Referring Provider: David Head, [address] [place] [address], [address]. tel:[phone] Family History Family Member Type Diagnosis Age At Onset No Information Payers Payer name Insurance type Covered democrat ID Authoriza tion(s) No Information Social History Type Description Quantity Date Captured Comments Sex Female Smoking Status No Information Chief Complaint And Reason For Visit No Information Reason For Referral Reason For Referral No Information History Of Present Illness Encounter Date Complaint History Of Prese nt Illness No Information Functional Status Date Functional Assessmen t No Information Instructions Date Instruction Additional Infor mation No Information Assessments Type Assessment Date No Information Patient Care Teams Name Effective Dates (start - stop) Status Members No Information
--- OUTSIDE RECORDS SUMMARY | 2009-04-14 08:15 | XMS_ITS | Continuity of Care Document ---
Author Organization [facility] Address [address] [place] [address] utive [facility] 150 [place] [address] Phone Care Team Providers Care Manager Requirements Name Role Phone Sean Chapa Unavailable Unavailable Procedures Procedure Date Visual Field Examination(s) Office/outpatient Visit, Est Visual Field Examination(s) Office/outpatient Visit, Est Office/outpatient Visit, Est Visual Field Examination(s) Eye Exam, New Patient Advance Directives Directive Yes / No Effective Date File Name No Information Encounters Encounter Description Practice Location Reason(s) For Visit Diagnoses Date Provider Providers Copied on Encounter [facility], [address] [place], [place] [address], [place], [place], [address], tel:[phone] [facility] No Information 6-201 0 Eduard Estrada. Counts include 234 beds at the [facility], [address], [place]. tel:[phone] Referring Provider: Sean oleary Counts include 234 beds at the [facility]1 [address] [address], [place], [address]. tel:[phone] Office/outpat ient Visit, Est [facility], [address] [place], [place] [address]te [address], [place], [place], [address], tel:[phone] [facility] No Information 8-200 9 Eduard Juanhil. Counts include 234 beds at the [facility] [address], [facility], [place]. tel:[phone] [facility] [address] [facility], [address], [place], [place], [address], [place] tel:[phone] [facility] No Information 3-200 9 Eduard Sellersl. 2421 [facility] 102, [place], [facility], [place]. tel:[phone] Referring Provider: Sean oleary, 2421 [facility] 102, [place], [place], [facility]. tel:[phone] Office/outpat ient Visit, [facility] Eye [facility], [address], [place], [place], [address], [place] tel:[phone] SEC [facility] No Information 9-200 8 Krishnasamy Sean. Counts include 234 beds at the [facility]1 [facility] 102, [place], [facility], [place]. tel:[phone] Office/outpat ient Visit, [facility] Eye [facility], [address], [place], [place], [address], [place] tel:[phone] [facility] No Information 8-200 8 Kingsley Goldberg. [address] [facility] [place], [address], [place]. tel:[phone] [facility], [address], [place], [place], [address], [place] tel:[phone] [facility] No Information 1-200 7 Kingsley Goldberg. [address] [facility], [place], [address], [place]. tel:[phone] Referring Provider: Yusuf Nieves, [address] [facility] [place], [address] . tel:[phone] [facility] [address] [facility], [address], [place], [place], [address], [place] tel:[phone] [facility] No Information 7 Kingsley Goldberg. [address] [facility], [address], [place], [place], [address], [place]. tel:[phone] Referring Provider: David Head, [address] [place] [address], [address]. tel:[phone] Family History Family Member Type Diagnosis Age At Onset No Information Payers Payer name Insurance type Covered green party ID Authoriza tion(s) No Information Social History [...]
--- OUTSIDE RECORDS SUMMARY | 2024-12-08 14:06 | XMS_ITS | Encounter Summary ---
Author Organization [facility] Healthcare Address [address] [place] [address] Care Team Providers Care Thermal Technician Name Role Phone Yumiko Shaffer MD Unavailable [phone] Noris Limon NP Primary Care Provider [phone] Reason for Visit * Reason Comments Constipation Encounter Details Date Type Department Care Team (Latest Contact Info) Description 12/08/2024 2:06 PM CDT - 12/08/2024 3:47 PM CDT Emergency [facility] Emergency Department [address] [place] [id number] T wave inversion in electrocardiogram (Primary Dx); ST segment changes on electrocardiogram Discharge Disposition: Left without being seen Social History Tobacco Use Types Packs/Day Years [...] making you feel afraid or unsafe? 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 Gender Identity Not on file Sexual Orientation Not on file documented as of this encounter Last Filed Vital Signs Vital Sign Reading Time Taken Comments Blood Pressure 96/60 12/08/2024 2:35 PM CDT Pulse 89 12/08/2024 2:35 PM CDT Temperature 36.9 C (98.4 F) 12/08/2024 2:35 PM CDT Respiratory Rate 16 12/08/2024 2:35 PM CDT Oxygen Saturation 95% 12/08/2024 2:35 PM CDT Inhaled Oxygen Concentration - - Weight 50.8 kg (112 lb) 12/08/2024 2:35 PM CDT Height 149.9 cm (4' 11) 12/08/2024 2:35 PM CDT Body Mass Index 22.62 12/08/2024 2:35 PM CDT documented in this encounter Medications at Time of Discharge ALPRAZolam (XANAX) 0.25 mg tablet Take 1 tablet (0.25 mg total) by mouth daily as needed 01/19/2024 calcium (CALCIO PATRICK) 500 mg tablet take 1 tablet twice a day 0 08/29/2011 golimumab (Simponi) 50 mg/0.5 mL pen injectorIndications: Rheumatoid Arthritis Inject 0.5 mL (50 mg total) under the skin every 28 (twenty-eight) days 1.5 mL 3 11/22/2024 hydroxychloroquine (PLAQUENIL) 200 mg tabletIndications:Se ropositive rheumatoid arthritis of multiple sites (HCC),Primary osteoarthritis involving multiple joints TAKE 1 TABLET BY MOUTH TWICE DAILY 180 tablet 10/26/2024 ondansetron ODT (ZOFRAN-ODT) 8 mg disintegrating tablet [...] by mouth daily 30 tablet 1 01/25/2020 predniSONE (DELTASONE) 5 mg tabletIndications:Se ropositive rheumatoid arthritis of multiple sites (HCC) Take 3 tablets (15 mg) by mouth daily for 7 days, THEN 2 tablets (10 mg) daily for 14 days, THEN 1 tablet (5 mg) daily for 7 days. 56 tablet 11/22/2024 5 documented as of this encounter Discharge Disposition Disposition Code Departure Means Destination Left without being seen documented in this encounter Miscellaneous Notes * ED Procedure Note - David Kim MD - 12/08/2024 2:58 PM CDTAssociated Order(s): ECG 12 lead Procedure ECG 12 lead Date/Time: 12/08/2024 2:58 PM Performed by: David Kim MD Authorized by: Isai Espinoza MD Rate: ECG rate: 85 ECG rate assessment: normal Rhythm: Rhythm: sinus rhythm Ectopy: Ectopy: none QRS: QRS axis: Normal QRS intervals: Normal Conduction: Conduction: normal ST segments: ST segments: Non-specific Elevation: I and II Depression: AVF, aVR, V5 and V6 T waves: T waves: inverted Inverted: I, II, aVF, V3, V4, V5 and V6 Previous ECG: Previous ECG: Compared to current Date of previous EC03/05/2021 Comparison ECG info: New infero-lateral T wave inversions and ST changes Similarity: Changes noted Interpretation: Interpretation: abnormal Recommended Follow-up: Recommended follow up: cardiac workup Comments: New infero-lateral T wave inversions and ST changes David Kim MD 12/08/24 1500 * ED Pre-Arrival Note - Niesha Hernandez RN - 12/08/2024 2:07 PM CDT Pre-Arrival Note Pt coming with constipation s/p starting new medication for RA. Had a BM this morning, feeling muchbetter. A/o x4, VSS Niesha Hernandez RN documented in this encounter Plan of Treatment Not on file documented as of this encounter Procedures Procedure Name Priority Date/Time Associated Diagnosis Comments EGFR STAT 12/08/2024 2:59 PM CDT LIPASE STAT 12/08/2024 2:59 PM CDT COMPREHENSIVE METABOLIC PANEL STAT 12/08/2024 2:59 PM CDT ECG 12-LEAD STAT 12/08/2024 2:58 PM CDT documented in this encounter Results * eGFR (12/08/2024 2:59 PM CDT) eGFR 82 >=60 mL/min/1. 73 m2 Comment: Interpretive Data [...] interpretive data was last reviewed 2020. Blood 12/08/2024 2:59 PM CDT 12/08/2024 3:37 PM CDT us Isai Espinoza MD LAB BLOOD ORDERABLES Meredith l Result [facility] Department [place] [address] * Lipase (12/08/2024 2:59 PM CDT) Pathologist [facility] Lipase 14 10 - 99 Units/L Blood Venous blood specimen / Unknown 12/08/2024 2:59 PM CDT 12/08/2024 3:37 PM CDT Isai Espinoza MD LAB BLOOD ORDERABLES Meredith l Result Performing Organization Address [facility] Co de Phone Number [facility] Department [place] [address] * Comprehensive metabolic panel (12/08/2024 2:59 PM CDT) [facility] Sodium 139 135 - 145 mmol/L Potassium, pl 3.7 3.3 - 4.9 mmol/L [facility] Chloride 105 97 - 110 mmol/L [facility] CO2 23 22 - 32 mmol/L [facility] Anion gap 11 2 - 15 mmol/L [facility] BUN 18 6 - 25 mg/dL [facility] Creatinine 0.77 0.60 - 1.10 mg/dL [facility] Glucose 118 70 - 199 mg/dL [facility] Comment: Interpretive Data Fasting glucose >/= 126 [...] interpretive data was last revised 2022. Calcium 9.0 8.5 - 10.3 mg/dL [facility] Bilirubin, total 0.8 0.1 - 1.2 mg/dL [facility] Protein, pl 7.1 6.5 - 8.5 g/dL [facility] Albumin 3.6 3.5 - 5.0 g/dL [facility] Alk phos 72 40 - 130 Units/L [facility] ALT 14 7 - 45 Units/L [facility] AST 28 10 - 45 Units/L [facility] Blood 12/08/2024 2:59 PM CDT 12/08/2024 3:37 PM CDT us Isai Espinoza MD LAB BLOOD ORDERABLES Meredith l Result [facility] Department [place] [address] * (ABNORMAL) ECG 12-LEAD (12/08/2024 2:58 PM CDT) Narrative [facility] - 12/08/2024 2:58 PM CDT David Kim MD 12/08/2024 3:00 PM ECG 12 lead Date/Time: 12/08/2024 2:58 PM Performed by: David Kim MD Authorized by: Isai Espinoza MD Rate: ECG rate: 85 ECG rate assessment: normal Rhythm: Rhythm: sinus rhythm Ectopy: Ectopy: none QRS: QRS axis: Normal QRS intervals: Normal Conduction: Conduction: normal ST segments: ST segments: Non-specific Elevation: I and II Depression: AVF, aVR, V5 and V6 T waves: T waves: inverted Inverted: I, II, aVF, V3, V4, V5 and V6 Previous ECG: Previous ECG: Compared to current Date of previous EC03/05/2021 Comparison ECG info: New infero-lateral T wave inversions and ST changes Similarity: Changes noted Interpretation: Interpretation: abnormal Recommended Follow-up: Recommended follow up: cardiac workup Comments: New infero-lateral T wave inversions and ST changes Procedure Note David Kim MD - 12/08/2024 2:58 PM CDT Procedure ECG 12 lead Date/Time: 12/08/2024 2:58 PM Performed by: David Kim MD Authorized by: Isai Espinoza MD Rate: ECG rate: 85 ECG rate assessment: normal Rhythm: Rhythm: sinus rhythm Ectopy: Ectopy: none QRS: QRS axis: Normal QRS intervals: Normal Conduction: Conduction: normal ST segments: ST segments: Non-specific Elevation: I and II Depression: AVF, aVR, V5 and V6 T waves: T waves: inverted Inverted: I, II, aVF, V3, V4, V5 and V6 Previous ECG: Previous ECG: Compared to current Date of previous EC03/05/2021 Comparison ECG info: New infero-lateral T wave inversions and STchanges Similarity: Changes noted Interpretation: Interpretation: abnormal Recommended Follow-up: Recommended follow up: cardiac workup Comments: New infero-lateral T wave inversions and ST changes David Kmi MD 12/08/24 1500 us Isai Espinoza MD ECG ORDERABLES Final Res ult [facility] documented in this encounter Visit Diagnoses Diagnosis T wave inversion in electrocardiogram- Primary ST segment changes on electrocardiogram documented in this encounter Care Teams Thermal Technician Relationship Specialty Start Date End Date Noris Limon NP [address] [facility] [address] [place] [address] PCP - General Internal Medicine 10/01/24 Yumiko Shaffer MD Consulting Physician Internal Medicine 02/19/23 documented as of this encounter
--- OUTSIDE RECORDS SUMMARY | 2024-12-08 14:06 | XMS_ITS | Encounter Summary ---
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 Gender Identity Not on file Sexual Orientation [...] MD LAB BLOOD ORDERABLES Meredith l Result [facility] Department [place] [address] * Lipase (12/08/2024 2:59 PM CDT) Pathologist [facility] Lipase 14 10 - 99 Units/L Blood Venous blood specimen / Unknown 12/08/2024 2:59 PM CDT 12/08/2024 3:37 PM CDT Isai Espinoza MD LAB BLOOD ORDERABLES Meredith l Result Performing Organization Address [facility] [place]/[facility] Co de Phone Number [facility] Department [place] [address] * Comprehensive metabolic panel (12/08/2024 2:59 PM CDT) [facility] Sodium 139 135 - 145 mmol/L Potassium, pl 3.7 3.3 - 4.9 mmol/L [facility] Chloride 105 97 - 110 mmol/L [facility] CO2 23 22 - 32 mmol/L [facility] Anion gap 11 2 - 15 mmol/L [facility] BUN 18 6 - 25 mg/dL [facility] Creatinine 0.77 0.60 - 1.10 mg/dL [facility] Glucose 118 70 - 199 mg/dL [facility] Comment: Interpretive Data Fasting glucose >/= [...] 2022. Calcium 9.0 8.5 - 10.3 mg/dL [facility] Bilirubin, total 0.8 0.1 - 1.2 mg/dL [facility] Protein, pl 7.1 6.5 - 8.5 g/dL [facility] Albumin 3.6 3.5 - 5.0 g/dL [facility] Alk phos 72 40 - 130 Units/L [facility] ALT 14 7 - 45 Units/L [facility] AST 28 10 - 45 Units/L [facility] Blood 12/08/2024 2:59 PM CDT 12/08/2024 3:37 PM CDT us Isai Espinoza MD LAB BLOOD ORDERABLES Meredith l Result [facility] One [facility] Department [place] [address] * (ABNORMAL) ECG 12-LEAD (12/08/2024 2:58 PM [...] ST changes David Kim MD 12/08/24 1500 us Isai Espinoza MD ECG ORDERABLES Final Res ult [facility] documented in this encounter Visit Diagnoses Diagnosis T wave inversion in electrocardiogram- Primary ST segment changes on electrocardiogram documented in this encounter Care Teams Center Mgr Relationship Specialty Start Date End Date Noris Limon NP [address] [facility] [address] [place] [address] PCP - General Internal Medicine 10/01/24 Yumiko Shaffer MD Consulting Physician Internal Medicine 02/19/23 documented as of this encounter
[2024-12-09] VITALS (9 sets, daily range): BP systolic 102–148; BP diastolic 59–96; PULSE 75–88; RESP 14–20; TEMP 36.6–37.1; O2SAT 94–98; BMI 24.3
--- NOTE | ~2024-12-09 | XR_ITS ---
EXAMINATION: XR sm bowel follow through DATE: 12/10/2024 15:51 INDICATION: Small bowel obstruction. Abdominal pain. TECHNIQUE: Oral contrast was administered, and a time course of radiographs of the abdomen was obtained. Fluoroscopy of the small bowel was not performed. Fluoroscopy exposure time was 0 minutes. The total number of images was 18. COMPARISON: CT abdomen and pelvis 12/09/24 FINDINGS: The nasogastric tube tip is in the stomach. There are changes of fundoplication of the stomach with the wrap above the diaphragm. There is a diverticulum of the third portion of the duodenum. There are multiple dilated loops of small bowel. The distal small bowel is normal in caliber. Transit time from the stomach to proximal colon was approximately 3 hours. IMPRESSION: 1. Dilated small bowel with passage of contrast, likely adynamic ileus. 2. Fundoplication of the stomach with the wrap in abnormal position above the diaphragm. Reviewed, dictated and finalized at location E. IMPRESSION: 1. Dilated small bowel with passage of contrast, likely adynamic ileus. 2. Fundoplication of the stomach with the wrap in abnormal position above the d iaphragm.
--- NOTE | ~2024-12-09 | CT_ITS ---
CT abdomen pelvis w con INDICATION:worsening pain, LLQ, N/V/D . COMPARISON: None. TECHNIQUE: Axial images of the abdomen and pelvis were obtained following infusion of 100 mL Isovue 300. Dose optimization technique was utilized. FINDINGS: There is a small hiatal hernia. The liver parenchyma is unremarkable. No intrahepatic mass or ductal dilatation is evident. The gallbladder is unremarkable. The pancreas and spleen are normal in appearance. The adrenal glands are symmetric in size. The kidneys demonstrate symmetric uptake and excretion of contrast. No cystic mass is evident. There is no solid mass. There is no hydronephrosis. There is a fluid-filled distended stomach and small bowel loops with multiple air-fluid levels. The distal small bowel loops are contracted suggestive of a small bowel obstruction. Transition point is in the mid lower abdomen. The bladder and rectum are normal. Free fluid in the central abdomen. There is no significant retroperitoneal lymphadenopathy. The aorta, visceral vessels and renal arteries demonstrate normal caliber and patency. The lower thoracic and lumbar vertebrae are in normal alignment. IMPRESSION: Findings suggestive of a small bowel obstruction. All CT scans at this facility are performed using low dose modulation techniques as appropriate to perform exam including the following: automated exposure control; use of iterative reconstruction technique; adjustment of the mA and/or kV according to patient size (this includes techniques or standardized protocols for targeted exams where dose is matched to indication/reason for exam). Reviewed, dictated and finalized at location S. IMPRESSION: Findings suggestive of a small bowel obstruction. All CT scans at this facility are performed using low dose modulation techniqu es as appropriate to perform exam including the following: automated exposure c ontrol; use of iterative reconstruction technique; adjustment of the mA and/or kV according to patient size (this includes techniques or standardized protocol s for targeted exams where dose is matched to indication/reason for exam).
--- NOTE | ~2024-12-09 | XR_ITS ---
XR abdomen gastric tube insert INDICATION: NG PLACEMENT REFERENCE: NONE FINDINGS: A supine view of the abdomen is submitted.Enteric tube terminates in the stomach. Diffuse gaseous distention of the bowel loops are noted. Osseous structures are intact. IMPRESSION: Enteric tube is in appropriate position within the stomach. Diffuse gaseous distention of the bowel loops suggestive of a bowel obstruction is noted. Reviewed, dictated and finalized at location S.
--- OUTSIDE RECORDS SUMMARY | 2024-12-09 18:19 | XMS_ITS | Encounter Summary ---
Author Organization [facility] Address [address] [place] [address] Care Team Providers Care Physician Specialist Name Role Phone Beatriz Nuñez MD Primary Care Provider [phone] Encounter Details Date Type Department Care Team (Late st Contact Info) Description 08/06/2019 Lab Requisition [facility] DermPath Lab [address] [place] [address] Lew Cedeno MD [facility] [place] [address] Social History Tobacco Use Types [...] AM CDT) Case Report Dermatopathology Report Case: [id number] Authorizing Provider: Lew Cedeno MD Collected: 08/04/2019 12:00 AM Ordering Location: [facility] Derm[facility] Lab Received: 08/06/2019 06:36 AM [...] characteristic determined by the Dermatopathology Laboratory at [facility], directed by Dr. Wayne Vasques. These tests need not be, and therefore are not, approved by the [place] Food and Drug Administration. The tests are used for clinical purposes. Billing Codes Specimen Charges Stain Charges 92649 1 0 6:56 PM CDT DERMATOPATHOLOGY LABORATORY Embedded Images 0 6:56 PM CDT DERMATOPATHOLOGY LABORATORY Pathology/Cytolog y TISSUE SPECIMEN FROM SKIN / Unknown 08/04/2019 08/06/2019 6:36 AM CDT us Lew Cedeno MD LAB - PATHOLOGY/CYTOLOGY ORDERAB LES Final Result DERMATOPATHOLOGY LABORATORY [facility] - Department of Dermatology [facility] [address], [facility] [phone] documented in this encounter Visit Diagnoses Not on filedocumented in this encounter Care Teams Physician Specialist Relationship Specialty Start Date End Date Beatriz Nuñez MD [address] [place] [address] PCP - General 05/01/18 documented as of this encounter
--- OUTSIDE RECORDS SUMMARY | 2024-12-09 18:19 | XMS_ITS | Encounter Summary ---
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
--- OUTSIDE RECORDS SUMMARY | 2024-12-09 18:19 | XMS_ITS | Encounter Summary ---
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 [address] [address] PCP - General Internal Medicine 10/01/24 Yumiko Shaffer MD Consulting Physician Internal Medicine 02/19/23 documented as of this encounter
--- OUTSIDE RECORDS SUMMARY | 2024-12-09 18:19 | XMS_ITS | Encounter Summary ---
Author Organization [facility] Address [address] [place] [address] Phone Care Team Providers Care Miter Operator Name Role Phone Beatriz Nuñez MD Primary Care Provider [phone] Yumiko Shaffer MD Unavailable [phone] Noris Limon NP Primary Care Provider [phone] Encounter Details Date Type Department Care Team (Late st Contact Info) Description 06/30/2017 Orders Only [facility] ProviderEddie MD [facility] [place] [address] Social History Tobacco Use Types Packs/Day Years Used Date Smoking Tobacco: Former Smokeless Tobacco: Never Comments:Smoking History Pac ks/day: 0.75 Packs Alcohol Use Standard Drinks/Week Comments Yes 0 (1 standard drink = 0.6 oz pur e alcohol) Comments Unknown Sex and Gender Information Value Date Recorded Sex Assigned at Not on file 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 Gender Identity Not on file Sexual Orientation [...] COVID: Suspected 03/05/2021 03/05/2021 03/05/2021 2:35 AM DIRECTOR OF PLAYER PERSONNEL COVID: Suspected 10/01/2024 10/01/2024 10/01/2024 10:43 PM CDT COVID: Suspected 10/01/2024 10/01/2024 10/01/2024 11:34 PM CDT documented as of this encounter Care Teams Miter Operator Relationship Specialty Start Date End Date Beatriz Nuñez MD [address] [place] [address] PCP - General 05/20/16 09/30/24 Noris Limon NP [address] [place] [address] [place] [address] PCP - General Internal Medicine 10/01/24 Yumiko Shaffer MD [address] [place] [address] Consulting Physician Internal Medicine 02/19/23 documented as of this encounter
--- OUTSIDE RECORDS SUMMARY | 2024-12-09 18:19 | XMS_ITS | Clinical Summary ---
Author Organization [facility] Address [address] [place] [address] Care Team Providers Care Ordained Minister Name Role Phone Beatriz Nuñez MD Primary Care Provider [phone] Source Comments [facility],non-owned Affiliates and Associated Physician Practices is amultiple site organization consisting of ambulatory clinics and hospital sitesin [place], [place], [place] and [place]. This disclosure is being madepursuant to the Care Everywhere program and may not contain all informatio navailable regarding this patient. Last updated 17.[facility] [employer] Social History Tobacco Use Types Packs/Day Years [...] complete this topic Insurance MEDICARE Care Teams Ordained Minister Relationship Specialty Start Date End Date Beatriz Nuñez MD [address] [place] [address] PCP - General 05/01/18
--- OUTSIDE RECORDS SUMMARY | 2024-12-09 18:19 | XMS_ITS | Clinical Summary ---
Author Organization [facility] D Address [address] [place] [phone] Care Team Providers Care Bakery Technician Name Role Phone Yumiko Shaffer MD Unavailable [phone] Noris Limon NP Primary Care Provider [phone] Allergies Active Allergy Reactions Criticality Noted Date [...] 03/07/2021 Assessment & Plan (03/08/2021 7:50 AM PIGMENT WEIGHER): Cr upon admission was 1.37 in the setting of dehydration 2/2 vomiting. - Cr downtrend to normal with IVF resuscitation and decompression of HH with NGT - continue mIVF Abdominal pain 03/05/2021 Hiatal hernia 03/05/2021 Assessment & Plan (03/08/2021 7:58 AM PIGMENT WEIGHER): Per CT scan: Large hiatus hernia with development of organoaxial gastric volvulus with likely associated gastric outlet obstruction secondary to the hernia and volvulus. No findings to suggest ischemia at this time. - NGT to LIWS - NPO except ice chips - mIVF - OR today for Lap HH repair - DVT PPX Hypokalemia 03/05/2021 Assessment & Plan (03/08/2021 7:50 AM PIGMENT WEIGHER): - monitor Osteoporosis 06/12/2020 Advice given about 2019 novel coronavirus by tel ephone 06/18/2019 Assessment & Plan (06/18/2019 7:16 PM CDT): The full impact of autoimmune disease and immunomodulatory medications on susceptibility and complications of coronavirus disease is not yet studied. 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 You may keep up to date at the CDC website: www.coronavirus.gov You may also find more information relevant to your questions at the [employer] webpage: arthritis.org. Click on the Coronavirus banner. It is imperative that you adhere to the wgxt-sw-kcmw orders issued for your community, especially in view of your potentially immunocompromised status. Feel free to reach out to us if you have additional questions after you review this information. You may review the current [place] [employer] Covid-19 clinical guidance for Patients with Rheumatic Diseases if you copy and paste the link below into your web browser: [email or web address]/[email or web address]/[email or web address]-Fwxcgblq-Qvrd curtis-P felitsj-qqpo-Ozmjycbjh-Diseases.pdf Encounter for long-term (cur rent) use of high-risk medication 10/28/2016 Assessment & Plan (04/10/2021 8:11 PM PIGMENT WEIGHER): Long-term use of high-risk medication requiring regular monitoring. Labs ordered, no s/s of med tox or infection. Encouraged to work with PCP to make sure all recommended cancer screens and vaccinations are complete. Avoid live-vaccines unless reviewed with certified lactation counselor first. HCQ eye exams every 6 months. [...] month. Assessment & Plan (01/26/2019 11:28 AM PIGMENT WEIGHER): Patient on immunosuppressive medications requiring periodic lab monitoring for drug safety. Update lab as per orders written. Assessment & Plan (08/04/2018 2:21 PM CDT): Patient on immunosuppressive medications requiring periodic lab monitoring for drug safety. Update lab as per orders written. Assessment & Plan (02/25/2018 12:12 PM PIGMENT WEIGHER): Patient on immunosuppressive medications requiring periodic lab [...] written. Assessment & Plan (02/26/2017 12:01 PM PIGMENT WEIGHER): Patient on immunosuppressive medications requiring periodic lab monitoring for drug safety. Update lab as per orders written. Assessment & Plan (10/28/2016 3:04 PM CDT): Patient on immunosuppressive medications requiring periodic lab monitoring for drug safety. Update lab as per orders written. BMI 22.0-22.9, adult 10/28/2016 Assessment & Plan (01/26/2019 11:28 AM PIGMENT WEIGHER): BMI satisfactory. A healthy diet and routine exercise regimen are frye to weight management. Assessment & Plan (08/04/2018 2:21 PM CDT): BMI satisfactory. A healthy diet and routine exercise regimen are frye to weight management. Assessment & Plan (02/25/2018 12:12 PM PIGMENT WEIGHER): Weight loss noted. Good work! BMI satisfactory. A healthy diet and routine exercise regimen are frye to weight management. Assessment & Plan (10/28/2017 5:36 PM CDT): BMI normal. Continue healthy diet and exercise regimen. Assessment & Plan (06/30/2017 9:49 AM CDT): BMI normal. Continue healthy diet and exercise regimen. Assessment & Plan (02/26/2017 12:00 PM PIGMENT WEIGHER): BMI normal. Continue healthy diet and exercise regimen. Rheumatoid arthritis involvi ng multiple sites with positive rheumatoid factor ([facility]) 11/04/2013 Overview (11/24/2020): Images from the original note were not included. 12/06-Rheum Hx: In 2000 developed pain in toes, neck and shoulders, hands and knees, Dx with RA, started on plaquenil, and prednisone, then switched methotrexate (elevated LFTs), remicade (was on until insurance switched her to kwcrdufljb-4-3 yrs), then was on Humira (helped for years, but then broke out in urticaria and had to stop), then now has been on Orencia since, initially on SQ injection then infusion. Assessment & Plan (04/10/2021 8:12 PM PIGMENT WEIGHER): -Currently stable on Orencia 500 mg IV every 4 weeks, plaquenil 200 mg bid ttoday she has no active synovitis, primarily OA changes in hands. Continue plaquenil with eye exam every 6 mo. Assessment & Plan (03/05/2021 8:16 AM PIGMENT WEIGHER): Holding home dose of Plaquenil and prednisone [...] same. Assessment & Plan (01/26/2019 11:27 AM PIGMENT WEIGHER): RA clinically stable on Orencia regimen. No [...] prednisone. Assessment & Plan (02/25/2018 12:12 PM PIGMENT WEIGHER): RA with recent flare (Rapid3 6.7) associated [...] all medications you are currently taking, including sqnc-dyx-jykkuwv medications, supplements, and herbal therapies. Also, tell [...] Param Manuel MD and reviewed by the [place] [employer] Committee on Communications and Marketing. This information is provided for general education only. Individuals should consult a qualified health care provider for professional medical advice, diagnosis and treatment of a medical or health condition. 2017 [place] - See more at: https://www.rheumatology.org/I-Am-A/Patient-Caregiver/Treatments/Rituximab-Ritux dee dee-Wv bThera#sthash.[email or web address].dpuf Assessment & Plan (10/28/2017 9:43 PM CDT): [...] exhausted. Assessment & Plan (02/26/2017 12:01 PM PIGMENT WEIGHER): Well controlled on current med regimen. Continue [...] hip Assessment & Plan (04/11/2021 1:15 PM PIGMENT WEIGHER): Last DEXA was 11/26/2017 showing T-2.7 spine, [...] do. Assessment & Plan (01/26/2019 11:29 AM PIGMENT WEIGHER): Update 25 [place] Vitamin D. DEXA from [facility] still not received. Will request again. Assessment & Plan (08/04/2018 2:22 PM CDT): Will work on obtaining bone density report from [facility]; Sharon. Assessment & Plan (10/28/2017 9:44 PM CDT): Images from the original note were not included. Schedule update DEXA as previously discussed. Assessment & Plan (06/30/2017 9:49 AM CDT): Update DEXA scheduled per Sensitized Paper Tester. Advised patient to have copy sent to our office. Urticaria 08/29/2011 Overview (05/22/2016): Urticaria Depression 08/29/2011 Overview (05/22/2016): Depression Never smoked tobacco 06/07/2010 Overview (05/30/2017): Description: 06/07/10 confirmed--03/18/11 CONFIRMED Idiopathic urticaria 04/19/2010 Resolved Problems Problem Noted Date Diagnosed Date Resolved Date Drug indicated 06/10/2013 06/30/2017 Overview (05/24/2016): High risk medication use Urticaria, unspecified 08/02/201006/30 Encounters Date Type Department Care Team Description 12/09/2024 Results Follow-Up [facility] Emergency Department [address] [place] [address] Reg Gallardo RN Comprehensive metabolic panel, Lipase, eGFR 12/08/2024 2:06 PM CDT - 12/08/2024 3:47 PM CDT Emergency [facility] Department [address] [place] [address] T wave inversion in electrocardiogram (Primary Dx); ST segment changes on electrocardiogram Discharge Disposition: Left without being seen 11/22/2024 10:40 AM CDT Office Visit [facility] [address] [place] [address] [facility] 5th [place] [address] [place] [address] Yumiko Shaffer MD Seropositive rheumatoid arthritis of multiple sites (HCC) (Primary Dx); Primary osteoarthritis involving multiple joints; High risk medication use; Other osteoporosis without current pathological fracture 11/09/2024 Documentation [facility] [address] 2nd [address] [place] [address] [facility]ila Eye Exam (10-22-24 morteza barragan OD ok for plaquenil) 10/14/2024 Telephone [facility] [address] [place] [address] Trey Bustamante RPh 10/11/2024 9:20 AM CDT - 10/11/2024 11:59 PM CDT Hospital Encounter [facility] [address] [place] [address] Yumiko Shaffer MD Discharge Disposition: Discharge to home or self care 10/11/2024 9:15 AM CDT Lab [facility] [address] [place] [phone] High risk medication use 10/11/2024 8:20 AM CDT Office Visit [facility] [address] [place] [address] [facility] 5th [address] [place] [address] Yumiko Shaffer MD Seropositive rheumatoid arthritis of multiple sites (HCC) (Primary Dx); Primary osteoarthritis involving multiple joints; High risk medication use; Other osteoporosis without current pathological fracture 10/11/2024 Results Follow-Up [facility] [address] 5th [address] [place] [address] Yumiko Shaffer MD XR Foot Left 3 or More Views 10/01/2024 9:51 PM CDT - 10/02/2024 12:25 AM CDT Emergency [facility] Emergency Department [address] [place] [address] Ervin Morin MD Watson, Brendan Matthew, MD [...] on file Legal Sex Female 5:33 PM PIGMENT WEIGHER Gender Identity Not on file Sexual Orientation [...] Mass Index 22.62 12/08/2024 2:35 PM CDT Plan of Treatment Health Maintenance Due [...] 12/18/2020, 05/02/2020, 04/11/2020 Influenza Vaccine (#1) 2024 3, 11/24/2020, 12/01/2019, Additional history exists Hepatitis B Screening Completed 11/19/2021 Hepatitis C Screening Completed 11/19/2021 Medical Devices Implanted Type Area Rehabilitation Technician Device Identifier Shelf Expiration Date Model / Serial / Lot oBaz [id number] [employer] 10x7cm 4 Sheet Freeze Dried Graft Soft Tissue - S00 - [id number] Implanted:Qty : 1 on 03/08/2021 by Bryson Dc MD at [facility] Mesh N/A: Other - see comments [employer] [id number] 12/04/2021 [id number] / 00 / Description:Hiatus per Dr. Clarice marcos Procedures Procedure Name Priority Date/Time Associated Diagnosis Comments EGFR STAT 12/08/2024 2:59 PM CDT LIPASE STAT 12/08/2024 2:59 PM CDT COMPREHENSIVE METABOLIC PANEL STAT 12/08/2024 2:59 PM CDT ECG 12-LEAD STAT 12/08/2024 2:58 PM CDT XR FOOT LEFT 3 OR MORE VIEWS [...] Recently Relevant to Health Maintenance Results * eGFR (12/08/2024 2:59 PM CDT) [...] MD LAB BLOOD ORDERABLES Meredith l Result [facility] [address] [facility] Department [place] [address] * Lipase (12/08/2024 2:59 PM CDT) Lipase 14 10 - 99 Units/L Blood Venous blood specimen / Unknown 12/08/2024 2:59 PM CDT 12/08/2024 3:37 PM CDT us Isai Espinoza MD LAB BLOOD ORDERABLES Meredith keith Result [facility] [address] [facility] Department [place] [address] * Comprehensive metabolic panel (12/08/2024 2:59 PM CDT) [facility] Sodium 139 135 - 145 mmol/L Potassium, pl 3.7 3.3 - 4.9 mmol/L [facility] Chloride 105 97 - 110 mmol/L [facility] CO2 23 22 - 32 mmol/L [facility] Anion gap 11 2 - 15 mmol/L [facility] BUN 18 6 - 25 mg/dL [facility] Creatinine 0.77 0.60 - 1.10 mg/dL [facility] Glucose 118 70 - 199 mg/dL [facility] Comment: Interpretive Data Fasting glucose >/= 126 [...] 2022. Calcium 9.0 8.5 - 10.3 mg/dL [facility] Bilirubin, total 0.8 0.1 - 1.2 mg/dL [facility] Protein, pl 7.1 6.5 - 8.5 g/dL [facility] Albumin 3.6 3.5 - 5.0 g/dL [facility] Alk phos 72 40 - 130 Units/L [facility] ALT 14 7 - 45 Units/L [facility] AST 28 10 - 45 Units/L [facility] Blood 12/08/2024 2:59 PM CDT 12/08/2024 3:37 PM CDT Isai Espinoza MD LAB BLOOD ORDERABLES Meredith keith Result [facility] Department [place] [address] * (ABNORMAL) ECG 12-LEAD (12/08/2024 2:58 PM CDT) Narrative [facility] - 12/08/2024 2:58 PM CDT David Kim [...] Espinoza MD ECG ORDERABLES Final Res ult [facility] * XR Foot Right 3 or More [...] * T-SPOT.TB Blood (10/11/2024 9:10 AM CDT) T-SPOT.TB Negative SeeBelow Comment: Normal Value: Negative [...] test. T-SPOT.TB Panel A Spot Count 0 [facility] T-SPOT.TB Panel B Spot Count 0 [facility] T-SPOT.TB Negative Control Passed [facility] T-SPOT.TB Positive Control Passed [facility] Comment: Test Performed at: [employer] [facility], [employer] [address] [place] [phone] JILL BLACKMON,PHD Blood 10/11/2024 9:10 AM CDT 10/11/2024 9:34 AM CDT us Yumiko Shaffer MD LAB MICROBIOLOGY - GENERAL O RDERABLES Final Result [facility] [address] [facility] Department [place] [address] * (ABNORMAL) Urinalysis reflex to microscopic and culture Urine (10/01/2024 11:55 PM CDT) Color, ur Straw Yellow Clarity, ur Clear Clear [facility] Specific gravity, ur 1.018 1.003 - 1.030 [facility] pH, urine 5.5 [facility] Comment: Interpretive Data U rine pH is affected by diet, medications, systemic acid-base disturbances, and renal tubular function. pH may affect urinary stone formation. For example, urine pH below 6.0 may help reduce the tendency for calcium phosphate stones and pH greater than 6.0 may reduce the tendency for uric acid stone formation. Source: [facility] [employer] Current Interpretive Data was last revised on [...] Reflex to microscopic UA will be performed. [facility] Urine 10/01/2024 11:5 5 PM CDT 10/01/2024 11:59 PM CDT us Ervin Morin MD LAB MICROBIOLOGY - GENERAL O RDERABLES Final Result [facility] [address] [facility]. Department [place] [address] * (ABNORMAL) Urinalysis, microscopic only (10/01/2024 11:55 [...] PM CDT us Ervin Morin MD LAB URINE ORDERABLES Final R esult Performing Organization Address [facility] Co de Phone Number [facility] [phone] [address] [facility] [place] [address] * (ABNORMAL) Urine culture Urine (10/01/2024 11:55 PM CDT) Report Final Report: Growth indicates contamination with mixed bacterial maryan. (.) Comment:Testing performed by : [facility], [address] [place] [address]., [id number] Organism GROWTH INDICATES CONTAMINATION WITH MIXED MARYAN. [facility] Urine 10/01/2024 11:5 5 PM CDT 10/02/2024 2:38 AM CDT Narrative [facility] - 10/03/2024 7:58 AM CDT Urine culture reflexed based upon urinalysis results. Ervin Morni MD LAB MICROBIOLOGY - GENERAL O RDERABLES Final Result Performing Organization Address [facility] Co de Phone Number [facility] [address] [facility]. [facility] [place] [address] * XR Chest 1 Vw Portable (10/01/2024 [...] COVID-19 PCR Nasopharyngeal (10/01/2024 10:00 PM CDT) [facility] COVID-19 RNA Negative Negative Influenza A RNA Negative Negative [facility] Influenza B RNA Negative Negative [facility] RSV RNA Negative Negative [facility] Comment: Testing performed by [facility]. This test is performed using the Sientra Xpert Xpress CoV-2/Flu/RSV plus assay. This is a multiplex, real-time reverse transcriptase PCR assay intended for the qualitative detection of nucleic acid from SARS-CoV-2, influenza A, influenza B, and respiratory syncytial virus. This assay has been cleared by the [place] Food and Drug administration. The performance characteristics have been verified by the [facility]. Results must be considered in the clinical context, and a negative result does not rule out infection. Interpretive Data last revised 2023 Nasopharyngeal 10/01/2024 10 :00 PM CDT 10/01/2024 10:03 PM CDT Narrative [facility] - 10/01/2024 10:42 PM CDT Is the Patient experiencing symptoms consistent with COVID?->Yes Ervin Morin MD LAB MICROBIOLOGY - GENERAL O RDERABLES Final Result [facility] [address] [facility]. Department [place] [address] * Respiratory pathogen panel Nasopharyngeal (10/01/2024 10:00 PM CDT) [facility] Influenza A RNA Not Detected Not Detected [facility] Comment:Testing performed by : [facility], [facility] [facility], [place]., [address] Influenza B RNA Not Detected Not Detected [facility] Comment:Testing performed by : [facility], [address] [place] [address]., [address] RSV RNA Not Detected Not Detected [facility] Comment:Testing performed by : [facility], [address] [place] [address]., [address] COVID-19 RNA Not Detected Not Detected [facility] Comment:Testing performed by : [facility], [address] [place] [address]., [address] Coronavirus 229E RNA Not Detected Not Detected [facility] Comment:Testing performed by : [facility], [address] [place] [address]., [address] Coronavirus HKU1 RNA Not Detected Not Detected [facility] Comment:Testing performed by : [facility], [address] [place] [address]., [address] Coronavirus NL63 RNA Not Detected Not Detected [facility] Comment:Testing performed by : [facility], [address] [place] [address]., [address] Coronavirus OC43 RNA Not Detected Not Detected [facility] Comment:Testing performed by : [facility], [address] [place] [address]., [address] Adenovirus DNA Not Detected Not Detected [facility] Comment:Testing performed by : [facility], [address] [place] [address]., [address] Metapneumovirus RNA Not Detected Not Detected [facility] Comment:Testing performed by : [facility], [address] [place] [address]., [address] Rhinovirus/Enterov irus RNA Not Detected Not Detected [facility] Comment:Testing performed by : [facility], [address] [place] [address]., [address] Parainfluenza 1 RNA Not Detected Not Detected [facility] Comment:Testing performed by : [facility], [address] [place] [address]., [address] Parainfluenza 2 RNA Not Detected Not Detected [facility] Comment:Testing performed by : [facility], [address] [place] [address]., [address] Parainfluenza 3 RNA Not Detected Not Detected [facility] Comment:Testing performed by : [facility], [address] [place] [address]., [address] Parainfluenza 4 RNA Not Detected Not Detected [facility] Comment:Testing performed by : [facility], [address] [place] [address]., [address] B. pertussis DNA Not Detected Not Detected [facility] Comment:Testing performed by : [facility], [address] [place] [address]., [address] B. parapertussis DNA Not Detected Not Detected [facility] Comment:Testing performed by : [facility], [address] [place] [address]., [address] C. pneumoniae DNA Not Detected Not Detected [facility] Comment:Testing performed by : [facility], [address] [place] [address]., [address] M. pneumoniae DNA Not Detected Not Detected [facility] Comment: Interpretive Data The BrightNest FilmArray Respiratory Panel (RP2.1) assay is a [...] assay has FDA clearance for testing of QUALITY CONTROL ASSESSOR swabs. The performance characteristics of this assay have been determined by [facility]. Current interpretive data was last revised on 2020. Testing performed by: [facility], [address] [place] [address]., [address] Nasopharyngeal 10/01/2024 10 :00 PM CDT 10/02/2024 2:38 AM CDT Ferny Avalos MD PhD LAB MICROBIOLOGY - GENERAL ORDERABLES Final Result [facility] [address] [facility]. Department [place] [address] [facility] * eGFR (10/01/2024 9:50 PM CDT) [facility] eGFR 68 >=60 mL/min/1. 73 m2 Comment: [...] LAB BLOOD ORDERABLES Final R esult [facility] [address] [facility]. Department [place] [address] * Differential, auto (10/01/2024 9:50 PM CDT) Neutrophil abs 4.22 1.50 - 6.50 K/cumm Imm gran abs 0.04 0.00 - 0.10 K/cumm [facility] Lymphocyte abs 0.86 0.80 - 3.30 K/cumm [facility] Monocyte abs 0.76 0.20 - 0.80 K/cumm [facility] Eosinophil abs 0.07 0.00 - 0.50 K/cumm [facility] Basophil abs 0.04 0.00 - 0.10 K/cumm [facility] Neutrophil pct 70.3 % [facility] Comment: Interpretive Data Percent cell count reference ranges are not reported, since discordance with absolute values may lead to misinterpretation of CBC data. Current Interpretive Data was last revised on 2017. Imm gran pct 0.7 % [facility] Comment: Interpretive Data Percent cell count reference ranges are not reported, since discordance with absolute values may lead to misinterpretation of CBC data. Current Interpretive Data was last revised on 2017. Lymphocyte pct 14.4 % [facility] Comment: Interpretive Data Percent cell count reference ranges are not reported, since discordance with absolute values may lead to misinterpretation of CBC data. Current Interpretive Data was last revised on 2017. Monocyte pct 12.7 % [facility] Comment: Interpretive Data Percent cell count reference ranges are not reported, since discordance with absolute values may lead to misinterpretation of CBC data. Current Interpretive Data was last revised on 2017. Eosinophil pct 1.2 % [facility] Comment: Interpretive Data Percent cell count reference ranges are not reported, since discordance with absolute values may lead to misinterpretation of CBC data. Current Interpretive Data was last revised on 2017. Basophil pct 0.7 % [facility] Comment: Interpretive Data Percent cell count reference ranges are not reported, since discordance with absolute values may lead to misinterpretation of CBC data. Current Interpretive Data was last revised on 2017. Blood 10/01/2024 9:50 PM CDT 10/01/2024 9:55 PM CDT Ervin Morin MD LAB BLOOD ORDERABLES Final R esult [facility] [address] [facility]. [place] [address] * (ABNORMAL) CBC with auto differential (10/01/2024 9:50 PM CDT) WBC 5.99 3.80 - 9.90 K/cumm Hgb 11.4(L) 11.9 - 15.5 g/dL [facility] Hct 35.0(L) 35.6 - 45.5 % [facility] Plt 294 150 - 400 K/cumm [facility] MPV 10.0 9.1 - 12.3 fL [facility] [facility] RBC 3.71(L) 3.90 - 5.20 M/cumm [facility] MCV 94.3 81.3 - 96.4 fL [facility] MCH 30.7 27.1 - 33.3 pg [facility] MCHC 32.6 32.3 - 35.7 g/dL [facility] RDW CV 13.2 11.1 - 14.9 % [facility] RDW SD 45.2 35.7 - 48.1 fL [facility] NRBC abs 0.00 0.00 - 0.01 K/cumm [facility] Blood 10/01/2024 9:50 PM CDT 10/01/2024 9:55 PM CDT Ervin Morin MD LAB BLOOD ORDERABLES Final R esult [facility] [address] [facility]. Department [place] [address] * (ABNORMAL) Basic metabolic panel (10/01/2024 9:50 PM CDT) Sodium 136 135 - 145 mmol/L Potassium, pl 3.3 3.3 - 4.9 mmol/L [facility] Chloride 97 97 - 110 mmol/L [facility] CO2 23 22 - 32 mmol/L [facility] Anion gap 16(H) 2 - 15 mmol/L [facility] BUN 19 6 - 25 mg/dL [facility] Creatinine 0.90 0.60 - 1.10 mg/dL [facility] Glucose 116 70 - 199 mg/dL [facility] Comment: Interpretive Data Fasting glucose >/= 126 [...] 2022. Calcium 9.3 8.5 - 10.3 mg/dL [facility] Blood 10/01/2024 9:50 PM CDT 10/01/2024 9:55 PM CDT Ervin Morin MD LAB BLOOD ORDERABLES Final R esult [facility] [address] [facility]. [place] [address] * Hepatitis C antibody (11/19/2021 2:35 PM CDT) Hep C Ab Nonreactive Nonreactive [facility] Comment:Antibodies to HCV no t detected. Does NOT exclude the possibility of recent exposure to HCV. Blood 11/19/2021 2:35 PM CDT 11/19/2021 4:08 PM CDT us Yumiko Shaffer MD LAB MICROBIOLOGY - GENERAL O RDERABLES Edited Result - Final Performing Organization Address [facility] Co de Phone Number [facility] Department [place] [address] from Last 3 Months or Most Recently Relevant to Health Maintenance Insurance [employer] [facility] [employer] [facility] MEDICARE MEDICARE [employer] MEDICARE [employer] Advance Directives For more information, please contact: [phone] * Full Code (Latest Code Status on File) Date Activated Date Inactivated Comments 03/05/2021 8:14 AM 03/10/2021 4:43 PM Care Teams Bakery Technician Relationship Specialty Start Date End Date Noris Limon NP [facility] [address] [address] PCP - General Internal Medicine 10/01/24 Yumiko Shaffer MD Consulting Physician Internal Medicine 02/19/23
--- OUTSIDE RECORDS SUMMARY | 2024-12-09 18:19 | XMS_ITS | Clinical Summary ---
Author Organization [facility] Care Team Providers Care Demand Generator Manager Name Role Phone Unavailable Primary Care Provider [...]
--- NOTE | 2024-12-09 18:48 | ED.ABDPAIN ---
HPI - Abdominal Pain General Chief Complaint: Abdominal Pain <TREVOR Perez Last Filed: 12/09/24 22:59> Stated Complaint: abd pain <TREVOR Perez Last Filed: 12/09/24 22:59> Time Seen by Provider: 12/09/24 18:30 <TREVOR Perez Last Filed: 12/09/24 22:59> Source: patient and old records reviewed <TREVOR Perez Last Filed: 12/09/24 22:59> Mode of arrival: ambulatory <TREVOR Perez Last Filed: 12/09/24 22:59> Limitations: no limitations <TREVOR Perez Last Filed: 12/09/24 22:59> History of Present Illness HPI narrative: Patient is a 74 y/o female who presents to the ED with c/o abd pain. Patient reports having diffuse abdominal pain since Friday night. Reports pain initially was more diffuse, but has localized more to her left lower quadrant today. Became more severe. She has been seen in the ED 3 times since the onset of this pain. Was seen here 12/07, at which point CT scan of the abdomen/pelvis showed panniculitis versus omental infarct. Patient reports nausea, vomiting, difficulty keeping down food or drink. Reports last bowel movement was yesterday after taking several laxatives and was mostly consistent of water. Is reports intermittent fevers, mostly at night, last fever 101.8F last night. Denies fever today. Denies previous history of bowel obstruction. Hx of hysterectomy and hiatal hernia repair in the past. States she was recently started on Simponi for RA 2 weeks ago (weekly injection). <TREVOR Perez Last Filed: 12/09/24 22:59> Related Data Home Medications: Home Medications ?Medication ?Instructions ?Recorded ?Confirmed ?Last Taken ?Type hydroxychloroquine 200 mg tablet mg PO 04/20/24 10/04/24 Unknown History <TREVOR Perez Last Filed: 12/09/24 22:59> Allergies/Adverse Reactions: Allergies Allergy/AdvReac Type Severity Reaction Status Date / Time erythromycin base Allergy Intermediate Nausea Verified 12/09/24 23:36 sulfamethizole Allergy Intermediate upset Verified 12/09/24 23:36 stomach adalimumab AdvReac Intermediate HIVES Verified 12/09/24 23:36 <Apoorva Jang PA-C - Last Filed: 12/09/24 22:59> Review of Systems Review of Systems: All systems reviewed & are unremarkable except as noted in HPI. <Apoorva Jang PA-C - Last Filed: 12/09/24 22:59> All systems reviewed & are unremarkable except as noted in HPI and below <Apoorva Jang PA-C - Last Filed: 12/09/24 22:59> [facility] Past Medical History Medical History: Medical History GERD (gastroesophageal reflux disease) Rheumatoid arthritis <Apoorva Jang PA-C - Last Filed: 12/09/24 22:59> Surgical History Surgical History: Surgical History History of repair of hiatal hernia (~03/08/21) H/O: hysterectomy <Apoorva Jang PA-C - Last Filed: 12/09/24 22:59> Family History Family History: Family History Father Hypertension Family history of coronary artery disease, Onset Age: 82 Family history of malignant neoplasm of breast in first degree relative Patient's father is <Apoorva Jang PA-C - Last Filed: 12/09/24 22:59> Social History Social History: Social History Years smoked: 35 Smoking status: Former smoker Second hand tobacco smoke exposure: No Smoking end date: 02/18/08 Alcohol intake: current Drinks per week: 1 Substance use: former Substance use type: marijuana Lack of Transportation: No Lack of Food: Never True Current Housing: I Have Housing Concerned About Future Housing: No Difficulty Paying Gas/Electric Bills: No Difficulty Paying for Meds: No Currently Unemployed: No Education: High School Diploma/GED Difficulty w/ Childcare or Family Care: No Gender identity (if verbalized by the patient): Female Spiritual care concerns: No <Apoorva Jang PA-C - Last Filed: 12/09/24 22:59> Exam Narrative: GENERAL: Elderly, mildly uncomfortable appearing, non-toxic, in no acute distress. HEAD: Normocephalic, atraumatic. RESPIRATORY: Airway patent, respirations nonlabored. Clear to auscultation bilaterally, no rales, rhonchi, wheezing. CARDIOVASCULAR: Regular rate and rhythm without murmurs, rubs, or gallops. ABDOMINAL: Abdomen is somewhat distended/ slightly firm, TTP in LLQ. Slightly hypoactive BS. Some hyperpigmentation of skin to R lower abdomen, almost appears slightly bruised. MUSCULOSKELETAL: Moves all extremities. No gross deformities. SKIN: Warm, dry, normal color. NEURO: A&O X3. Speech clear. Cranial nerves II-XII grossly intact. Steady gait. No ataxic movements. PSYCHIATRIC: Appropriate mood and affect. Normal interaction. <Apoorva Jang PA-C - Last Filed: 12/09/24 22:59> Course SHOT CORE DRILL OPERATOR/PA Physician Supervision This visit was performed by both a physician and an APC. I performed all aspects of the MDM as documented. <Fletcher Prescott MD - Last Filed: 12/09/24 23:38> Vital Signs Vital signs: Vital Signs Temperature 37.1 C 12/09/24 18:23 Pulse Rate 85 12/09/24 18:23 Respiratory Rate 17 12/09/24 18:23 Blood Pressure 115/59 L 12/09/24 18:23 Pulse Oximetry 97 12/09/24 18:23 Oxygen Delivery Room Air 12/09/24 18:23 Temperature 36.6 C 12/09/24 23:19 Pulse Rate 82 12/09/24 23:19 Respiratory Rate 14 12/09/24 23:19 Blood Pressure 116/61 12/09/24 23:19 Pulse Oximetry 97 12/09/24 23:19 Oxygen Delivery Room Air 12/09/24 18:23 <Apoorva Jang PA-C - Last Filed: 12/09/24 22:59> Vital Signs Temperature 37.1 C 12/09/24 18:23 Pulse Rate 85 12/09/24 18:23 Respiratory Rate 17 12/09/24 18:23 Blood Pressure 115/59 L 12/09/24 18:23 Pulse Oximetry 97 12/09/24 18:23 Oxygen Delivery Room Air 12/09/24 18:23 Temperature 36.6 C 12/09/24 23:19 Pulse Rate 82 12/09/24 23:19 Respiratory Rate 14 12/09/24 23:19 Blood Pressure 116/61 12/09/24 23:19 Pulse Oximetry 97 12/09/24 23:19 Oxygen Delivery Room Air 12/09/24 18:23 <Fletcher Prescott MD - Last Filed: 12/09/24 23:38> MDM - Abdominal Pain MDM Narrative Medical decision making narrative: Patient presented to ED with left lower abdominal pain, has been ongoing since Friday night. ED visit 2 days ago showed omental infarct versus panniculitis. Patient had symptomatic improvement in the ED and was ultimately discharged home. Reports pain has continued to worsen. Vital signs are stable here today. Patient is afebrile, but does report fevers recently at home. Abdominal exam with focal tenderness in left lower quadrant, somewhat firm/distended with some discoloration to right lower abdomen. Laboratory studies with leukocytosis of 18.9. This appears similar to records 2 days ago. Neutrophil predominance. No bandemia. Stable H&H. CMP with hypokalemia at 3.0. IV replacement ordered. Mag within normal range. Stable kidney function. Lactic acid WNL 1.7. CT scan of abdomen/pelvis was obtained and showing evidence of small-bowel obstruction. Transition point in the mid lower abdomen. Consistent with clinical picture. Personal review images does show a large amount of fluid/material in the stomach. NG tube placed. Confirmed via XR Discussed case with Dr. Sykes, general surgery, will consult. Agrees w/ plan for NG tube. Recommended abx. Started on zosyn. Discussed case with Dr. Echeverria, hospitalist, accepted patient for admission. Patient to telemetry for electrolyte monitoring. <Apoorva Jang PA-C - Last Filed: 12/09/24 22:59> Medical Records Attestation: I reviewed the patient's medical records. <Apoorva Jang PA-C - Last Filed: 12/09/24 22:59> Lab Data Attestation: I reviewed the patient's lab results. <Apoorva Jang PA-C - Last Filed: 12/09/24 22:59> Result diagrams: 12/09/24 18:46 12/09/24 20:10 <TREVOR Perez Last Filed: 12/09/24 22:59> Labs: Lab Results 12/09/24 12/09/24 12/09/24 Range/Units 18:46 20:01 20:10 WBC 18.9 H (4.5-10.0) K/mm3 RBC 3.72 L (4.2-5.4) M/mm3 Hgb 11.7 L (12.0-15.0) g/dL Hct 36.1 L (37.0-47.0) % MCV 97.0 (80-100) fl MCH 31.5 (26-34) pg MCHC 32.4 (32-36) g/dl RDW 13.5 (11.5-14.5) % Plt Count 221 (150-375) k/mm3 MPV 11.4 H (7.4-10.4) fl Immature Gran % (Auto) 0.6 H (0-0.5) % Neut % (Auto) 77.6 H (45.5-73.1) % Lymph % (Auto) 10.5 L (18.3-44.2) % [place] % (Auto) 10.1 H (2.6-8.5) % Eos % (Auto) 1.0 (0-4.4) % Baso % (Auto) 0.2 (0.2-1.2) % Lymph # (Auto) 1.98 (0.9-3.2) K/mm3 [place] # (Auto) 1.9 H (0.1-0.6) K/mm3 Eos # (Auto) 0.2 (0-0.3) K/mm3 Baso # (Auto) 0.0 (0.0-0.1) K/mm3 Abs Immat Gran (auto) 0.11 H (0.00-0.031) K/mm3 Absolute Neuts (auto) 14.6 H (1.3-6.7) K/mm3 Absolute Nucleated RBC 0.000 (0.0-0.012) K/mm3 Nucleated RBC % 0.0 (0.0-0.2) % Sodium 134 L (137-145) mmol/L Potassium 3.0 L (3.4-5.0) mmol/L Chloride 103 (98-107) mmol/L Carbon Dioxide 22 (22-30) mmol/L Anion Gap 9 (4-12) mmol/L BUN 19 H (7-17) mg/dL Creatinine 0.71 0.80 (0.7-1.0) mg/dL Estim Creat Clear Calc Not Reportable Not Reportable Estimated GFR > 60 > 60 (59 - ) Glucose 118 H (65-110) mg/dL Lactic Acid 1.7 (0.7-2.0) mmol/L Calcium 9.0 (8.4-10.2) mg/dL Magnesium 2.2 (1.6-2.3) mg/dL Total Bilirubin 0.9 (0.2-1.3) mg/dL AST 36 (14-36) U/L ALT 18 (6-35) U/L Alkaline Phosphatase 87 (38-126) U/L Total Protein 7.4 (6.3-8.2) g/dL Albumin 3.8 (3.5-5.1) g/dL Lipase 302 H (23-300) U/L Urine Color (Yellow) Urine Appearance (Clear) Urine pH (5.0-9.0) Ur Specific [place] (1.001-1.035) Urine Protein (Negative) mg/dL Urine Glucose (UA) (Negative) mg/dL Urine Ketones (Negative) mg/dL Ur Blood (Man) (Negative) Urine Nitrate (Negative) Urine Bilirubin (Negative) Urine Urobilinogen (<2.0) mg/dL Leukocyte Esterase Rfl (Negative) JIM/UL Urine RBC (0-2) /hpf Urine WBC (0-3) /hpf Ur Squamous Epith Cells (Few) /hpf Urine Bacteria /hpf Urine Casts 12/09/24 Range/Units 21:33 WBC (4.5-10.0) K/mm3 RBC (4.2-5.4) M/mm3 Hgb (12.0-15.0) g/dL Hct (37.0-47.0) % MCV (80-100) fl MCH (26-34) pg MCHC (32-36) g/dl RDW (11.5-14.5) % Plt Count (150-375) k/mm3 MPV (7.4-10.4) fl Immature Gran % (Auto) (0-0.5) % Neut % (Auto) (45.5-73.1) % Lymph % (Auto) (18.3-44.2) % [place] % (Auto) (2.6-8.5) % Eos % (Auto) (0-4.4) % Baso % (Auto) (0.2-1.2) % Lymph # (Auto) (0.9-3.2) K/mm3 [place] # (Auto) (0.1-0.6) K/mm3 Eos # (Auto) (0-0.3) K/mm3 Baso # (Auto) (0.0-0.1) K/mm3 Abs Immat Gran (auto) (0.00-0.031) K/mm3 Absolute Neuts (auto) (1.3-6.7) K/mm3 Absolute Nucleated RBC (0.0-0.012) K/mm3 Nucleated RBC % (0.0-0.2) % Sodium (137-145) mmol/L Potassium (3.4-5.0) mmol/L Chloride (98-107) mmol/L Carbon Dioxide (22-30) mmol/L Anion Gap (4-12) mmol/L BUN (7-17) mg/dL Creatinine (0.7-1.0) mg/dL Estim Creat Clear Calc Estimated GFR (59 - ) Glucose (65-110) mg/dL Lactic Acid (0.7-2.0) mmol/L Calcium (8.4-10.2) mg/dL Magnesium (1.6-2.3) mg/dL Total Bilirubin (0.2-1.3) mg/dL AST (14-36) U/L ALT (6-35) U/L Alkaline Phosphatase (38-126) U/L Total Protein (6.3-8.2) g/dL Albumin (3.5-5.1) g/dL Lipase (23-300) U/L Urine Color Dark yellow (Yellow) Urine Appearance Clear (Clear) Urine pH 5.5 (5.0-9.0) Ur Specific [place] 1.036 H (1.001-1.035) Urine Protein 1+ H (Negative) mg/dL Urine Glucose (UA) Negative (Negative) mg/dL Urine Ketones Trace H (Negative) mg/dL Ur Blood (Man) Negative (Negative) Urine Nitrate Negative (Negative) Urine Bilirubin Negative (Negative) Urine Urobilinogen 1.0 (<2.0) mg/dL Leukocyte Esterase Rfl Negative (Negative) JIM/UL Urine RBC 0-2 (0-2) /hpf Urine WBC 0-5 (0-3) /hpf Ur Squamous Epith Cells None seen (Few) /hpf Urine Bacteria None seen /hpf Urine Casts 0-2 <Apoorva Jang PA-C - Last Filed: 12/09/24 22:59> Lab Results 12/09/24 12/09/24 12/09/24 Range/Units 18:46 20:01 20:10 WBC 18.9 H (4.5-10.0) K/mm3 RBC 3.72 L (4.2-5.4) M/mm3 Hgb 11.7 L (12.0-15.0) g/dL Hct 36.1 L (37.0-47.0) % MCV 97.0 (80-100) fl MCH 31.5 (26-34) pg MCHC 32.4 (32-36) g/dl RDW 13.5 (11.5-14.5) % Plt Count 221 (150-375) k/mm3 MPV 11.4 H (7.4-10.4) fl Immature Gran % (Auto) 0.6 H (0-0.5) % Neut % (Auto) 77.6 H (45.5-73.1) % Lymph % (Auto) 10.5 L (18.3-44.2) % [place] % (Auto) 10.1 H (2.6-8.5) % Eos % (Auto) 1.0 (0-4.4) % Baso % (Auto) 0.2 (0.2-1.2) % Lymph # (Auto) 1.98 (0.9-3.2) K/mm3 [place] # (Auto) 1.9 H (0.1-0.6) K/mm3 Eos # (Auto) 0.2 (0-0.3) K/mm3 Baso # (Auto) 0.0 (0.0-0.1) K/mm3 Abs Immat Gran (auto) 0.11 H (0.00-0.031) K/mm3 Absolute Neuts (auto) 14.6 H (1.3-6.7) K/mm3 Absolute Nucleated RBC 0.000 (0.0-0.012) K/mm3 Nucleated RBC % 0.0 (0.0-0.2) % Sodium 134 L (137-145) mmol/L Potassium 3.0 L (3.4-5.0) mmol/L Chloride 103 (98-107) mmol/L Carbon Dioxide 22 (22-30) mmol/L Anion Gap 9 (4-12) mmol/L BUN 19 H (7-17) mg/dL Creatinine 0.71 0.80 (0.7-1.0) mg/dL Estim Creat Clear Calc Not Reportable Not Reportable Estimated GFR > 60 > 60 (59 - ) Glucose 118 H (65-110) mg/dL Lactic Acid 1.7 (0.7-2.0) mmol/L Calcium 9.0 (8.4-10.2) mg/dL Magnesium 2.2 (1.6-2.3) mg/dL Total Bilirubin 0.9 (0.2-1.3) mg/dL AST 36 (14-36) U/L ALT 18 (6-35) U/L Alkaline Phosphatase 87 (38-126) U/L Total Protein 7.4 (6.3-8.2) g/dL Albumin 3.8 (3.5-5.1) g/dL Lipase 302 H (23-300) U/L Urine Color (Yellow) Urine Appearance (Clear) Urine pH (5.0-9.0) Ur Specific [place] (1.001-1.035) Urine Protein (Negative) mg/dL Urine Glucose (UA) (Negative) mg/dL Urine Ketones (Negative) mg/dL Ur Blood (Man) (Negative) Urine Nitrate (Negative) Urine Bilirubin (Negative) Urine Urobilinogen (<2.0) mg/dL Leukocyte Esterase Rfl (Negative) JIM/UL Urine RBC (0-2) /hpf Urine WBC (0-3) /hpf Ur Squamous Epith Cells (Few) /hpf Urine Bacteria /hpf Urine Casts // Range/Units 21:33 WBC (4.5-10.0) K/mm3 RBC (4.2-5.4) M/mm3 Hgb (12.0-15.0) g/dL Hct (37.0-47.0) % MCV (80-100) fl MCH (26-34) pg MCHC (32-36) g/dl RDW (11.5-14.5) % Plt Count (150-375) k/mm3 MPV (7.4-10.4) fl Immature Gran % (Auto) (0-0.5) % Neut % (Auto) (45.5-73.1) % Lymph % (Auto) (18.3-44.2) % [place] % (Auto) (2.6-8.5) % Eos % (Auto) (0-4.4) % Baso % (Auto) (0.2-1.2) % Lymph # (Auto) (0.9-3.2) K/mm3 [place] # (Auto) (0.1-0.6) K/mm3 Eos # (Auto) (0-0.3) K/mm3 Baso # (Auto) (0.0-0.1) K/mm3 Abs Immat Gran (auto) (0.00-0.031) K/mm3 Absolute Neuts (auto) (1.3-6.7) K/mm3 Absolute Nucleated RBC (0.0-0.012) K/mm3 Nucleated RBC % (0.0-0.2) % Sodium (137-145) mmol/L Potassium (3.4-5.0) mmol/L Chloride (98-107) mmol/L Carbon Dioxide (22-30) mmol/L Anion Gap (4-12) mmol/L BUN (7-17) mg/dL Creatinine (0.7-1.0) mg/dL Estim Creat Clear Calc Estimated GFR (59 - ) Glucose (65-110) mg/dL Lactic Acid (0.7-2.0) mmol/L Calcium (8.4-10.2) mg/dL Magnesium (1.6-2.3) mg/dL Total Bilirubin (0.2-1.3) mg/dL AST (14-36) U/L ALT (6-35) U/L Alkaline Phosphatase (38-126) U/L Total Protein (6.3-8.2) g/dL Albumin (3.5-5.1) g/dL Lipase (23-300) U/L Urine Color Dark yellow (Yellow) Urine Appearance Clear (Clear) Urine pH 5.5 (5.0-9.0) Ur Specific [place] 1.036 H (1.001-1.035) Urine Protein 1+ H (Negative) mg/dL Urine Glucose (UA) Negative (Negative) mg/dL Urine Ketones Trace H (Negative) mg/dL Ur Blood (Man) Negative (Negative) Urine Nitrate Negative (Negative) Urine Bilirubin Negative (Negative) Urine Urobilinogen 1.0 (<2.0) mg/dL Leukocyte Esterase Rfl Negative (Negative) JIM/UL Urine RBC 0-2 (0-2) /hpf Urine WBC 0-5 (0-3) /hpf Ur Squamous Epith Cells None seen (Few) /hpf Urine Bacteria None seen /hpf Urine Casts 0-2 <Fletcher Prescott MD - Last Filed: 12/09/24 23:38> Imaging Data Attestation: I personally reviewed and interpreted this imaging study as follows: <Apoorva Jang PA-C - Last Filed: 12/09/24 22:59> Radiologist's impression: ITS Impressions Abdomen/Pelvis CT 12/09/24 20:32 IMPRESSION: Findings suggestive of a small bowel obstruction. All CT scans at this facility are performed using low dose modulation techniques as appropriate to perform exam including the following: automated exposure control; use of iterative reconstruction technique; adjustment of the mA and/or kV according to patient size (this includes techniques or standardized protocols for targeted exams where dose is matched to indication/reason for exam). Abdomen X-Ray 12/09/24 21:27 IMPRESSION: Enteric tube is in appropriate position within the stomach. Diffuse gaseous distention of the bowel loops suggestive of a bowel obstruction is noted. <Apoorva Jang PA-C - Last Filed: 12/09/24 22:59> ITS Impressions Abdomen/Pelvis CT 12/09/24 20:32 IMPRESSION: Findings suggestive of a small bowel obstruction. All CT scans at this facility are performed using low dose modulation techniques as appropriate to perform exam including the following: automated exposure control; use of iterative reconstruction technique; adjustment of the mA and/or kV according to patient size (this includes techniques or standardized protocols for targeted exams where dose is matched to indication/reason for exam). Abdomen X-Ray 12/09/24 21:27 IMPRESSION: Enteric tube is in appropriate position within the stomach. Diffuse gaseous distention of the bowel loops suggestive of a bowel obstruction is noted. <Fletcher Prescott MD - Last Filed: 12/09/24 23:38> Discharge Plan Discharge Clinical Impression: Small bowel obstruction, Hypokalemia <Apoorva Jang PA-C - Last Filed: 12/09/24 22:59> Patient Disposition: Still a Patient <Apoorva Jang PA-C - Last Filed: 12/09/24 22:59> Condition: Stable <Apoorva Jang PA-C - Last Filed: 12/09/24 22:59>
[2024-12-09 18:51] LABS: Hematocrit 36.1 % (37.0-47.0); Hemoglobin 11.7 g/dL (12.0-15.0); Immature Granulocyte Percent A 0.6 % (0-0.5); Lymphocytes Absolute Auto 1.98 K/mm3 (0.9-3.2); Mean Corpuscular HGB Conc 32.4 g/dl (32-36); Mean Corpuscular Hemoglobin 31.5 pg (26-34); Mean Corpuscular Volume 97.0 fl (80-100); Nucleated Red Blood Cells Absolute Auto 0.000 K/mm3 (0.0-0.012); Nucleated Red Blood Cells Perc 0.0 % (0.0-0.2); Platelet Count Result 221 k/mm3 (150-375); Red Blood Count 3.72 M/mm3 (4.2-5.4); White Blood Count 18.9 K/mm3 (4.5-10.0)
[2024-12-09] MEDS: SODIUM CHLORIDE 0.9% IV 1,000 ML 999 ML IV CONT (18:51)
[2024-12-09] MEDS: MORPHINE SULFATE (*CRX) 4 MG/ML INJ IV PUSH ×2 (18:51→21:51)
[2024-12-09] MEDS: ONDANSETRON INJ 4 MG/2 ML VIAL IV PUSH (18:52)
--- NOTE | 2024-12-09 19:01 | PC.NURSE ---
Pt aware that urine sample is needed. Pt unable to give sample at this time. Pt notified to press call light when she feels like she can go.
--- OUTSIDE RECORDS SUMMARY | 2024-12-09 19:32 | XMS_ITS | Encounter Summary ---
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
--- OUTSIDE RECORDS SUMMARY | 2024-12-09 19:32 | XMS_ITS | Encounter Summary ---
Author Organization [facility] Address [address] [place] [address] Phone Care Team Providers Care Landman Name Role Phone Beatriz Nuñez MD Primary Care Provider [phone] Yumiko Shaffer MD Unavailable [phone] Noris Limon NP Primary Care Provider [phone] Encounter Details Date Type Department Care Team (Late st Contact Info) Description 06/30/2017 Orders Only [facility] ProviderEddie MD [facility] [place] [address] Social History Tobacco Use Types Packs/Day Years Used Date Smoking Tobacco: Former Smokeless Tobacco: Never Comments:Smoking History Pac ks/day: 0.75 Packs Alcohol Use Standard Drinks/Week Comments Yes 0 (1 standard drink = 0.6 oz pur e alcohol) Comments Unknown Sex and Gender Information Value Date Recorded Sex Assigned at Not on file 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 Gender Identity Not on file Sexual Orientation [...] COVID: Suspected 03/05/2021 03/05/2021 03/05/2021 2:35 AM RACE STARTER COVID: Suspected 10/01/2024 10/01/2024 10/01/2024 10:43 PM CDT COVID: Suspected 10/01/2024 10/01/2024 10/01/2024 11:34 PM CDT documented as of this encounter Care Teams Landman Relationship Specialty Start Date End Date Beatriz Nuñez MD [address] [place] [address] PCP - General 05/20/16 09/30/24 Noris Limon NP [address] [place] [address] [place] [address] PCP - General Internal Medicine 10/01/24 Yumiko Shaffer MD [address] [place] [address] Consulting Physician Internal Medicine 02/19/23 documented as of this encounter
--- OUTSIDE RECORDS SUMMARY | 2024-12-09 19:32 | XMS_ITS | Encounter Summary ---
Author Organization [facility] Address [address] [place] [address] Care Team Providers Care Field Laborer Name Role Phone Beatriz Nuñez MD Primary Care Provider [phone] Encounter Details Date Type Department Care Team (Late st Contact Info) Description 08/06/2019 Lab Requisition [facility] [address] [place] [address] Lew Cedeno MD [facility] [place] [address] Social History Tobacco Use Types [...] AM CDT) Case Report Dermatopathology Report Case: [id number] Authorizing Provider: Lew Cedeno MD Collected: 08/04/2019 12:00 AM Ordering Location: [facility] Received: 08/06/2019 06:36 [...] characteristic determined by the Dermatopathology Laboratory at [facility], directed by Dr. Wayne Vasques. These tests need not be, and therefore are not, approved by the [place] Food and Drug Administration. The tests are used for clinical purposes. Billing Codes Specimen Charges Stain Charges 53460 1 0 6:56 PM CDT DERMATOPATHOLOGY LABORATORY Embedded Images 0 6:56 PM CDT DERMATOPATHOLOGY LABORATORY Pathology/Cytolog y TISSUE SPECIMEN FROM SKIN / Unknown 08/04/2019 08/06/2019 6:36 AM CDT us Lew Cedeno MD LAB - PATHOLOGY/CYTOLOGY ORDERAB LES Final Result DERMATOPATHOLOGY LABORATORY [facility] - Department of Dermatology Polygraph Technician Center/[place] [address], [facility] [phone] documented in this encounter Visit Diagnoses Not on filedocumented in this encounter Care Teams Field Laborer Relationship Specialty Start Date End Date Beatriz Nuñez MD [address] [place] [id number] PCP - General 05/01/18 documented as of this encounter
--- OUTSIDE RECORDS SUMMARY | 2024-12-09 19:32 | XMS_ITS | Clinical Summary ---
Author Organization [facility] Address [address] [place] [address] Care Team Providers Care Product Design Specialist Name Role Phone Beatriz Nuñez MD Primary Care Provider Source Comments [facility],non-owned Affiliates and Associated Physician Practices is amultiple site organization consisting of ambulatory clinics and hospital sitesin [place], [place], [place] and [place]. This disclosure is being madepursuant to the Care Everywhere program and may not contain all informatio navailable regarding this patient. Last updated 17.[facility] Social History Tobacco Use Types Packs/Day Years [...] complete this topic Insurance MEDICARE Care Teams Product Design Specialist Relationship Specialty Start Date End Date Beatriz Nuñez MD [address] [place] [address] PCP - General 05/01/18
--- OUTSIDE RECORDS SUMMARY | 2024-12-09 19:32 | XMS_ITS | Clinical Summary ---
Author Organization [facility] Address [address] [place] [id number] Care Team Providers Care Video Game Engineer Name Role Phone Yumiko Shaffer MD Unavailable [phone] Noris Limon NP Primary Care Provider [phone] Allergies Active Allergy Reactions Criticality Noted Date [...] 03/07/2021 Assessment & Plan (03/08/2021 7:50 AM PLASTICS TOOLING ENGINEER): Cr upon admission was 1.37 in the setting of dehydration 2/2 vomiting. - Cr downtrend to normal with IVF resuscitation and decompression of HH with NGT - continue mIVF Abdominal pain 03/05/2021 Hiatal hernia 03/05/2021 Assessment & Plan (03/08/2021 7:58 AM PLASTICS TOOLING ENGINEER): Per CT scan: Large hiatus hernia with development of organoaxial gastric volvulus with likely associated gastric outlet obstruction secondary to the hernia and volvulus. No findings to suggest ischemia at this time. - NGT to LIWS - NPO except ice chips - mIVF - OR today for Lap HH repair - DVT PPX Hypokalemia 03/05/2021 Assessment & Plan (03/08/2021 7:50 AM PLASTICS TOOLING ENGINEER): - monitor Osteoporosis 06/12/2020 Advice given about 2019 novel coronavirus by tel ephone 06/18/2019 Assessment & Plan (06/18/2019 7:16 PM CDT): The full impact of autoimmune disease and immunomodulatory medications on susceptibility and complications of coronavirus disease is not yet studied. Because we have biofuels technology development manager with this new virus we do not [...] this is a fast-moving issue and the [facility] is providing regular updates as the course and extent of the epidemic is monitored. You may keep up to date at the CDC website: www.coronavirus.gov You may also find more information relevant to your questions at the [employer] webpage: arthritis.org. Click on the Coronavirus banner. It is imperative that you adhere to the jegf-xs-cvhh orders issued for your community, especially in view of your potentially immunocompromised status. Feel free to reach out to us if you have additional questions after you review this information. You may review the current [place] [employer] Covid-19 clinical guidance for Patients with Rheumatic Diseases if you copy and paste the link below into your web browser: [email or web address]-Jbwz curtis-P snvqyxz-rcfr-Uwulbeoko-Diseases.pdf Encounter for long-term (cur rent) use of high-risk medication 10/28/2016 Assessment & Plan (04/10/2021 8:11 PM PLASTICS TOOLING ENGINEER): Long-term use of high-risk medication requiring regular monitoring. Labs ordered, no s/s of med tox or infection. Encouraged to work with PCP to make sure all recommended cancer screens and vaccinations are complete. Avoid live-vaccines unless reviewed with mechanics supervisor first. HCQ eye exams every 6 months. [...] month. Assessment & Plan (01/26/2019 11:28 AM PLASTICS TOOLING ENGINEER): Patient on immunosuppressive medications requiring periodic lab monitoring for drug safety. Update lab as per orders written. Assessment & Plan (08/04/2018 2:21 PM CDT): Patient on immunosuppressive medications requiring periodic lab monitoring for drug safety. Update lab as per orders written. Assessment & Plan (02/25/2018 12:12 PM PLASTICS TOOLING ENGINEER): Patient on immunosuppressive medications requiring periodic lab [...] written. Assessment & Plan (02/26/2017 12:01 PM PLASTICS TOOLING ENGINEER): Patient on immunosuppressive medications requiring periodic lab monitoring for drug safety. Update lab as per orders written. Assessment & Plan (10/28/2016 3:04 PM CDT): Patient on immunosuppressive medications requiring periodic lab monitoring for drug safety. Update lab as per orders written. BMI 22.0-22.9, adult 10/28/2016 Assessment & Plan (01/26/2019 11:28 AM PLASTICS TOOLING ENGINEER): BMI satisfactory. A healthy diet and routine exercise regimen are frye to weight management. Assessment & Plan (08/04/2018 2:21 PM CDT): BMI satisfactory. A healthy diet and routine exercise regimen are frye to weight management. Assessment & Plan (02/25/2018 12:12 PM PLASTICS TOOLING ENGINEER): Weight loss noted. Good work! BMI satisfactory. A healthy diet and routine exercise regimen are frye to weight management. Assessment & Plan (10/28/2017 5:36 PM CDT): BMI normal. Continue healthy diet and exercise regimen. Assessment & Plan (06/30/2017 9:49 AM CDT): BMI normal. Continue healthy diet and exercise regimen. Assessment & Plan (02/26/2017 12:00 PM PLASTICS TOOLING ENGINEER): BMI normal. Continue healthy diet and exercise regimen. Rheumatoid arthritis involvi ng multiple sites with positive rheumatoid factor ([facility]) 11/04/2013 Overview (11/24/2020): Images from the original note were not included. 12/06-Rheum Hx: In 2000 developed pain in toes, neck and shoulders, hands and knees, Dx with RA, started on plaquenil, and prednisone, then switched methotrexate (elevated LFTs), remicade (was on until insurance switched her to cqolwtyacx-5-8 yrs), then was on Humira (helped for years, but then broke out in urticaria and had to stop), then now has been on Orencia since, initially on SQ injection then infusion. Assessment & Plan (04/10/2021 8:12 PM PLASTICS TOOLING ENGINEER): -Currently stable on Orencia 500 mg IV every 4 weeks, plaquenil 200 mg bid ttoday she has no active synovitis, primarily OA changes in hands. Continue plaquenil with eye exam every 6 mo. Assessment & Plan (03/05/2021 8:16 AM PLASTICS TOOLING ENGINEER): Holding home dose of Plaquenil and prednisone [...] same. Assessment & Plan (01/26/2019 11:27 AM PLASTICS TOOLING ENGINEER): RA clinically stable on Orencia regimen. No [...] prednisone. Assessment & Plan (02/25/2018 12:12 PM PLASTICS TOOLING ENGINEER): RA with recent flare (Rapid3 6.7) associated [...] all medications you are currently taking, including cmbx-njr-okvfbbc medications, supplements, and herbal therapies. Also, tell [...] Param Manuel MD and reviewed by the [place] [employer] Committee on Communications and Marketing. This information is provided for general education only. Individuals should consult a qualified health care provider for professional medical advice, diagnosis and treatment of a medical or health condition. 2017 [place] [employer] - See more at: https://www.rheumatology.org/I-Am-A/Patient-Caregiver/Treatments/Rituximab-Ritux dee dee-Ne bThera#[email or web address] Assessment & Plan (10/28/2017 9:43 PM CDT): [...] exhausted. Assessment & Plan (02/26/2017 12:01 PM PLASTICS TOOLING ENGINEER): Well controlled on current med regimen. Continue [...] hip Assessment & Plan (04/11/2021 1:15 PM PLASTICS TOOLING ENGINEER): Last DEXA was 11/26/2017 showing T-2.7 spine, [...] do. Assessment & Plan (01/26/2019 11:29 AM PLASTICS TOOLING ENGINEER): Update 25 [place] Vitamin D. DEXA from [facility] still not received. Will request again. Assessment & Plan (08/04/2018 2:22 PM CDT): Will work on obtaining bone density report from [facility]; [place]. Assessment & Plan (10/28/2017 9:44 PM CDT): Images from the original note were not included. Schedule update DEXA as previously discussed. Assessment & Plan (06/30/2017 9:49 AM CDT): Update DEXA scheduled per Job Setter. Advised patient to have copy sent to [...] Department Care Team Description 12/09/2024 Results Follow-Up [facility] Emergency Department [address] [place] [address] Reg Gallardo RN Comprehensive metabolic panel, Lipase, eGFR 12/08/2024 2:06 PM CDT - 12/08/2024 3:47 PM CDT Emergency [facility] Emergency Department [address] [place] [address] T wave inversion in electrocardiogram (Primary Dx); ST segment changes on electrocardiogram Discharge Disposition: Left without being seen 11/22/2024 10:40 AM CDT Office Visit [facility] Medicine Rheumatology [address] [place] [address] Advanced Medicine 5th [place] [address] [place] [address] Yumiko Shaffer MD Seropositive rheumatoid arthritis of multiple sites (HCC) (Primary Dx); Primary osteoarthritis involving multiple joints; High risk medication use; Other osteoporosis without current pathological fracture 11/09/2024 Documentation [facility] Rhe[facility] [address] 2nd [address] [place] [address] Pilo Davila Eye Exam (10-22-24 morteza barragan OD ok for plaquenil) 10/14/2024 Telephone [facility] [address] [place] [address] Trey Bustamante RPh 10/11/2024 9:20 AM CDT - 10/11/2024 11:59 PM CDT Hospital Encounter [facility] [address] [place] [address] Yumiko Shaffer MD Discharge Disposition: Discharge to home or self care 10/11/2024 9:[address] [facility] [address] [place] [phone] High risk medication use 10/11/2024 8:20 AM CDT Office Visit [facility] Medicine Rheumatology [address] [place] [address] Advanced [facility] 5th [place] [address] [place] [address] Yumiko Shaffer MD Seropositive rheumatoid arthritis of multiple sites (HCC) (Primary Dx); Primary osteoarthritis involving multiple joints; High risk medication use; Other osteoporosis without current pathological fracture 10/11/2024 Results Follow-Up [facility] Medicine Rheumatology [address] 5th Floor [address] [place] [address] Yumiko Shaffer MD XR Foot Left 3 or More Views 10/01/2024 9:51 PM CDT - 10/02/2024 12:25 AM CDT Emergency [facility] Emergency Department [address] [place] [address] Ervin Morin MD Watson, Brendan Matthew, MD [...] on file Legal Sex Female 5:33 PM PLASTICS TOOLING ENGINEER Gender Identity Not on file Sexual Orientation [...] Completed 11/19/2021 Medical Devices Implanted Type Area Serging Machine Operator Automatic Device Identifier Shelf Expiration Date Model / Serial / Lot [employer] Staffing [id number] [employer] 10x7cm 4 Sheet Freeze Dried Graft Soft Tissue - S00 - [id number] Implanted:Qty : 1 on 03/08/2021 by Bryson Dc MD at [facility] Mesh N/A: Other - see comments [employer] [id number] 12/04/2021 [id number] / 00 / Description:Hiatus per Dr. Clarice [...] LAB BLOOD ORDERABLES Meredith l Result [facility] One [facility] [place] [address] * Lipase (12/08/2024 2:59 PM CDT) Lipase 14 10 - 99 Units/L Blood Venous blood specimen / Unknown 12/08/2024 2:59 PM CDT 12/08/2024 3:37 PM CDT us Isai Espinoza MD LAB BLOOD ORDERABLES Meredith keith Result [facility] [address] [facility] [place] [address] * Comprehensive metabolic panel (12/08/2024 2:59 PM CDT) [facility] Sodium 139 135 - 145 mmol/L Potassium, pl 3.7 3.3 - 4.9 mmol/L [facility] Chloride 105 97 - 110 mmol/L [facility] CO2 23 22 - 32 mmol/L [facility] Anion gap 11 2 - 15 mmol/L [facility] BUN 18 6 - 25 mg/dL [facility] Creatinine 0.77 0.60 - 1.10 mg/dL [facility] Glucose 118 70 - 199 mg/dL [facility] Comment: Interpretive Data Fasting glucose >/= [...] 2022. Calcium 9.0 8.5 - 10.3 mg/dL [facility] Bilirubin, total 0.8 0.1 - 1.2 mg/dL [facility] Protein, pl 7.1 6.5 - 8.5 g/dL [facility] Albumin 3.6 3.5 - 5.0 g/dL [facility] Alk phos 72 40 - 130 Units/L [facility] ALT 14 7 - 45 Units/L [facility] AST 28 10 - 45 Units/L [facility] Blood 12/08/2024 2:59 PM CDT 12/08/2024 3:37 PM CDT Isai Espinoza MD LAB BLOOD ORDERABLES Meredith keith Result [facility] Co[facility] Department [place] [address] * (ABNORMAL) ECG 12-LEAD (12/08/2024 2:58 PM CDT) Narrative [facility] - 12/08/2024 2:58 PM CDT David Kim [...] test. T-SPOT.TB Panel A Spot Count 0 [facility] T-SPOT.TB Panel B Spot Count 0 [facility] T-SPOT.TB Negative Control Passed [facility] T-SPOT.TB Positive Control Passed [facility] Comment: Test Performed at: [facility] [employer] [address] [place] [phone] JILL BLACKMON,PHD Blood 10/11/2024 9:10 AM CDT 10/11/2024 9:34 AM CDT us Yumiko Shaffer MD LAB MICROBIOLOGY - GENERAL O RDERABLES Final Result [facility] One [facility] [place] [address] * (ABNORMAL) Urinalysis reflex to [...] tendency for uric acid stone formation. Source: [facility] [employer] Current Interpretive Data was last revised on [...] GENERAL O RDERABLES Final Result [facility] CHEUNG [address] [facility]. [place] [address] * (ABNORMAL) Urinalysis, microscopic only [...] ORDERABLES Final R esult Performing Organization Address [facility] Co de Phone Number WIL CHONGWCH [phone] [address]. [facility] [place] [address] * (ABNORMAL) Urine culture Urine (10/01/2024 11:55 PM CDT) Report Final Report: Growth indicates contamination with mixed bacterial maryan. (.) Comment:Testing performed by : [facility], [address] [place] [address]., [address] Organism GROWTH INDICATES CONTAMINATION WITH MIXED MARYAN. WIL CHONGWCHRISTOPHER Urine 10/01/2024 11:5 5 PM CDT 10/02/2024 2:38 AM CDT Narrative [facility]IL CRUM - 10/03/2024 7:58 AM CDT Urine culture reflexed based upon urinalysis results. Ervin Morin MD LAB MICROBIOLOGY - GENERAL O RDERABLES Final Result Performing Organization Address [facility] Co de Phone Number WIL CHONGWCH [address] [place] [facility]. [facility] [place] [place] [address] * XR Chest 1 Vw Portable (10/01/2024 [...] COVID-19 PCR Nasopharyngeal (10/01/2024 10:00 PM CDT) [facility] COVID-19 RNA Negative Negative Influenza A RNA Negative Negative [facility] Influenza B RNA Negative Negative [facility] RSV RNA Negative Negative [facility] Comment: Testing performed by [facility]. This test is performed using the [employer] Xpert Xpress CoV-2/Flu/RSV plus assay. This is a multiplex, real-time reverse transcriptase PCR assay intended for the qualitative detection of nucleic acid from SARS-CoV-2, influenza A, influenza B, and respiratory syncytial virus. This assay has been cleared by the [place] Food and Drug administration. The performance characteristics have been verified by the [facility]. Results must be considered [...] GENERAL O RDERABLES Final Result WIL CHEUNGCH [address] [facility]. [place] [address] * Respiratory pathogen panel Nasopharyngeal (10/01/2024 10:00 PM CDT) [facility] Influenza A RNA Not Detected Not Detected [facility] Comment:Testing performed by : [facility], [facility], [place]., [address] Influenza B RNA Not Detected Not Detected [facility] Comment:Testing performed by : [facility], [address] [place] [address]., [address] RSV RNA Not Detected Not Detected [facility] Comment:Testing performed by : [facility], [address] [place] [address]., [address] COVID-19 RNA Not Detected Not Detected [facility] Comment:Testing performed by : [facility], [address] [place] [address]., [address] Coronavirus 229E RNA Not Detected Not Detected [facility] Comment:Testing performed by : [facility], [address] [place] [address]., [address] Coronavirus HKU1 RNA Not Detected Not Detected [facility] Comment:Testing performed by : [facility], [address] [place] [address]., [address] Coronavirus NL63 RNA Not Detected Not Detected [facility] Comment:Testing performed by : [facility], [address] [place] [address]., [address] Coronavirus OC43 RNA Not Detected Not Detected [facility] Comment:Testing performed by : [facility], [address] [place] [address]., [address] Adenovirus DNA Not Detected Not Detected [facility] Comment:Testing performed by : [facility], [address] [place] [address]., [address] Metapneumovirus RNA Not Detected Not Detected [facility] Comment:Testing performed by : [facility], [address] [place] [address]., [address] Rhinovirus/Enterov irus RNA Not Detected Not Detected [facility] Comment:Testing performed by : [facility], [address] [place] [address]., [address] Parainfluenza 1 RNA Not Detected Not Detected [facility] Comment:Testing performed by : [facility], [address] [place] [address]., [address] Parainfluenza 2 RNA Not Detected Not Detected [facility] Comment:Testing performed by : [facility], [address] [place] [address]., [address] Parainfluenza 3 RNA Not Detected Not Detected [facility] Comment:Testing performed by : [facility], [address] [place] [address]., [address] Parainfluenza 4 RNA Not Detected Not Detected [facility] Comment:Testing performed by : [facility], [address] [place] [address]., [address] B. pertussis DNA Not Detected Not Detected [facility] Comment:Testing performed by : [facility], [address] [place] [address]., [address] B. parapertussis DNA Not Detected Not Detected [facility] Comment:Testing performed by : [facility], [address] [place] [address]., [address] C. pneumoniae DNA Not Detected Not Detected [facility] Comment:Testing performed by : [facility], [address] [place] [address]., [address] M. pneumoniae DNA Not Detected Not Detected [facility] Comment: Interpretive Data The [employer] FilmArray Respiratory Panel (RP2.1) assay is a [...] assay has FDA clearance for testing of CREDIT ADMINISTRATION OFFICER swabs. The performance characteristics of this assay have been determined by [facility]. Current interpretive data was last revised on 2020. Testing performed by: [facility], [address] [place] [address]., [address] Nasopharyngeal 10/01/2024 10 :00 PM CDT 10/02/2024 2:38 AM CDT Ferny Avalos MD PhD LAB MICROBIOLOGY - GENERAL ORDERABLES Final Result [facility] [address] [facility]. [place] [address] [facility] * eGFR (10/01/2024 9:50 PM CDT) [facility] eGFR 68 >=60 mL/min/1. 73 m2 Comment: [...] BLOOD ORDERABLES Final R esult [facility] CHEUNG [address] [facility]. Department [place] [address] * Differential, auto (10/01/2024 9:50 PM CDT) [...] revised on 2017. Monocyte pct 12.7 % [facility] Comment: Interpretive Data Percent cell count reference ranges are not reported, since discordance with absolute values may lead to misinterpretation of CBC data. Current Interpretive Data was last revised on 2017. Eosinophil pct 1.2 % [facility] Comment: Interpretive Data Percent cell count reference ranges are not reported, since discordance with absolute values may lead to misinterpretation of CBC data. Current Interpretive Data was last revised on 2017. Basophil pct 0.7 % [facility] Comment: Interpretive Data Percent cell count reference ranges are not reported, since discordance with absolute values may lead to misinterpretation of CBC data. Current Interpretive Data was last revised on 2017. Blood 10/01/2024 9:50 PM CDT 10/01/2024 9:55 PM CDT Ervin Morin MD LAB BLOOD ORDERABLES Final R esult [facility] [address] [facility]. Department [place] [address] * (ABNORMAL) CBC with auto differential (10/01/2024 9:50 PM CDT) WBC 5.99 3.80 - 9.90 K/cumm Hgb 11.4(L) 11.9 - 15.5 g/dL [facility] Hct 35.0(L) 35.6 - 45.5 % [facility] Plt 294 150 - 400 K/cumm [facility] MPV 10.0 9.1 - 12.3 fL [facility] RBC 3.71(L) 3.90 - 5.20 M/cumm [facility] MCV 94.3 81.3 - 96.4 fL [facility] MCH 30.7 27.1 - 33.3 pg [facility] MCHC 32.6 32.3 - 35.7 g/dL [facility] RDW CV 13.2 11.1 - 14.9 % [facility] RDW SD 45.2 35.7 - 48.1 fL [facility] NRBC abs 0.00 0.00 - 0.01 K/cumm [facility] Blood 10/01/2024 9:50 PM CDT 10/01/2024 9:55 PM CDT Ervin Morin MD LAB BLOOD ORDERABLES Final R esult [facility]G [address] [facility]. [place] [address] * (ABNORMAL) Basic metabolic panel (10/01/2024 9:50 PM CDT) Sodium 136 135 - 145 mmol/L Potassium, pl 3.3 3.3 - 4.9 mmol/L [facility] Chloride 97 97 - 110 mmol/L [facility] CO2 23 22 - 32 mmol/L [facility] Anion gap 16(H) 2 - 15 mmol/L [facility] BUN 19 6 - 25 mg/dL [facility] Creatinine 0.90 0.60 - 1.10 mg/dL [facility] Glucose 116 70 - 199 mg/dL [facility] Comment: Interpretive Data Fasting glucose >/= [...] 2022. Calcium 9.3 8.5 - 10.3 mg/dL [facility] Blood 10/01/2024 9:50 PM CDT 10/01/2024 9:55 PM CDT Ervin Morin MD LAB BLOOD ORDERABLES Final R esult [facility] [address] [facility]. [place] [address] * Hepatitis C antibody (11/19/2021 2:35 PM CDT) Hep C Ab Nonreactive Nonreactive [facility] Comment:Antibodies to HCV no t detected. Does NOT exclude the possibility of recent exposure to HCV. Blood 11/19/2021 2:35 PM CDT 11/19/2021 4:08 PM CDT us Yumiko Shaffer MD LAB MICROBIOLOGY - GENERAL O RDERABLES Edited Result - Final Performing Organization Address [facility] Co de Phone Number WIL CHONG [facility] [place] [address] from Last 3 Months or Most Recently Relevant to Health Maintenance Insurance [facility] [place] MEDICARE MEDICARE [employer] [place] MEDICARE [employer] [place] Advance Directives For more information, please contact: [phone] * Full Code (Latest Code Status on File) Date Activated Date Inactivated Comments 03/05/2021 8:14 AM 03/10/2021 4:43 PM Care Teams Video Game Engineer Relationship Specialty Start Date End Date Noris Limon NP [facility] [address] [address] PCP - General Internal Medicine 10/01/24 Yumiko Shaffer MD Consulting Physician Internal Medicine 02/19/23
--- OUTSIDE RECORDS SUMMARY | 2024-12-09 19:32 | XMS_ITS | Encounter Summary ---
Author Organization 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
--- OUTSIDE RECORDS SUMMARY | 2024-12-09 19:33 | XMS_ITS | Clinical Summary ---
Author Organization [facility] Care Team Providers Care Blind Installer Name Role Phone Unavailable Primary Care Provider [...]
[2024-12-09 20:14] LABS: Estimated Glomerular Filt Rate > 60
[2024-12-09] MEDS: LIDOCAINE 2% GEL UROJET 10 ML PKG (21:03)
[2024-12-09] MEDS: PIPERACILLIN/TAZOBACTAM SOD 3.375 GM in SODIUM CHLORIDE 0.9% IV 50 ML 100 ML IVPB (21:15)
[2024-12-09 21:45] LABS: Add Urine Microscopic? YES; Appearance Urine Clear (Clear); Glucose Urine UA Negative (Negative); Leukocyte Esterase Ur Negative LEU/UL (Negative); Nitrate Urine Negative (Negative); Non Pathogenic Casts 0-2; Specific Grav Ur 1.036 (1.001-1.035)
[2024-12-09 22:07] LABS: Alanine Aminotransferase 18 U/L (6-35); Albumin Level 3.8 g/dL (3.5-5.1); Alkaline Phosphatase 87 U/L (38-126); Anion Gap 9 mmol/L (4-12); Aspartate Amino Transferase 36 U/L (14-36); Bilirubin,Total 0.9 mg/dL (0.2-1.3); Blood Urea Nitrogen 19 mg/dL (7-17); Calcium 9.0 mg/dL (8.4-10.2); Carbon Dioxide 22 mmol/L (22-30); Chloride 103 mmol/L (98-107); Estimated Glomerular Filt Rate > 60; Glucose 118 mg/dL (65-110); Lipase 302 U/L (23-300); Magnesium 2.2 mg/dL (1.6-2.3); Potassium 3.0 mmol/L (3.4-5.0); Sodium 134 mmol/L (137-145); Total Protein 7.4 g/dL (6.3-8.2)
--- NOTE | 2024-12-09 22:34 | PM.IMHP ---
H&P: HPI History of Present Illness Date/Time: 12/09/24 22:34 Chief Complaint: Abdominal pain Narrative: 74-year-old female with PMH rheumatoid arthritis, GERD, history of hiatal hernia repair in 2021, history of hysterectomy presented to [facility] on 12/09/2024 complaining of diffuse abdominal pain. She was in the same ER a few nights prior with abdominal pain. A CT of the abdomen pelvis show panniculitis versus omental infarct. She has been able to keep anything down. Reports she took several laxatives 1 day prior in her bowel movement was mainly watery. Reports a fever last night 101.8? F. about 2 weeks prior she started on golimumab monthly injection, she thinks maybe she has constipation from that. ER evaluation demonstrates WBC 18.9, hemoglobin 11.7, platelets 221, sodium 134, potassium 3.0, BUN 19, serum creatinine 0.8, LFTs within normal limits, lipase 302, urinalysis 1+ protein, trace ketones, blood cultures obtain. Repeat CT abdomen pelvis with contrast demonstrates small bowel obstruction as there is fluid-filled distended stomach and small bowel loops with multiple air-fluid levels and a likely transition point in the mid lower abdomen. General surgery contacted from ER, requested admission by the hospitalist team. Requested Zosyn administration for elevated white count. Patient was given morphine 4 mg IV x2, Zofran 4 mg IV x1, normal saline bolus 1 L. NG to was placed on low intermittent suction with clear but thick yellow fluid return. Review of Systems Review of Systems: All systems reviewed & are unremarkable except as noted in HPI and below (Subjective) [facility] Past Medical History Medical History GERD (gastroesophageal reflux disease) Rheumatoid arthritis Surgical History Surgical History History of repair of hiatal hernia (~03/08/21) H/O: hysterectomy Family History Family History Father Hypertension Family history of coronary artery disease, Onset Age: 82 Family history of malignant neoplasm of breast in first degree relative Patient's father is Social History Social History Years smoked: 35 Smoking status: Former smoker Second hand tobacco smoke exposure: No Smoking end date: 02/18/08 Alcohol intake: current Substance use: never Substance use type: does not use Lack of Transportation: No Lack of Food: Never True Current Housing: I Have Housing Concerned About Future Housing: No Difficulty Paying Gas/Electric Bills: No Difficulty Paying for Meds: No Currently Unemployed: No Education: High School Diploma/GED Difficulty w/ Childcare or Family Care: No Gender identity (if verbalized by the patient): Female Meds Home Medications and Allergies Home Medications ?Medication ?Instructions ?Recorded ?Confirmed ?Type hydroxychloroquine 200 mg tablet mg PO 04/20/24 10/04/24 History oxybutynin chloride 5 mg tablet See Rx Instructions .Route 07/09/24 10/04/24 Rx .COMPLEX #180 tabs paroxetine HCl 10 mg tablet See Rx Instructions .Route 09/06/24 10/04/24 Rx .COMPLEX #90 tabs pantoprazole 40 mg tablet,delayed 40 mg PO DAILY #90 tabs 09/09/24 10/04/24 Rx release ondansetron 8 mg disintegrating 8 mg PO Q8H PRN nausea and 10/04/24 10/04/24 Rx tablet vomiting #30 tabs alprazolam 0.25 mg tablet 0.25 mg PO QHS PRN sleep #90 tabs 10/20/24 Rx ondansetron 4 mg disintegrating 4 mg PO Q8H PRN nausea and 12/07/24 Rx tablet vomiting #14 tabs oxycodone 5 mg capsule 5 mg PO Q8H PRN pain #10 caps 12/07/24 Rx Allergies Allergy/AdvReac Type Severity Reaction Status Date / Time erythromycin base Allergy Intermediate Nausea Verified 12/07/24 15:07 sulfamethizole Allergy Intermediate upset Verified 12/07/24 15:07 stomach adalimumab AdvReac Intermediate HIVES Verified 12/07/24 15:07 Vital Signs Vital Signs - 24 hr 12/09/24 18:23 12/09/24 18:37 12/09/24 19:00 Temperature 98.8 F Pulse Rate 85 88 75 Respiratory Rate 17 16 20 Blood Pressure 115/59 L 138/84 143/96 H Pulse Oximetry 97 97 98 Oxygen Delivery Room Air 12/09/24 19:30 12/09/24 21:15 12/09/24 21:30 Temperature Pulse Rate 81 80 80 Respiratory Rate 20 20 19 Blood Pressure 102/85 148/74 H 142/73 H Pulse Oximetry 97 96 96 Oxygen Delivery 12/09/24 21:45 12/09/24 22:00 Temperature Pulse Rate 81 85 Respiratory Rate 20 19 Blood Pressure 115/65 Pulse Oximetry 96 94 Oxygen Delivery Exam Const: General: comfortable and no acute distress Other: A&O x4 Eyes: Pupils: Equal, round and reactive pupils present Neck: Neck: supple Resp: Effort & Inspection: normal respiratory effort Auscultation: clear to auscultation bilaterally Cardio: Rate: regular rate Rhythm: regular rhythm GI: Inspection: distended GI Palp: Yes Firmness to palpation present (GI) and No Guarding due to palpation present (GI) Other: Mildly tender to deep palpation diffusely. Hypoactive bowel sounds : General: Yes bladder normal to palpation Neuro: Motor exam (neuro): 5/5 motor strength present throughout Extrem: General: no edema H&P: Results Labs Labs: Short CBC 12/09/24 Range/Units 18:46 WBC 18.9 H (4.5-10.0) K/mm3 Hgb 11.7 L (12.0-15.0) g/dL Hct 36.1 L (37.0-47.0) % Plt Count 221 (150-375) k/mm3 BMP 12/09/24 12/09/24 20:01 20:10 Sodium 134 L Potassium 3.0 L Chloride 103 Carbon Dioxide 22 BUN 19 H Creatinine 0.71 0.80 Glucose 118 H Calcium 9.0 Liver Function 12/09/24 Range/Units 20:01 Total Bilirubin 0.9 (0.2-1.3) mg/dL AST 36 (14-36) U/L ALT 18 (6-35) U/L Alkaline Phosphatase 87 (38-126) U/L Albumin 3.8 (3.5-5.1) g/dL Urine 12/09/24 Range/Units 21:33 Urine Color Dark yellow (Yellow) Urine Appearance Clear (Clear) Urine pH 5.5 (5.0-9.0) Ur Specific [place] 1.036 H (1.001-1.035) Urine Protein 1+ H (Negative) mg/dL Urine Glucose (UA) Negative (Negative) mg/dL Assessment and Plan Assessment and plan (1) Small bowel obstruction: Code(s): K56.609 - Unspecified intestinal obstruction, unspecified as to partial versus complete obstruction Status: Acute Plan 74-year-old female with PMH rheumatoid arthritis, GERD, history of hiatal hernia repair in 2021, history of hysterectomy presented to [facility] on 12/09/2024 complaining of diffuse abdominal pain. She was in the same ER a few nights prior with abdominal pain. A CT of the abdomen pelvis show panniculitis versus omental infarct. She has been able to keep anything down. Reports she took several laxatives 1 day prior in her bowel movement was mainly watery. Reports a fever last night 101.8? F. about 2 weeks prior she started on golimumab monthly injection, she thinks maybe she has constipation from that. ER evaluation demonstrates WBC 18.9, hemoglobin 11.7, platelets 221, sodium 134, potassium 3.0, BUN 19, serum creatinine 0.8, LFTs within normal limits, lipase 302, urinalysis 1+ protein, trace ketones, blood cultures obtain. Repeat CT abdomen pelvis with contrast demonstrates small bowel obstruction as there is fluid-filled distended stomach and small bowel loops with multiple air-fluid levels and a likely transition point in the mid lower abdomen. General surgery contacted from ER, requested admission by the hospitalist team. Requested Zosyn administration for elevated white count. Patient was given morphine 4 mg IV x2, Zofran 4 mg IV x1, normal saline bolus 1 L. NG to was placed on low intermittent suction with clear but thick yellow fluid return. ----- Continue NG tube. Normal saline at 75 cc/hour. Zosyn 2.25 g IV q.6 hours, Zofran p.r.n., morphine 4 mg IV q.2 hours p.r.n., Accu-Cheks q.6 hours with hypoglycemia protocol. General surgery consult. Protonix 40 mg IV q.day. Potassium being replaced. Recheck. ----- Full code. SCDs. NPO. Normal saline maintenance fluids Hospitalist [facility] Advance Care Plan I have confirmed that the patient's Advanced Care Plan is present, code status is documented, or surrogate decision maker is listed in patient medical record.: Yes Medication Reconciliation I have utilized all available resources to obtain, update and review the patients current medications (includes all prescriptions, OTC, herbals, cannabis, and nutritional supplements).: Yes
[2024-12-09] MEDS: SODIUM CHLORIDE 0.9% IV 1,000 ML 75 ML IV CONT (22:45)
[2024-12-09] MEDS: POTASSIUM CHLORIDE INJ 40 MEQ in SODIUM CHLORIDE 0.9% IV 500 ML 130 MEQ IVPB (22:47)
[2024-12-09] MEDS: PANTOPRAZOLE SODIUM IV 40 MG VIAL IV PUSH (22:51)
--- NOTE | 2024-12-09 23:27 | ADMGEN ---
This patient, Basilia Garnett, was admitted to [facility] Room 322-02. Patient/family oriented to hospital policies and general routines including ID bracelet, bed and alarms, visiting hours, pain management, procedures, bathroom and other care routines, personal items, smoking policy, room service/diet, and visiting hours. Information on how to activate the Rapid Response Team has been discussed. Patient/Family are encouraged to report perceived risks to care and to ask questions if they do not understand what they are told or what they should do.
[2024-12-10] VITALS (11 sets, daily range): BP systolic 118–141; BP diastolic 56–71; PULSE 64–102; RESP 14–18; TEMP 36.4–36.8; O2SAT 94–98
[2024-12-10] MEDS: PIPERACILLIN/TAZOBACTAM SOD 2.25 GM in SODIUM CHLORIDE 0.9% IV 50 ML 100 ML IVPB ×3 (05:05→23:29)
[2024-12-10] MEDS: ONDANSETRON INJ 4 MG/2 ML VIAL IV PUSH ×3 (05:05→16:10)
[2024-12-10 06:40] LABS: Hematocrit 32.4 % (37.0-47.0); Hemoglobin 10.1 g/dL (12.0-15.0); Immature Granulocyte Percent A 0.4 % (0-0.5); Lymphocytes Absolute Auto 0.58 K/mm3 (0.9-3.2); Mean Corpuscular HGB Conc 31.2 g/dl (32-36); Mean Corpuscular Hemoglobin 30.9 pg (26-34); Mean Corpuscular Volume 99.1 fl (80-100); Nucleated Red Blood Cells Absolute Auto 0.000 K/mm3 (0.0-0.012); Nucleated Red Blood Cells Perc 0.0 % (0.0-0.2); Platelet Count Result 189 k/mm3 (150-375); Red Blood Count 3.27 M/mm3 (4.2-5.4); White Blood Count 9.1 K/mm3 (4.5-10.0)
[2024-12-10 06:56] LABS: INR 1.2; Prothrombin Time 15.7 Seconds (11.1-14.7)
[2024-12-10 07:21] LABS: Procalcitonin 8.1 ng/mL
[2024-12-10 07:22] LABS: Anion Gap 9 mmol/L (4-12); Blood Urea Nitrogen 17 mg/dL (7-17); Calcium 7.7 mg/dL (8.4-10.2); Carbon Dioxide 21 mmol/L (22-30); Chloride 106 mmol/L (98-107); Estimated Glomerular Filt Rate > 60; Glucose 113 mg/dL (65-110); Magnesium 2.0 mg/dL (1.6-2.3); Potassium 3.4 mmol/L (3.4-5.0); Sodium 136 mmol/L (137-145)
--- NOTE | 2024-12-10 07:43 | P.PNIM_ITS ---
Progress Note: A&P Assessment and Plan (1) Small bowel obstruction: Code(s): K56.609 - Unspecified intestinal obstruction, unspecified as to partial versus complete obstruction Status: Acute Assessment and Plan: Surgery consulted NPO IVF NG tube to low intermittent suction Waiting for return of bowel function Okay to clamp tube for walks (2) Leukocytosis: Code(s): D72.829 - Elevated white blood cell count, unspecified Status: Acute Assessment and Plan: Patient was started on Zosyn for possible abdominal infection with SBO Blood cultures pending Leukocytosis resolved the Zosyn will defer to surgery for antibiotic guidance (3) Anemia: Code(s): D64.9 - Anemia, unspecified Status: Acute Assessment and Plan: Anemia workup pending Transfuse for hemoglobin less than 7 or symptomatic No signs of acute bleeding Noted for blood transfusion at this time (4) Hypocalcemia: Code(s): E83.51 - Hypocalcemia Status: Acute Assessment and Plan: Replete calcium BMP a.m. (5) Rheumatoid arthritis: Code(s): M06.9 - Rheumatoid arthritis, unspecified Status: Acute Assessment and Plan: Holding oral medications while NPO 2 weeks prior she started on golimumab monthly injection, she thinks maybe she has constipation from that. (6) Anxiety: Code(s): F41.9 - Anxiety disorder, unspecified Status: Acute Assessment and Plan: Will restart medications when approved by surgery Subjective Date/time seen: 12/10/24 07:43 Interval history: 4-year-old female with PMH rheumatoid arthritis, GERD, history of hiatal hernia repair in 2021, history of hysterectomy presented to [facility] on 12/09/2024 complaining of diffuse abdominal pain. CT abdomen pelvis with contrast demonstrates small bowel obstruction as there is fluid-filled distended stomach and small bowel loops with multiple air-fluid levels and a likely transition point in the mid lower abdomen. NG tube was placed and surgery was consulted. Patient states that she is not nauseated this morning is feeling better with NG tube in place. Review of Systems Review of Systems: 12 systems were reviewed and are negativ e except for as per HPI. Exam Narrative: General: well appearing, appears stated age. HEENT: normocephalic, atraumatic. Mucous membranes moist. EOMI, PERRLA, bilateral sclera anicteric, no conjunctival injection. Neck supple without JVD, lymphadenopathy, or bruit. NG tube with thick green output Respiratory: clear to ascultation bilaterally. No rales/rhonic/wheezes. Cardiovascular: Regular rate and rhythm, normal S1-S2 upon ascultation. No murmurs, rubs, or clicks. PMI is nondisplaced, capillary refill less than 3 second. Abdomen: Firm, distended tender to palpation Extremities: No cyanosis, clubbing, or edema present. Pulses are palpable 2/2. Active ROM to all four extremities. Neuro: Alert and orientated x 4. PERRLA. Cranial nerves 2-12 intact without focal deficit. Skin: Warm, dry, and intact, without rash, erythema, or lesion. Psych: pleasant, cooperative, normal speech, normal affect, no hallucinations, no dysarthia Objective Data Vital Signs Vital Signs: Vital Signs - 24 hr 12/09/24 18:23 12/09/24 18:37 12/09/24 19:00 Temperature 98.8 F Pulse Rate 85 88 75 Respiratory Rate 17 16 20 Blood Pressure 115/59 L 138/84 143/96 H Pulse Oximetry 97 97 98 Oxygen Delivery Room Air 12/09/24 19:30 12/09/24 21:15 12/09/24 21:30 Temperature Pulse Rate 81 80 80 Respiratory Rate 20 20 19 Blood Pressure 102/85 148/74 H 142/73 H Pulse Oximetry 97 96 96 Oxygen Delivery 12/09/24 21:45 12/09/24 22:00 12/09/24 23:19 Temperature 98 F Pulse Rate 81 85 82 Respiratory Rate 20 19 14 Blood Pressure 115/65 116/61 Pulse Oximetry 96 94 97 Oxygen Delivery 12/10/24 00:00 12/10/24 01:38 12/10/24 04:00 Temperature Pulse Rate 85 82 102 H Respiratory Rate 14 Blood Pressure Pulse Oximetry 97 Oxygen Delivery Room Air 12/10/24 06:00 Temperature Pulse Rate 91 Respiratory Rate 14 Blood Pressure 129/56 L Pulse Oximetry 97 Oxygen Delivery Intake/Output Intake/Output: Intake & Output 12/07/24 12/08/24 12/09/24 12/10/24 23:59 23:59 23:59 23:59 Intake Total 1050 Output Total 950 Balance 1050 -950 Meds/Results Medications: Active Medications Generic Name Dose Route Start Last Admin Trade Name Freq PRN Reason Stop Dose Admin Acetaminophen 650 mg 12/09/24 22:12 Acetaminophen 650 Mg Suppository RECTAL Q6H PRN Mild Pain (1-3) or Fever Dextrose 12.5 gm 12/09/24 22:12 Dextrose 50% 25 Gm/50 Ml Syringe IV PUSH PRN PRN Hypoglycemia Protocol Glucose 15 gm 12/09/24 22:12 Glucose Oral Gel 15 Gm Of Glucse In 37.5 Gm Tube PO PRN PRN Hypoglycemia Protocol Piperacillin Sod/Tazobactam 50 mls @ 100 mls/hr 12/10/24 06:00 12/10/24 05:05 Sod 2.25 gm/ Sodium Chloride IVPB 100 mls/hr Q6HR TARA Administration Sodium Chloride 1,000 mls @ 75 mls/hr 12/09/24 22:15 12/09/24 22:45 Normal Saline Iv IV CONT 75 mls/hr .[id number] TARA Administration Dextrose 1,000 mls @ 100 mls/hr 12/09/24 22:12 Dextrose 5% 1,000 Ml IVPB PRN PRN Hypoglycemia Protocol Morphine Sulfate 4 mg 12/09/24 22:12 Morphine Sulfate (*Crx) 4 Mg/Ml Inj IV PUSH Q2H PRN Pain Rated 7-10 Ondansetron HCl 4 mg 12/09/24 22:12 12/10/24 05:05 Ondansetron Inj 4 Mg/2 Ml Vial IV PUSH 4 mg Q4H PRN Administration Nausea Pantoprazole Sodium 40 mg 12/09/24 22:45 12/09/24 22:51 Pantoprazole Sodium Iv 40 Mg Vial IV PUSH 40 mg DAILY TARA Administration Radiology Results: ITS Impressions Abdomen/Pelvis CT 12/09/24 20:32 IMPRESSION: Findings suggestive of a small bowel obstruction. All CT scans at this facility are performed using low dose modulation techniques as appropriate to perform exam including the following: automated exposure control; use of iterative reconstruction technique; adjustment of the mA and/or kV according to patient size (this includes techniques or standardized protocols for targeted exams where dose is matched to indication/reason for exam). Abdomen X-Ray 12/09/24 21:27 IMPRESSION: Enteric tube is in appropriate position within the stomach. Diffuse gaseous distention of the bowel loops suggestive of a bowel obstruction is noted. Labs Labs: Laboratory Results - last 24 hr 12/09/24 12/09/24 12/09/24 18:46 20:01 20:10 WBC 18.9 H RBC 3.72 L Hgb 11.7 L Hct 36.1 L MCV 97.0 MCH 31.5 MCHC 32.4 RDW 13.5 Plt Count 221 MPV 11.4 H Immature Gran % (Auto) 0.6 H Neut % (Auto) 77.6 H Lymph % (Auto) 10.5 L [place] % (Auto) 10.1 H Eos % (Auto) 1.0 Baso % (Auto) 0.2 Lymph # (Auto) 1.98 [place] # (Auto) 1.9 H Eos # (Auto) 0.2 Baso # (Auto) 0.0 Abs Immat Gran (auto) 0.11 H Absolute Neuts (auto) 14.6 H Absolute Nucleated RBC 0.000 Nucleated RBC % 0.0 PT INR Sodium 134 L Potassium 3.0 L Chloride 103 Carbon Dioxide 22 Anion Gap 9 BUN 19 H Creatinine 0.71 0.80 Estim Creat Clear Calc Not Reportable Not Reportable Estimated GFR > 60 > 60 Glucose 118 H POC Capillary Glucose Lactic Acid 1.7 Calcium 9.0 Magnesium 2.2 Total Bilirubin 0.9 AST 36 ALT 18 Alkaline Phosphatase 87 Total Protein 7.4 Albumin 3.8 Lipase 302 H Procalcitonin Urine Color Urine Appearance Urine pH Ur Specific [place] Urine Protein Urine Glucose (UA) Urine Ketones Ur Blood (Man) Urine Nitrate Urine Bilirubin Urine Urobilinogen Leukocyte Esterase Rfl Urine RBC Urine WBC Ur Squamous Epith Cells Urine Bacteria Urine Casts 12/09/24 12/09/24 12/10/24 21:33 23:45 06:14 WBC RBC Hgb Hct MCV MCH MCHC RDW Plt Count MPV Immature Gran % (Auto) Neut % (Auto) Lymph % (Auto) [place] % (Auto) Eos % (Auto) Baso % (Auto) Lymph # (Auto) [place] # (Auto) Eos # (Auto) Baso # (Auto) Abs Immat Gran (auto) Absolute Neuts (auto) Absolute Nucleated RBC Nucleated RBC % PT INR Sodium Potassium Chloride Carbon Dioxide Anion Gap BUN Creatinine Estim Creat Clear Calc Estimated GFR Glucose POC Capillary Glucose 135 H 116 H Lactic Acid Calcium Magnesium Total Bilirubin AST ALT Alkaline Phosphatase Total Protein Albumin Lipase Procalcitonin Urine Color Dark yellow Urine Appearance Clear Urine pH 5.5 Ur Specific [place] 1.036 H Urine Protein 1+ H Urine Glucose (UA) Negative Urine Ketones Trace H Ur Blood (Man) Negative Urine Nitrate Negative Urine Bilirubin Negative Urine Urobilinogen 1.0 Leukocyte Esterase Rfl Negative Urine RBC 0-2 Urine WBC 0-5 Ur Squamous Epith Cells None seen Urine Bacteria None seen Urine Casts 0-2 12/10/24 06:22 WBC 9.1 RBC 3.27 L Hgb 10.1 L Hct 32.4 L MCV 99.1 MCH 30.9 MCHC 31.2 L RDW 13.3 Plt Count 189 MPV 11.0 H Immature Gran % (Auto) 0.4 Neut % (Auto) 76.9 H Lymph % (Auto) 6.3 L [place] % (Auto) 14.6 H Eos % (Auto) 1.3 Baso % (Auto) 0.5 Lymph # (Auto) 0.58 L [place] # (Auto) 1.3 H Eos # (Auto) 0.1 Baso # (Auto) 0.1 Abs Immat Gran (auto) 0.04 H Absolute Neuts (auto) 7.0 H Absolute Nucleated RBC 0.000 Nucleated RBC % 0.0 PT 15.7 H INR 1.2 Sodium 136 L Potassium 3.4 Chloride 106 Carbon Dioxide 21 L Anion Gap 9 BUN 17 Creatinine 0.68 L Estim Creat Clear Calc Not Reportable Estimated GFR > 60 Glucose 113 H POC Capillary Glucose Lactic Acid Calcium 7.7 L Magnesium 2.0 Total Bilirubin AST ALT Alkaline Phosphatase Total Protein Albumin Lipase Procalcitonin 8.1 Urine Color Urine Appearance Urine pH Ur Specific [place] Urine Protein Urine Glucose (UA) Urine Ketones Ur Blood (Man) Urine Nitrate Urine Bilirubin Urine Urobilinogen Leukocyte Esterase Rfl Urine RBC Urine WBC Ur Squamous Epith Cells Urine Bacteria Urine Casts Quality VTE Prophylaxis VTE prophylaxis: mechanical ordered
[2024-12-10] MEDS: MORPHINE SULFATE (*CRX) 4 MG/ML INJ IV PUSH ×2 (09:19→16:09)
[2024-12-10] MEDS: CALCIUM GLUC 2,000 MG/NS 100ML 2,000 MG/100 ML BAG 100 MG IVPB (09:20)
[2024-12-10] MEDS: PANTOPRAZOLE SODIUM IV 40 MG VIAL IV PUSH (09:21)
--- NOTE | 2024-12-10 11:23 | P.CONGS_ITS ---
Assessment and Plan Assessment and plan (1) Small bowel obstruction: Code(s): K56.609 - Unspecified intestinal obstruction, unspecified as to partial versus complete obstruction Status: Acute Assessment and Plan: Patient presented to the ED yesterday, nausea vomiting. She had been seen 2 days prior in [facility] when CT revealed panniculitis/omental infarct. Patient felt better with morphine and Zofran and was sent home. She then presented to [facility] the next day with similar complaints. Left due to increased wait times and patient states she was starting to feel better. She did have a large loose BM after taking laxatives. However, pain persisted and patient ultimately presented again to [facility] yesterday. CT revealed a small bowel obstruction with transition point in mid lower abdomen. NG tube placed and functioning appropriately with 1700 mL bilious fluid out overnight. Upon interview with patinet this morning, she states that she has passed some gas. She did present yesterday with a WBC of 8.9. Placed on Zosyn. WBC this morning 9.1. * Continue NG suction. Will obtain small bowel follow through today. * Continue IV Zosyn. Plan Discussed patient's case and plan of care with Dr. Sykes. History of Present Illness Consult details Consult date: 12/10/24 Reason for consult: other (small bowel obstruction) Requesting physician: Apoorva Jang PA-C Narrative: Patient is a 74-year-old female with history of GERD and rheumatoid arthritis who have been asked to see in surgical consultation for a small bowel obstruction. Patient states that she 1st started having lower abdominal pain on Friday12/06/2024. She presented to [facility] on Friday and CT showed evidence of omental panniculitis. She was given morphine and Zofran and noticed improvement of her symptoms. Of note, CT also revealed a recurrent hiatal hernia status post repair in 2021. Patient continued to be symptomatic and presented to [facility] on Friday 12/08. However, she left without being seen due to long wait times. Patient states that she did have a large liquid bowel movement on Friday after taking laxatives. Patient also endorses nausea and vomiting and subjective fevers. She then presented again to [facility] yesterday. A CT was obtained and demonstrated small bowel obstruction with transition point in the mid lower abdomen. White blood cell count 18.9. General surgery team was consulted. NG tube was placed and patient was started on Zosyn. Upon my interview today, patient denies any history of small bowel obstruction. Previous abdominal surgeries include hiatal hernia repair and hysterectomy after uterus was punctured during a D&C. Patient passing gas today. Markle nauseous this morning, but resolved with Zofran. Afebrile since admission. WBC today normalized to 9.1. NG tube with 1700 mL overnight. Roughly 300 mL dark green bilious fluid in canister upon my interview. [facility] Past Medical History Medical History (Updated 12/10/24 @ 07:52 by Kaylene Clay APRN) GERD (gastroesophageal reflux disease) Rheumatoid arthritis Surgical History Surgical History History of repair of hiatal hernia (~03/08/21) H/O: hysterectomy Family History Family History Father Hypertension Family history of coronary artery disease, Onset Age: 82 Family history of malignant neoplasm of breast in first degree relative Patient's father is Social History Social History Years smoked: 35 Smoking status: Former smoker Tobacco type: cigarettes Second hand tobacco smoke exposure: No Smoking end date: 02/17/11 Alcohol intake: current Drinks per week: 1 Substance use: former Substance use type: marijuana Lack of Transportation: No Lack of Food: Never True Current Housing: I Have Housing Concerned About Future Housing: No Difficulty Paying Gas/Electric Bills: No Difficulty Paying for Meds: No Currently Unemployed: No Education: High School Diploma/GED Difficulty w/ Childcare or Family Care: No Gender identity (if verbalized by the patient): Female Spiritual care concerns: No Meds Home Medications and Allergies Home Medications ?Medication ?Instructions ?Recorded ?Confirmed ?Type hydroxychloroquine 200 mg tablet 200 mg PO DAILY 04/2012/09/24 History oxybutynin chloride 5 mg tablet See Rx Instructions .R oute 07/09/24 12/09/24 Rx .COMPLEX #180 tabs paroxetine HCl 10 mg tablet See Rx Instructions .Route 09/06/24 12/09/24 Rx .COMPLEX #90 tabs pantoprazole 40 mg tablet,delayed 40 mg PO DAILY #90 t abs 09/09/24 12/09/24 Rx release alprazolam 0.25 mg tablet 0.25 mg PO QHS PRN sleep #90 tabs 10/20/24 12/09/24 Rx ondansetron 4 mg disintegrating 4 mg PO Q8H PRN nausea and 12/07/24 12/09/24 Rx tablet vomiting #14 tabs golimumab 50 mg/0.5 mL 50 mg subcut DAILY@1700 11/1812/09/24 History subcutaneous pen injector (Simponi) prednisone 5 mg tablet 5 mg PO Q12H 12/09/24 History Allergies Allergy/AdvReac Type Severity Reaction Status Date / Time erythromycin base Allergy Intermediate Nausea Verified 12/09/24 23:36 sulfamethizole Allergy Intermediate upset Verified 12/09/24 23:36 stomach adalimumab AdvReac Intermediate HIVES Verified 12/09/24 23:36 Vital Signs Vital Signs - 24 hr 12/09/24 18:23 12/09/24 18:37 12/09/24 19:00 Temperature 98.8 F Pulse Rate 85 88 75 Respiratory Rate 17 16 20 Blood Pressure 115/59 L 138/84 143/96 H Pulse Oximetry 97 97 98 Oxygen Delivery Room Air 12/09/24 19:30 12/09/24 21:15 12/09/24 21:30 Temperature Pulse Rate 81 80 80 Respiratory Rate 20 20 19 Blood Pressure 102/85 148/74 H 142/73 H Pulse Oximetry 97 96 96 Oxygen Delivery 12/09/24 21:45 12/09/24 22:00 12/09/24 23:19 Temperature 98 F Pulse Rate 81 85 82 Respiratory Rate 20 19 14 Blood Pressure 115/65 116/61 Pulse Oximetry 96 94 97 Oxygen Delivery 12/10/24 00:00 12/10/24 01:38 12/10/24 04:00 Temperature Pulse Rate 85 82 102 H Respiratory Rate 14 Blood Pressure Pulse Oximetry 97 Oxygen Delivery Room Air 12/10/24 06:00 12/10/24 08:00 12/10/24 08:00 Temperature Pulse Rate 91 96 Respiratory Rate 14 Blood Pressure 129/56 L Pulse Oximetry 97 Oxygen Delivery Room Air Exam 2 Const: General: comfortable and no acute distress Eyes: General: appearance normal, both eyes and all related structures Neck: Neck: supple Resp: Effort & Inspection: normal respiratory effort Cardio: Rate: regular rate GI: Inspection: non-distended GI Palp: Yes Soft to palpation, Yes Tenderness to palpation present (GI) (minimal LLQ) and No Guarding due to palpation present (GI) Auscultation: normal bowel sounds Skin: General skin exam: normal color and no rashes or lesions noted Extrem: General: normal to inspection Psych: Mental Status: mental status grossly normal Results Labs 12/10/24 06:22 12/10/24 06:22 Labs: Abnormal lab results 12/09/24 12/09/24 12/09/24 Range/Units 18:46 20:01 21:33 WBC 18.9 H (4.5-10.0) K/mm3 RBC 3.72 L (4.2-5.4) M/mm3 Hgb 11.7 L (12.0-15.0) g/dL Hct 36.1 L (37.0-47.0) % MCHC (32-36) g/dl MPV 11.4 H (7.4-10.4) fl Immature Gran % (Auto) 0.6 H (0-0.5) % Neut % (Auto) 77.6 H (45.5-73.1) % Lymph % (Auto) 10.5 L (18.3-44.2) % [place] % (Auto) 10.1 H (2.6-8.5) % Lymph # (Auto) (0.9-3.2) K/mm3 [place] # (Auto) 1.9 H (0.1-0.6) K/mm3 Abs Immat Gran (auto) 0.11 H (0.00-0.031) K/mm3 Absolute Neuts (auto) 14.6 H (1.3-6.7) K/mm3 PT (11.1-14.7) Seconds Sodium 134 L (137-145) mmol/L Potassium 3.0 L (3.4-5.0) mmol/L Carbon Dioxide (22-30) mmol/L BUN 19 H (7-17) mg/dL Creatinine (0.7-1.0) mg/dL Glucose 118 H (65-110) mg/dL POC Capillary Glucose (65-105) mg/dl Calcium (8.4-10.2) mg/dL Lipase 302 H (23-300) U/L Ur Specific [place] 1.036 H (1.001-1.035) Urine Protein 1+ H (Negative) mg/dL Urine Ketones Trace H (Negative) mg/dL 12/09/24 12/10/24 12/10/24 Range/Units 23:45 06:14 06:22 WBC (4.5-10.0) K/mm3 RBC 3.27 L (4.2-5.4) M/mm3 Hgb 10.1 L (12.0-15.0) g/dL Hct 32.4 L (37.0-47.0) % MCHC 31.2 L (32-36) g/dl MPV 11.0 H (7.4-10.4) fl Immature Gran % (Auto) (0-0.5) % Neut % (Auto) 76.9 H (45.5-73.1) % Lymph % (Auto) 6.3 L (18.3-44.2) % [place] % (Auto) 14.6 H (2.6-8.5) % Lymph # (Auto) 0.58 L (0.9-3.2) K/mm3 [place] # (Auto) 1.3 H (0.1-0.6) K/mm3 Abs Immat Gran (auto) 0.04 H (0.00-0.031) K/mm3 Absolute Neuts (auto) 7.0 H (1.3-6.7) K/mm3 PT 15.7 H (11.1-14.7) Seconds Sodium 136 L (137-145) mmol/L Potassium (3.4-5.0) mmol/L Carbon Dioxide 21 L (22-30) mmol/L BUN (7-17) mg/dL Creatinine 0.68 L (0.7-1.0) mg/dL Glucose 113 H (65-110) mg/dL POC Capillary Glucose 135 H 116 H (65-105) mg/dl Calcium 7.7 L (8.4-10.2) mg/dL Lipase (23-300) U/L Ur Specific [place] (1.001-1.035) Urine Protein (Negative) mg/dL Urine Ketones (Negative) mg/dL Diabetes panel 12/09/24 12/09/24 12/10/24 Range/Units 20:01 20:10 06:22 Sodium 134 L 136 L (137-145) mmol/L Potassium 3.0 L 3.4 (3.4-5.0) mmol/L Chloride 103 106 (98-107) mmol/L Carbon Dioxide 22 21 L (22-30) mmol/L BUN 19 H 17 (7-17) mg/dL Creatinine 0.71 0.80 0.68 L (0.7-1.0) mg/dL Glucose 118 H 113 H (65-110) mg/dL Calcium 9.0 7.7 L (8.4-10.2) mg/dL AST 36 (14-36) U/L ALT 18 (6-35) U/L Alkaline Phosphatase 87 (38-126) U/L Total Protein 7.4 (6.3-8.2) g/dL Albumin 3.8 (3.5-5.1) g/dL Calcium panel 12/09/24 12/10/24 Range/Units 20:01 06:22 Calcium 9.0 7.7 L (8.4-10.2) mg/dL Albumin 3.8 (3.5-5.1) g/dL Pituitary panel 12/09/24 12/09/24 12/10/24 Range/Units 20:01 20:10 06:22 Sodium 134 L 136 L (137-145) mmol/L Potassium 3.0 L 3.4 (3.4-5.0) mmol/L Chloride 103 106 (98-107) mmol/L Carbon Dioxide 22 21 L (22-30) mmol/L BUN 19 H 17 (7-17) mg/dL Creatinine 0.71 0.80 0.68 L (0.7-1.0) mg/dL Glucose 118 H 113 H (65-110) mg/dL Calcium 9.0 7.7 L (8.4-10.2) mg/dL Adrenal panel 12/09/24 12/09/24 12/10/24 Range/Units 20:01 20:10 06:22 Sodium 134 L 136 L (137-145) mmol/L Potassium 3.0 L 3.4 (3.4-5.0) mmol/L Chloride 103 106 (98-107) mmol/L Carbon Dioxide 22 21 L (22-30) mmol/L BUN 19 H 17 (7-17) mg/dL Creatinine 0.71 0.80 0.68 L (0.7-1.0) mg/dL Glucose 118 H 113 H (65-110) mg/dL Calcium 9.0 7.7 L (8.4-10.2) mg/dL Total Bilirubin 0.9 (0.2-1.3) mg/dL AST 36 (14-36) U/L ALT 18 (6-35) U/L Alkaline Phosphatase 87 (38-126) U/L Total Protein 7.4 (6.3-8.2) g/dL Albumin 3.8 (3.5-5.1) g/dL All other labs normal.
[2024-12-10] MEDS: SODIUM CHLORIDE 0.9% IV 1,000 ML 75 ML IV CONT (16:09)
[2024-12-11] VITALS (7 sets, daily range): BP systolic 123–135; BP diastolic 61–74; PULSE 77–96; RESP 16–18; TEMP 36.4–36.6; O2SAT 93–97
[2024-12-11] MEDS: PIPERACILLIN/TAZOBACTAM SOD 2.25 GM in SODIUM CHLORIDE 0.9% IV 50 ML 100 ML IVPB ×4 (05:17→23:52)
[2024-12-11 06:00] LABS: Iron 21 ug/dL (37-170)
[2024-12-11 06:09] LABS: Percent Iron Saturation 12 % (20-50)
[2024-12-11 06:49] LABS: Vitamin B12 > 1000.0 pg/mL (239-931)
[2024-12-11] MEDS: SODIUM CHLORIDE 0.9% IV 1,000 ML 75 ML IV CONT (06:57)
[2024-12-11] MEDS: PANTOPRAZOLE SODIUM IV 40 MG VIAL IV PUSH (08:08)
[2024-12-11] MEDS: MORPHINE SULFATE (*CRX) 4 MG/ML INJ IV PUSH ×3 (08:08→17:26)
--- NOTE | 2024-12-11 08:44 | P.PNIM_ITS ---
Progress Note: A&P Assessment and Plan (1) Small bowel obstruction: Code(s): K56.609 - Unspecified intestinal obstruction, unspecified as to partial versus complete obstruction Status: Acute Assessment and Plan: Surgery consulted Clear liquid diet DC NG tube small-bowel [id number] contrast in colon (2) Leukocytosis: Code(s): D72.829 - Elevated white blood cell count, unspecified Status: Acute Assessment and Plan: Patient was started on Zosyn for possible abdominal infection with SBO Blood cultures pending Leukocytosis resolved the Zosyn will defer to surgery for antibiotic guidance Patient is on steroids no signs of infection DC antibiotics (3) Anemia: Code(s): D64.9 - Anemia, unspecified Status: Acute Assessment and Plan: Hemoglobin stable Anemia workup pending Transfuse for hemoglobin less than 7 or symptomatic No signs of acute bleeding Noted for blood transfusion at this time (4) Hypocalcemia: Code(s): E83.51 - Hypocalcemia Status: Acute Assessment and Plan: Replete calcium BMP a.m. (5) Rheumatoid arthritis: Code(s): M06.9 - Rheumatoid arthritis, unspecified Status: Acute Assessment and Plan: Restart home medications (6) Anxiety: Code(s): F41.9 - Anxiety disorder, unspecified Status: Acute Assessment and Plan: Restart home medications Time Spent With Patient Time with patient: Greater than 35 minutes Subjective Date/time seen: 12/11/24 08:44 Interval history: 4-year-old female with PMH rheumatoid arthritis, GERD, history of hiatal hernia repair in 2021, history of hysterectomy presented to [facility] on 12/09/2024 complaining of diffuse abdominal pain. CT abdomen pelvis with contrast demonstrates small bowel obstruction as there is fluid-filled distended stomach and small bowel loops with multiple air-fluid levels and a likely transition point in the mid lower abdomen. Patient is having frequent diarrhea this morning which side effect of small- bowel follow-through no need for stool sample NG tube removed in patient started on clear liquid diet, potassium was critically low likely due to gastric suctioning Review of Systems Review of Systems: 12 systems were reviewed and are negativ e except for as per HPI. All systems reviewed & are unremarkable except as noted in HPI and below (Subjective) Exam Narrative: General: well appearing, appears stated age. HEENT: normocephalic, atraumatic. Mucous membranes moist. EOMI, PERRLA, bilateral sclera anicteric, no conjunctival injection. Neck supple without JVD, lymphadenopathy, or bruit. Respiratory: clear to ascultation bilaterally. No rales/rhonic/wheezes. Cardiovascular: Regular rate and rhythm, normal S1-S2 upon ascultation. No murmurs, rubs, or clicks. PMI is nondisplaced, capillary refill less than 3 second. Abdomen: Firm, distended tender to palpation Extremities: No cyanosis, clubbing, or edema present. Pulses are palpable 2/2. Active ROM to all four extremities. Neuro: Alert and orientated x 4. PERRLA. Cranial nerves 2-12 intact without focal deficit. Skin: Warm, dry, and intact, without rash, erythema, or lesion. Psych: pleasant, cooperative, normal speech, normal affect, no hallucinations, no dysarthia Objective Data Vital Signs Vital Signs: Vital Signs - 24 hr 12/10/24 12:00 12/10/24 14:00 12/10/24 16:00 Temperature 98.2 F Pulse Rate 83 64 97 Respiratory Rate 18 Blood Pressure 118/62 Pulse Oximetry 98 Oxygen Delivery 12/10/24 20:00 12/10/24 20:33 12/10/24 22:06 Temperature 97.6 F Pulse Rate 93 87 Respiratory Rate 18 Blood Pressure 141/71 H Pulse Oximetry 94 94 Oxygen Delivery Room Air 12/11/24 00:00 12/11/24 03:38 12/11/24 04:00 Temperature 97.6 F Pulse Rate 87 80 79 Respiratory Rate 18 Blood Pressure 135/74 Pulse Oximetry 94 Oxygen Delivery 12/11/24 08:00 Temperature Pulse Rate Respiratory Rate Blood Pressure Pulse Oximetry Oxygen Delivery Room Air Intake/Output Intake/Output: Intake & Output 12/08/24 12/09/24 12/10/24 12/11/24 23:59 23:59 23:59 23:59 Intake Total 1050 1150 1050 Output Total 3000 52 Balance 1050 -1850 998 Meds/Results Medications: Active Medications Generic Name Dose Route Start Last Admin Trade Name Freq PRN Reason Stop Dose Admin Acetaminophen 650 mg 12/09/24 22:12 Acetaminophen 650 Mg Suppository RECTAL Q6H PRN Mild Pain (1-3) or Fever Dextrose 12.5 gm 12/09/24 22:12 Dextrose 50% 25 Gm/50 Ml Syringe IV PUSH PRN PRN Hypoglycemia Protocol Glucose 15 gm 12/09/24 22:12 Glucose Oral Gel 15 Gm Of Glucse In 37.5 Gm Tube PO PRN PRN Hypoglycemia Protocol Piperacillin Sod/Tazobactam 50 mls @ 100 mls/hr 12/10/24 06:00 12/11/24 05:47 Sod 2.25 gm/ Sodium Chloride IVPB Infused Q6HR TARA Infusion Sodium Chloride 1,000 mls @ 75 mls/hr 12/09/24 22:15 12/11/24 06:57 Normal Saline Iv IV CONT 75 mls/hr .[id number] TARA Administration Dextrose 1,000 mls @ 100 mls/hr 12/09/24 22:12 Dextrose 5% 1,000 Ml IVPB PRN PRN Hypoglycemia Protocol Morphine Sulfate 4 mg 12/09/24 22:12 12/11/24 08:08 Morphine Sulfate (*Crx) 4 Mg/Ml Inj IV PUSH 4 mg Q2H PRN Administration Pain Rated 7-10 Ondansetron HCl 4 mg 12/09/24 22:12 12/10/24 16:10 Ondansetron Inj 4 Mg/2 Ml Vial IV PUSH 4 mg Q4H PRN Administration Nausea Pantoprazole Sodium 40 mg 12/09/24 22:45 12/11/24 08:08 Pantoprazole Sodium Iv 40 Mg Vial IV PUSH 40 mg DAILY TARA Administration Radiology Results: ITS Impressions Abdomen/Pelvis CT 12/09/24 20:32 IMPRESSION: Findings suggestive of a small bowel obstruction. All CT scans at this facility are performed using low dose modulation techniques as appropriate to perform exam including the following: automated exposure control; use of iterative reconstruction technique; adjustment of the mA and/or kV according to patient size (this includes techniques or standardized protocols for targeted exams where dose is matched to indication/reason for exam). Abdomen X-Ray 12/09/24 21:27 IMPRESSION: Enteric tube is in appropriate position within the stomach. Diffuse gaseous distention of the bowel loops suggestive of a bowel obstruction is noted. Labs Labs: Laboratory Results - last 24 hr 12/11/24 12/11/24 12/11/24 00:39 03:48 05:27 POC Capillary Glucose 100 87 Iron 21 L TIBC 175 L % Saturation 12 L Vitamin B12 > 1000.0 H Folate 11.5 Quality VTE Prophylaxis VTE prophylaxis: mechanical ordered Hospitalist MIPS Medication Reconciliation I have utilized all available resources to obtain, update and review the patients current medications (includes all prescriptions, OTC, herbals, cannabis, and nutritional supplements).: Yes
[2024-12-11 08:56] LABS: Hematocrit 29.6 % (37.0-47.0); Hemoglobin 9.0 g/dL (12.0-15.0); Mean Corpuscular HGB Conc 30.4 g/dl (32-36); Mean Corpuscular Hemoglobin 30.5 pg (26-34); Mean Corpuscular Volume 100.3 fl (80-100); Platelet Count Result 200 k/mm3 (150-375); Red Blood Count 2.95 M/mm3 (4.2-5.4); White Blood Count 9.8 K/mm3 (4.5-10.0)
[2024-12-11 09:16] LABS: Anion Gap 11 mmol/L (4-12); Blood Urea Nitrogen 22 mg/dL (7-17); Calcium 8.1 mg/dL (8.4-10.2); Carbon Dioxide 20 mmol/L (22-30); Chloride 107 mmol/L (98-107); Estimated Glomerular Filt Rate > 60; Glucose 70 mg/dL (65-110); Potassium 2.8 mmol/L (3.4-5.0); Sodium 138 mmol/L (137-145)
[2024-12-11] MEDS: POTASSIUM CHLORIDE INJ 40 MEQ in SODIUM CHLORIDE 0.9% IV 500 ML 130 MEQ IVPB (10:02)
--- NOTE | 2024-12-11 12:47 | P.PNGS_ITS ---
Progress Note: A&P Assessment and Plan (1) Small bowel obstruction: Code(s): K56.609 - Unspecified intestinal obstruction, unspecified as to partial versus complete obstruction Status: Acute Assessment and Plan: - SBFT yesterday with normal transit time of contrast to colon - Continues to have multiple BMs - Remove NGT and advance to CLD - No surgical intervention at this time - Continue to monitor bowel function - If patient tolerates CLD, will advance diet tomorrow - Surgery will follow A&P d/w Dr. Tomas Subjective Subjective Date/Time Seen: 12/11/24 12:47 Interval history: NAEON. SBFT with normal transit time to colon. Multiple BMs over interval. Abdomen still distended, reports feeling soreness in lower abdomen, but pain much improved. Review of Systems Review of Systems: 12 point ROS negative except HPI Exam Narrative: General: Awake, alert, no acute distress HEENT: NC/AT, mucous membranes pink and moist Neck: No masses or swelling, JVD Heart: Regular rate, HDS Lungs: Symmetric expansion, no IWOB, on RA Abdomen: soft, mildly TTP in lower abdomen, mildly distended, improving, non peritoneal Extremities: Moves all, normal inspection Psych: normal affect, normal mood, normal judgment Objective Data Vital Signs Vital Signs: Vital Signs - 24 hr 12/10/24 14:00 12/10/24 16:00 12/10/24 20:00 Temperature 98.2 F Pulse Rate 64 97 93 Respiratory Rate 18 Blood Pressure 118/62 Pulse Oximetry 98 Oxygen Delivery 12/10/24 20:33 12/10/24 22:06 12/11/24 00:00 Temperature 97.6 F Pulse Rate 87 87 Respiratory Rate 18 Blood Pressure 141/71 H Pulse Oximetry 94 94 Oxygen Delivery Room Air 12/11/24 03:38 12/11/24 04:00 12/11/24 08:00 Temperature 97.6 F Pulse Rate 80 79 Respiratory Rate 18 Blood Pressure 135/74 Pulse Oximetry 94 Oxygen Delivery Room Air Intake/Output Intake/Output: Intake & Output 12/08/24 12/09/24 12/10/24 12/11/24 23:59 23:59 23:59 23:59 Intake Total 1050 1150 1290 Output Total 3000 52 Balance 1050 -1850 1238 Meds/Results Medications: Active Medications Generic Name Dose Route Start Last Admin Trade Name Freq PRN Reason Stop Dose Admin Acetaminophen 650 mg 12/09/24 22:12 Acetaminophen 650 Mg Suppository RECTAL Q6H PRN Mild Pain (1-3) or Fever Dextrose 12.5 gm 12/09/24 22:12 Dextrose 50% 25 Gm/50 Ml Syringe IV PUSH PRN PRN Hypoglycemia Protocol Glucose 15 gm 12/09/24 22:12 Glucose Oral Gel 15 Gm Of Glucse In 37.5 Gm Tube PO PRN PRN Hypoglycemia Protocol Piperacillin Sod/Tazobactam 50 mls @ 100 mls/hr 12/10/24 06:00 12/11/24 05:47 Sod 2.25 gm/ Sodium Chloride IVPB Infused Q6HR TARA Infusion Sodium Chloride 1,000 mls @ 75 mls/hr 12/09/24 22:15 12/11/24 06:57 Normal Saline Iv IV CONT 75 mls/hr .[id number] TARA Administration Dextrose 1,000 mls @ 100 mls/hr 12/09/24 22:12 Dextrose 5% 1,000 Ml IVPB PRN PRN Hypoglycemia Protocol Potassium Chloride 40 meq/ 520 mls @ 130 mls/hr 12/11/24 09:45 12/11/24 10:02 Sodium Chloride IVPB 12/11/24 13:44 130 mls/hr ONCE ONE Administration Morphine Sulfate 4 mg 12/09/24 22:12 12/11/24 08:08 Morphine Sulfate (*Crx) 4 Mg/Ml Inj IV PUSH 4 mg Q2H PRN Administration Pain Rated 7-10 Ondansetron HCl 4 mg 12/09/24 22:12 12/10/24 16:10 Ondansetron Inj 4 Mg/2 Ml Vial IV PUSH 4 mg Q4H PRN Administration Nausea Pantoprazole Sodium 40 mg 12/09/24 22:45 12/11/24 08:08 Pantoprazole Sodium Iv 40 Mg Vial IV PUSH 40 mg DAILY TARA Administration Radiology Results: ITS Impressions Abdomen/Pelvis CT 12/09/24 20:32 IMPRESSION: Findings suggestive of a small bowel obstruction. All CT scans at this facility are performed using low dose modulation techniques as appropriate to perform exam including the following: automated exposure control; use of iterative reconstruction technique; adjustment of the mA and/or kV according to patient size (this includes techniques or standardized protocols for targeted exams where dose is matched to indication/reason for exam ). Abdomen X-Ray 12/09/24 21:27 IMPRESSION: Enteric tube is in appropriate position within the stomach. Diffuse gaseous distention of the bowel loops suggestive of a bowel obstruction is noted. Small Bowel X-Ray 12/11/24 10:21 IMPRESSION: 1. Dilated small bowel with passage of contrast, likely adynamic ileus. 2. Fundoplication of the stomach with the wrap in abnormal position above the diaphragm. Labs Labs: Laboratory Results - last 24 hr 12/11/24 12/11/24 12/11/24 00:39 03:48 05:27 WBC 9.8 RBC 2.95 L Hgb 9.0 L Hct 29.6 L MCV 100.3 H MCH 30.5 MCHC 30.4 L RDW 13.4 Plt Count 200 MPV 11.4 H Sodium 138 Potassium 2.8 L* Chloride 107 Carbon Dioxide 20 L Anion Gap 11 BUN 22 H Creatinine 0.59 L Estim Creat Clear Calc Not Reportable Estimated GFR > 60 Glucose 70 POC Capillary Glucose 100 87 Calcium 8.1 L Iron 21 L TIBC 175 L % Saturation 12 L Vitamin B12 > 1000.0 H Folate 11.5 12/11/24 12/11/24 11:38 12:20 WBC RBC Hgb Hct MCV MCH MCHC RDW Plt Count MPV Sodium Potassium Chloride Carbon Dioxide Anion Gap BUN Creatinine Estim Creat Clear Calc Estimated GFR Glucose POC Capillary Glucose 60 L 68 Calcium Iron TIBC % Saturation Vitamin B12 Folate
[2024-12-11 14:57] LABS: Potassium 3.1 mmol/L (3.4-5.0)
[2024-12-11] MEDS: POTASSIUM CHLORIDE 20 MEQ PACKET (FOR LIQUID) 40 MEQ PO (15:01)
[2024-12-11] MEDS: HYDROXYCHLOROQUINE SULFATE 200 MG TABLET PO (15:02)
[2024-12-11] MEDS: ALPRAZolam (*CRX) 0.25 MG TABLET PO (20:06)
[2024-12-12 05:21] VITALS: BP 137/63; PULSE 71; RESP 16; TEMP 36.8; O2SAT 94
[2024-12-12] MEDS: PIPERACILLIN/TAZOBACTAM SOD 2.25 GM in SODIUM CHLORIDE 0.9% IV 50 ML 100 ML IVPB ×2 (05:28→11:59)
[2024-12-12 05:30] LABS: Hematocrit 32.3 % (37.0-47.0); Hemoglobin 10.0 g/dL (12.0-15.0); Mean Corpuscular HGB Conc 31.0 g/dl (32-36); Mean Corpuscular Hemoglobin 30.4 pg (26-34); Mean Corpuscular Volume 98.2 fl (80-100); Platelet Count Result 238 k/mm3 (150-375); Red Blood Count 3.29 M/mm3 (4.2-5.4); White Blood Count 11.8 K/mm3 (4.5-10.0)
[2024-12-12 05:53] LABS: Anion Gap 7 mmol/L (4-12); Blood Urea Nitrogen 10 mg/dL (7-17); Calcium 8.2 mg/dL (8.4-10.2); Carbon Dioxide 27 mmol/L (22-30); Chloride 103 mmol/L (98-107); Estimated Glomerular Filt Rate > 60; Glucose 111 mg/dL (65-110); Potassium 3.5 mmol/L (3.4-5.0); Sodium 137 mmol/L (137-145)
[2024-12-12] MEDS: HYDROXYCHLOROQUINE SULFATE 200 MG TABLET PO (08:58)
[2024-12-12] MEDS: PANTOPRAZOLE 40 MG TABLET PO (08:58)
--- NOTE | 2024-12-12 12:10 | P.PNIM_ITS ---
Progress Note: A&P Assessment and Plan (1) Small bowel obstruction: Code(s): K56.609 - Unspecified intestinal obstruction, unspecified as to partial versus complete obstruction Status: Acute Assessment and Plan: 12/12 tolerating soft foods but feels uneasy about discharge today due to severity of symptoms at admission, so will monitor progress overnight and consider discharge 12/13 per her wishes (2) Leukocytosis: Code(s): D72.829 - Elevated white blood cell count, unspecified Status: Acute Assessment and Plan: Initially treated with zosyn but discontinued after admission No sign of acute infection (3) Anemia: Code(s): D64.9 - Anemia, unspecified Status: Acute Assessment and Plan: Low iron, TIBC, %sat, most likely anemia of chronic disease due to RA (4) Hypocalcemia: Code(s): E83.51 - Hypocalcemia Status: Acute Assessment and Plan: 9.0 12/09, 7.7 12/10 after IV hydration 12/10, 12/12 8.2 Suspect malnutrition, Vitamin D deficiency; low PTH less likely (5) Rheumatoid arthritis: Code(s): M06.9 - Rheumatoid arthritis, unspecified Status: Acute Assessment and Plan: Continue home medications (6) Anxiety: Code(s): F41.9 - Anxiety disorder, unspecified Status: Acute Assessment and Plan: Continue home medications Subjective Date/time seen: 12/12/24 12:10 Interval history: Admitted 12/09 with SBO. Treated conservatively. Abdominal pain and bloating now resolved. Bowels moved. Tolerated clear liquids 12/11. Tolerating soft foods 12/12. Denied chest pain or sob or bleeding. Review of Systems Review of Systems: All systems reviewed & are unremarkable except as noted in HPI and below Exam Narrative: HEENT: PERRL, sclerae nonicteric, pharyngeal mucosa pink and intact NECK: No JVD, adenopathy, or thyromegaly CHEST: Clear to auscultation. Normal effort HEART: NL S1/S2, regular, no murmur ABDOMEN: BS+, soft, nontender, no mass, no bruits EXTREMITIES: No cyanosis, edema, or clubbing NEUROLOGIC: CN intact and symmetric to inspection MUSCULOSKELETAL: Tone and strength symmetric PSYCH: Alert. Oriented to person, place, and time Objective Data Vital Signs Vital Signs: Vital Signs - 24 hr 12/11/24 14:00 12/11/24 20:09 12/11/24 20:16 Temperature 97.8 F 97.6 F Pulse Rate 82 77 Respiratory Rate 16 16 Blood Pressure 123/61 125/64 Pulse Oximetry 97 93 Oxygen Delivery Room Air 12/12/24 05:21 12/12/24 08:00 Temperature 98.3 F Pulse Rate 71 Respiratory Rate 16 Blood Pressure 137/63 Pulse Oximetry 94 Oxygen Delivery Room Air Intake/Output Intake/Output: Intake & Output 12/09/24 12/10/24 12/11/24 12/12/24 23:59 23:59 23:59 23:59 Intake Total 1050 1150 2110 690 Output Total 3000 52 Balance 1050 -1850 2058 690 Meds/Results Medications: Active Medications Generic Name Dose Route Start Last Admin Trade Name Freq PRN Reason Stop Dose Admin Acetaminophen 650 mg 12/09/24 22:12 Acetaminophen 650 Mg Suppository RECTAL Q6H PRN Mild Pain (1-3) or Fever Alprazolam 0.25 mg 12/11/24 13:40 12/11/24 20:06 Alprazolam (*Crx) 0.25 Mg Tablet PO 0.25 mg QHS PRN Administration Sleep Dextrose 12.5 gm 12/09/24 22:12 Dextrose 50% 25 Gm/50 Ml Syringe IV PUSH PRN PRN Hypoglycemia Protocol Glucose 15 gm 12/09/24 22:12 Glucose Oral Gel 15 Gm Of Glucse In 37.5 Gm Tube PO PRN PRN Hypoglycemia Protocol Hydroxychloroquine Sulfate 200 mg 12/11/24 13:40 12/12/24 08:58 Hydroxychloroquine Sulfate 200 Mg Tablet PO 200 mg DAILY TARA Administration Piperacillin Sod/Tazobactam 50 mls @ 100 mls/hr 12/10/24 06:00 12/12/24 11:59 Sod 2.25 gm/ Sodium Chloride IVPB 100 mls/hr Q6HR TARA Administration Dextrose 1,000 mls @ 100 mls/hr 12/09/24 22:12 Dextrose 5% 1,000 Ml IVPB PRN PRN Hypoglycemia Protocol Morphine Sulfate 4 mg 12/09/24 22:12 12/11/24 17:26 Morphine Sulfate (*Crx) 4 Mg/Ml Inj IV PUSH 4 mg Q2H PRN Administration Pain Rated 7-10 Ondansetron HCl 4 mg 12/09/24 22:12 12/10/24 16:10 Ondansetron Inj 4 Mg/2 Ml Vial IV PUSH 4 mg Q4H PRN Administration Nausea Pantoprazole Sodium 40 mg 12/12/24 09:00 12/12/24 08:58 Pantoprazole 40 Mg Tablet PO 40 mg DAILY TARA Administration Paroxetine HCl 10 mg 12/11/24 13:40 12/12/24 08:58 Paroxetine 10 Mg Tablet BY MOUTH 10 mg DAILY TARA Administration Prednisone 10 mg 12/11/24 13:48 12/12/24 08:58 Prednisone 10 Mg Tablet PO 10 mg DAILY@0800 TARA Administration Radiology Results: ITS Impressions Abdomen/Pelvis CT 12/09/24 20:32 IMPRESSION: Findings suggestive of a small bowel obstruction. All CT scans at this facility are performed using low dose modulation techniques as appropriate to perform exam including the following: automated exposure control; use of iterative reconstruction technique; adjustment of the mA and/or kV according to patient size (this includes techniques or standardized protocols for targeted exams where dose is matched to indication/reason for exam). Abdomen X-Ray 12/09/24 21:27 IMPRESSION: Enteric tube is in appropriate position within the stomach. Diffuse gaseous distention of the bowel loops suggestive of a bowel obstruction is noted. Small Bowel X-Ray 12/11/24 10:21 IMPRESSION: 1. Dilated small bowel with passage of contrast, likely adynamic ileus. 2. Fundoplication of the stomach with the wrap in abnormal position above the diaphragm. Labs Labs: Laboratory Results - last 24 hr 12/11/24 12/11/24 12/11/24 12:20 14:48 19:51 WBC RBC Hgb Hct MCV MCH MCHC RDW Plt Count MPV Sodium Potassium 3.1 L Chloride Carbon Dioxide Anion Gap BUN Creatinine Estim Creat Clear Calc Estimated GFR Glucose POC Capillary Glucose 68 191 H Calcium 12/12/24 12/12/24 12/12/24 00:09 05:19 05:31 WBC 11.8 H RBC 3.29 L Hgb 10.0 L Hct 32.3 L MCV 98.2 MCH 30.4 MCHC 31.0 L RDW 13.2 Plt Count 238 MPV 10.2 Sodium 137 Potassium 3.5 Chloride 103 Carbon Dioxide 27 Anion Gap 7 BUN 10 D Creatinine 0.57 L Estim Creat Clear Calc Not Reportable Estimated GFR > 60 Glucose 111 H POC Capillary Glucose 138 H 118 H Calcium 8.2 L 12/12/24 11:27 WBC RBC Hgb Hct MCV MCH MCHC RDW Plt Count MPV Sodium Potassium Chloride Carbon Dioxide Anion Gap BUN Creatinine Estim Creat Clear Calc Estimated GFR Glucose POC Capillary Glucose 136 H Calcium
[2024-12-12] MEDS: POTASSIUM CHLORIDE 20 MEQ ER TABLET 40 MEQ PO (12:56)
--- NOTE | 2024-12-12 13:31 | PM.PNGS ---
Progress Note: A&P Assessment and Plan (1) Small bowel obstruction: Code(s): K56.609 - Unspecified intestinal obstruction, unspecified as to partial versus complete obstruction <Mert CorneliusHumaira Piedra, DO - Last Filed: 12/12/24 13:35> Status: Acute <Mert Piedra, DO - Last Filed: 12/12/24 13:35> Assessment and Plan: - SBFT 12/10 with normal transit time of contrast to colon - Continues to have multiple BMs - Advance diet to soft regular diet - No surgical intervention at this time - Continue to monitor bowel function - Surgery will follow - Once patient tolerates soft regular diet, okay to discharge from general surgery standpoint A&P d/w Dr. Tomas <Mert CorneliusHumaira Piedra, DO - Last Filed: 12/12/24 13:35> Subjective Subjective Date/Time Seen: 12/12/24 13:31 <Mert AshliHumaira Piedra, DO - Last Filed: 12/12/24 13:35> Interval history: NAEON. Tolerated CLD without increasing nausea, vomiting, bloating, or abdominal pain. Continues to have bowel function. Will advance diet. <Evaristo Tomas, DO - Last Filed: 12/14/24 12:13> Review of Systems Review of Systems: NAEON. Tolerated CLD without increasing nausea, vomiting, bloating, or abdominal pain. Continues to have bowel function. Will advance diet. <Mert AshliHumaira Tadeo, DO - Last Filed: 12/12/24 13:35> All systems reviewed & are unremarkable except as noted in HPI and below <Mert CorneliusHumaira Piedra, DO - Last Filed: 12/12/24 13:35> Exam Narrative: General: Awake, alert, no acute distress HEENT: NC/AT, mucous membranes pink and moist Neck: No masses or swelling, JVD Heart: Regular rate, HDS Lungs: Symmetric expansion, no IWOB, on RA Abdomen: soft, mildly TTP in lower abdomen, improving, mildly distended, improving, non peritoneal Extremities: Moves all, normal inspection Psych: normal affect, normal mood, normal judgment <Mert CorneliusHumaira Tadeo DO - Last Filed: 12/12/24 13:35> Objective Data Vital Signs Vital Signs: Vital Signs - 24 hr 12/11/24 14:00 12/11/24 20:09 12/11/24 20:16 Temperature 97.8 F 97.6 F Pulse Rate 82 77 Respiratory Rate 16 16 Blood Pressure 123/61 125/64 Pulse Oximetry 97 93 Oxygen Delivery Room Air 12/12/24 05:21 12/12/24 08:00 Temperature 98.3 F Pulse Rate 71 Respiratory Rate 16 Blood Pressure 137/63 Pulse Oximetry 94 Oxygen Delivery Room Air <Mert Piedra, DO - Last Filed: 12/12/24 13:35> Intake/Output Intake/Output: Intake & Output 12/09/24 12/10/24 12/11/24 12/12/24 23:59 23:59 23:59 23:59 Intake Total 1050 1150 2110 690 Output Total 3000 52 Balance 1050 -1850 8 690 <Mert Piedra, DO - Last Filed: 12/12/24 13:35> Meds/Results Medications: Active Medications Generic Name Dose Route Start Last Admin Trade Name Freq PRN Reason Stop Dose Admin Acetaminophen 650 mg 12/09/24 22:12 Acetaminophen 650 Mg Suppository RECTAL Q6H PRN Mild Pain (1-3) or Fever Alprazolam 0.25 mg 12/11/24 13:40 12/11/24 20:06 Alprazolam (*Crx) 0.25 Mg Tablet PO 0.25 mg QHS PRN Administration Sleep Dextrose 12.5 gm 12/09/24 22:12 Dextrose 50% 25 Gm/50 Ml Syringe IV PUSH PRN PRN Hypoglycemia Protocol Glucose 15 gm 12/09/24 22:12 Glucose Oral Gel 15 Gm Of Glucse In 37.5 Gm Tube PO PRN PRN Hypoglycemia Protocol Hydroxychloroquine Sulfate 200 mg 12/11/24 13:40 12/12/24 08:58 Hydroxychloroquine Sulfate 200 Mg Tablet PO 200 mg DAILY TARA Administration Dextrose 1,000 mls @ 100 mls/hr 12/09/24 22:12 Dextrose 5% 1,000 Ml IVPB PRN PRN Hypoglycemia Protocol Morphine Sulfate 4 mg 12/09/24 22:12 12/11/24 17:26 Morphine Sulfate (*Crx) 4 Mg/Ml Inj IV PUSH 4 mg Q2H PRN Administration Pain Rated 7-10 Ondansetron HCl 4 mg 12/09/24 22:12 12/10/24 16:10 Ondansetron Inj 4 Mg/2 Ml Vial IV PUSH 4 mg Q4H PRN Administration Nausea Pantoprazole Sodium 40 mg 12/12/24 09:00 12/12/24 08:58 Pantoprazole 40 Mg Tablet PO 40 mg DAILY TARA Administration Paroxetine HCl 10 mg 12/11/24 13:40 12/12/24 08:58 Paroxetine 10 Mg Tablet BY MOUTH 10 mg DAILY TARA Administration Prednisone 10 mg 12/11/24 13:48 12/12/24 08:58 Prednisone 10 Mg Tablet PO 10 mg DAILY@0800 TARA Administration <Mert Piedra, DO - Last Filed: 12/12/24 13:35> Radiology Results: ITS Impressions Abdomen/Pelvis CT 12/09/24 20:32 IMPRESSION: Findings suggestive of a small bowel obstruction. All CT scans at this facility are performed using low dose modulation techniques as appropriate to perform exam including the following: automated exposure control; use of iterative reconstruction technique; adjustment of the mA and/or kV according to patient size (this includes techniques or standardized protocols for targeted exams where dose is matched to indication/reason for exam). Abdomen X-Ray 12/09/24 21:27 IMPRESSION: Enteric tube is in appropriate position within the stomach. Diffuse gaseous distention of the bowel loops suggestive of a bowel obstruction is noted. Small Bowel X-Ray 12/11/24 10:21 IMPRESSION: 1. Dilated small bowel with passage of contrast, likely adynamic ileus. 2. Fundoplication of the stomach with the wrap in abnormal position above the diaphragm. <Mert Piedra, DO - Last Filed: 12/12/24 13:35> Labs Labs: Laboratory Results - last 24 hr 12/11/24 12/11/24 12/12/24 14:48 19:51 00:09 WBC RBC Hgb Hct MCV MCH MCHC RDW Plt Count MPV Sodium Potassium 3.1 L Chloride Carbon Dioxide Anion Gap BUN Creatinine Estim Creat Clear Calc Estimated GFR Glucose POC Capillary Glucose 191 H 138 H Calcium 12/12/24 12/12/24 12/12/24 05:19 05:31 11:27 WBC 11.8 H RBC 3.29 L Hgb 10.0 L Hct 32.3 L MCV 98.2 MCH 30.4 MCHC 31.0 L RDW 13.2 Plt Count 238 MPV 10.2 Sodium 137 Potassium 3.5 Chloride 103 Carbon Dioxide 27 Anion Gap 7 BUN 10 D Creatinine 0.57 L Estim Creat Clear Calc Not Reportable Estimated GFR > 60 Glucose 111 H POC Capillary Glucose 118 H 136 H Calcium 8.2 L <Mert Piedra, DO - Last Filed: 12/12/24 13:35>
[2024-12-12 14:00] VITALS: BP 125/59; PULSE 80; RESP 18; TEMP 36.8; O2SAT 99
[2024-12-12] MEDS: ALPRAZolam (*CRX) 0.25 MG TABLET PO (22:01)
[2024-12-12 22:12] VITALS: BP 104/50; PULSE 80; RESP 18; TEMP 36.7; O2SAT 96
[2024-12-13 05:52] LABS: Hematocrit 32.2 % (37.0-47.0); Hemoglobin 10.0 g/dL (12.0-15.0); Mean Corpuscular HGB Conc 31.1 g/dl (32-36); Mean Corpuscular Hemoglobin 30.4 pg (26-34); Mean Corpuscular Volume 97.9 fl (80-100); Platelet Count Result 278 k/mm3 (150-375); Red Blood Count 3.29 M/mm3 (4.2-5.4); White Blood Count 10.3 K/mm3 (4.5-10.0)
[2024-12-13 06:00] VITALS: BP 138/62; PULSE 64; RESP 18; TEMP 36.3; O2SAT 96
[2024-12-13 06:32] LABS: Alanine Aminotransferase 15 U/L (6-35); Albumin Level 3.1 g/dL (3.5-5.1); Alkaline Phosphatase 77 U/L (38-126); Anion Gap 5 mmol/L (4-12); Aspartate Amino Transferase 27 U/L (14-36); Bilirubin,Total 0.3 mg/dL (0.2-1.3); Blood Urea Nitrogen 8 mg/dL (7-17); Calcium 8.1 mg/dL (8.4-10.2); Carbon Dioxide 26 mmol/L (22-30); Chloride 107 mmol/L (98-107); Estimated Glomerular Filt Rate > 60; Glucose 92 mg/dL (65-110); Potassium 3.5 mmol/L (3.4-5.0); Sodium 138 mmol/L (137-145); Total Protein 6.2 g/dL (6.3-8.2)
[2024-12-13 06:36] LABS: Thyroid Stimulating Hormone Reflex 4.600 uIU/mL (0.465-4.68)
[2024-12-13 07:20] LABS: Free T4 Free Thyroxine Reflex 1.67 ng/dL (0.78-2.19)
[2024-12-13] MEDS: HYDROXYCHLOROQUINE SULFATE 200 MG TABLET PO (09:18)
[2024-12-13] MEDS: PANTOPRAZOLE 40 MG TABLET PO (09:18)
--- NOTE | 2024-12-13 10:11 | P.PNGS_ITS ---
Progress Note: A&P Assessment and Plan (1) Small bowel obstruction: Code(s): K56.609 - Unspecified intestinal obstruction, unspecified as to partial versus complete obstruction Status: Acute Assessment and Plan: * Resolved. Tolerating a regular diet and bowels are moving. * Okay to d/c from a surgical standpoint. No f/u needed with surgery. Plan I have discussed the patient's case and plan of care with Dr. Sykes. Subjective Subjective Date/Time Seen: 12/13/24 10:11 Interval history: Patient denies any abdominal pain, nausea, or vomiting. Bowels are moving. No acute changes overnight. Only complaint this morning is mild heartburn following breakfast. Exam Const: General: comfortable and no acute distress GI: Inspection: non-distended GI Palp: Yes Soft to palpation, No Tenderness to palpation present (GI) and No Guarding due to palpation present (GI) Auscultation: normal bowel sounds Objective Data Vital Signs Vital Signs: Vital Signs - 24 hr 12/12/24 14:00 12/12/24 22:03 12/12/24 22:12 Temperature 98.3 F 98.1 F Pulse Rate 80 80 Respiratory Rate 18 18 Blood Pressure 125/59 L 104/50 L Pulse Oximetry 99 96 Oxygen Delivery Room Air 12/13/24 06:00 Temperature 97.3 F L Pulse Rate 64 Respiratory Rate 18 Blood Pressure 138/62 Pulse Oximetry 96 Oxygen Delivery Intake/Output Intake/Output: Intake & Output 12/10/24 12/11/24 12/12/24 12/13/24 23:59 23:59 23:59 23:59 Intake Total 1150 2109 2049 780 Output Total 3000 52 Balance -1849 2057 2049 780 Meds/Results Medications: Active Medications Generic Name Dose Route Start Last Admin Trade Name Freq PRN Reason Stop Dose Admin Acetaminophen 650 mg 12/09/24 22:12 Acetaminophen 650 Mg Suppository RECTAL Q6H PRN Mild Pain (1-3) or Fever Alprazolam 0.25 mg 12/11/24 13:40 12/12/24 22:01 Alprazolam (*Crx) 0.25 Mg Tablet PO 0.25 mg QHS PRN Administration Sleep Calcium Carbonate 200 mg 12/13/24 10:07 Calcium Carbonate (Tums) 500 Mg (200 Mg Elemental) PO Q6H PRN Indigestion Dextrose 12.5 gm 12/09/24 22:12 Dextrose 50% 25 Gm/50 Ml Syringe IV PUSH PRN PRN Hypoglycemia Protocol Glucose 15 gm 12/09/24 22:12 Glucose Oral Gel 15 Gm Of Glucse In 37.5 Gm Tube PO PRN PRN Hypoglycemia Protocol Hydroxychloroquine Sulfate 200 mg 12/11/24 13:40 12/13/24 09:18 Hydroxychloroquine Sulfate 200 Mg Tablet PO 200 mg DAILY TARA Administration Dextrose 1,000 mls @ 100 mls/hr 12/09/24 22:12 Dextrose 5% 1,000 Ml IVPB PRN PRN Hypoglycemia Protocol Morphine Sulfate 4 mg 12/09/24 22:12 12/11/24 17:26 Morphine Sulfate (*Crx) 4 Mg/Ml Inj IV PUSH 4 mg Q2H PRN Administration Pain Rated 7-10 Ondansetron HCl 4 mg 12/09/24 22:12 12/10/24 16:10 Ondansetron Inj 4 Mg/2 Ml Vial IV PUSH 4 mg Q4H PRN Administration Nausea Pantoprazole Sodium 40 mg 12/12/24 09:00 12/13/24 09:18 Pantoprazole 40 Mg Tablet PO 40 mg DAILY TARA Administration Paroxetine HCl 10 mg 12/11/24 13:40 12/13/24 09:18 Paroxetine 10 Mg Tablet BY MOUTH 10 mg DAILY TARA Administration Prednisone 10 mg 12/11/24 13:48 12/13/24 09:18 Prednisone 10 Mg Tablet PO 10 mg DAILY@0800 TARA Administration Radiology Results: ITS Impressions Abdomen/Pelvis CT 12/09/24 20:32 IMPRESSION: Findings suggestive of a small bowel obstruction. All CT scans at this facility are performed using low dose modulation paula hniques as appropriate to perform exam including the following: automated exposure control; use of iterative reconstruction technique; adjustment of the mA and/or kV according to patient size (this includes techniques or standardized protocols for targeted exams where dose is matched to indication/reason for exam). Abdomen X-Ray 12/09/24 21:27 IMPRESSION: Enteric tube is in appropriate position within the stomach. Diffuse gaseous distention of the bowel loops suggestive of a bowel obstruction is noted. Small Bowel X-Ray 12/11/24 10:21 IMPRESSION: 1. Dilated small bowel with passage of contrast, likely adynamic ileus. 2. Fundoplication of the stomach with the wrap in abnormal position above the diaphragm. Labs Labs: Laboratory Results - last 24 hr 12/12/24 12/13/24 12/13/24 11:27 00:05 05:29 WBC 10.3 H RBC 3.29 L Hgb 10.0 L Hct 32.2 L MCV 97.9 MCH 30.4 MCHC 31.1 L RDW 13.2 Plt Count 278 MPV 10.2 Sodium 138 Potassium 3.5 Chloride 107 Carbon Dioxide 26 Anion Gap 5 BUN 8 Creatinine 0.55 L Estim Creat Clear Calc Not Reportable Estimated GFR > 60 Glucose 92 POC Capillary Glucose 136 H 106 H Calcium 8.1 L Total Bilirubin 0.3 AST 27 ALT 15 Alkaline Phosphatase 77 Total Protein 6.2 L Albumin 3.1 L TSH (Reflex) 4.600 Free T4 1.67
[2024-12-13 10:28] LABS: Total Triiodothyronine (T3) 0.86 NG/ML (0.82-1.58)
--- NOTE | 2024-12-13 12:00 | P.DS_ITS ---
DS: Admitting Diagnosis Discharge Date 12/13/2024 Admitting Diagnosis Abdominal pain DS: Discharge Diagnosis Discharge Diagnosis (1) Small bowel obstruction: Code(s): K56.609 - Unspecified intestinal obstruction, unspecified as to partial versus complete obstruction Status: Acute DS: Summary Hospital Course Hospital Course: Discharge Diagnosis: * Small bowel obstruction, resolved * Anemia of chronic disease (likely secondary to RA) * Hypocalcemia (mild, likely related to malnutrition/Vitamin D deficiency) * Rheumatoid arthritis * Anxiety disorder * GERD * History of hiatal hernia repair (2021) * History of hysterectomy Hospital Course Ms. Garnett is a 74-year-old female with a history of rheumatoid arthritis, GERD, prior hiatal hernia repair (2021), and hysterectomy, who presented with several days of diffuse abdominal pain, nausea, vomiting, and inability to tolerate oral intake. She had been evaluated in the ER earlier in the week for similar symptoms, with CT showing panniculitis vs. omental infarct. She returned with worsening symptoms, including fever (Tmax 101.8?F), and was found to have leukocytosis (WBC 18.9), hypokalemia, mild hyponatremia, and elevated lipase. Repeat CT abdomen/pelvis with contrast demonstrated a small bowel obstruction with a transition point in the mid-lower abdomen. She was admitted for management of small bowel obstruction. Initial management included NPO status, IV fluids, electrolyte repletion, NG tube decompression (with significant bilious output), and empiric antibiotics (Zosyn) for possible intra-abdominal infection. General surgery was consulted and recommended percy nued conservative management. Small bowel follow-through was performed and showed dilated small bowel with passage of contrast, likely adynamic ileus. The patient gradually improved, with resolution of abdominal pain and distention, return of bowel function, and tolerance of oral intake. Leukocytosis resolved, and antibiotics were discontinued. No surgical intervention was required. Other issues addressed during admission included anemia (likely chronic disease related to RA), mild hypocalcemia (likely related to malnutrition and/or vitamin D deficiency), and management of her chronic conditions (RA, anxiety, GERD). Her home medications were resumed as tolerated. She was monitored for several days, advanced to a regular diet, and remained stable with no recurrence of symptoms. Pertinent Hospital Data * Imaging: * CT abdomen/pelvis: Small bowel obstruction with transition point, recurrent hiatal hernia * Small bowel follow-through: Dilated small bowel, passage of contrast, likely adynamic ileus * Labs: * Initial leukocytosis (WBC 18.9) resolved * Anemia (Hgb liz 10.0) stable, no transfusion required * Mild hypocalcemia (lowest 7.7 mg/dL), improved with oral supplementation * Electrolyte abnormalities corrected * No evidence of acute infection on blood cultures Discharge Condition * Ambulating independently * Tolerating regular diet * Bowel function normal * No abdominal pain, nausea, or vomiting * Vitals stable * No acute surgical issues Discharge Medications Resume home medications: * Hydroxychloroquine 200 mg PO daily * Oxybutynin 5 mg PO as directed * Paroxetine 10 mg PO daily * Pantoprazole 40 mg PO daily * Alprazolam 0.25 mg PO QHS PRN * Ondansetron 4?8 mg PO Q8H PRN nausea * Prednisone 10 mg PO daily * Golimumab 50 mg subcut monthly (hold if any signs of infection) * Calcium carbonate 500 mg PO Q6H PRN indigestion/hypocalcemia New/changed medications: * Continue calcium supplementation as needed * Resume all other home medications Discharge Instructions * Advance diet as tolerated * Monitor for recurrence of abdominal pain, distention, nausea, vomiting, or obstipation * Avoid constipation: maintain adequate hydration, fiber as tolerated * Hold immunosuppressive therapy (golimumab, prednisone) if any signs of infection or fever * Follow up with primary care and rheumatology for ongoing management of RA and anemia * Follow up with surgeon if recurrent symptoms of hiatal hernia or bowel obstruction * Outpatient labs: CBC, CMP, calcium, vitamin D as directed * Return to ED for severe abdominal pain, persistent vomiting, inability to tolerate oral intake, fever, or signs of infection Follow-Up Appointments * Primary care: within 1 week * Rheumatology: as scheduled * Surgery: PRN for recurrent symptoms Time Spent with Patient Time attestation: Total time spent providing and/or coordinating discharge services: DS: Data Data Completed and Pending Labs on day of discharge: Labs from last 24 hours 12/13/24 12/13/24 05:29 00:05 WBC 10.3 H RBC 3.29 L Hgb 10.0 L Hct 32.2 L MCV 97.9 MCH 30.4 MCHC 31.1 L RDW 13.2 Plt Count 278 MPV 10.2 Sodium 138 Potassium 3.5 Chloride 107 Carbon Dioxide 26 Anion Gap 5 BUN 8 Creatinine 0.55 L Estim Creat Clear Calc Not Reportable Estimated GFR > 60 Glucose 92 POC Capillary Glucose 106 H Calcium 8.1 L Total Bilirubin 0.3 AST 27 ALT 15 Alkaline Phosphatase 77 Total Protein 6.2 L Albumin 3.1 L TSH (Reflex) 4.600 Free T4 1.67 Total T3 0.86 Preliminary micro results at discharge 12/09/24 20:31 Blood Culture - Preliminary Blood 12/09/24 20:31 Blood Culture - Preliminary Blood Discharge Plan Discharge Attending physician on discharge: Ellie Ren Consulting providers: Emiliana Sykes Discharging Clinician: Ellie Ren Anticipated Discharge Date/Time: 12/13/24 11:56 Patient Disposition: Home Activity: as tolerated Diet: as tolerated and regular Patient Instructions: Antibiotic Form Patient Language: Vietnamese Stand Alone Forms: General Discharge Information Follow-up/Referrals: Emiliana Sykes MD [Physician, General Surgery] Referral Note: F/u with Gen surgery as instructed Noris Limon APRN [Primary Care Provider, Internal Medicine] Referral Note: F/u with PCP in 3-5 days Discharge Medications: Continued hydroxychloroquine 200 mg tablet 200 mg PO DAILY ondansetron 4 mg tablet,disintegrating 4 mg PO Q8H PRN (Reason: nausea and vomiting) Qty: 14 0RF prednisone 5 mg tablet 5 mg PO Q12H Simponi 50 mg/0.5 mL pen injector 50 mg SUBCUT DAILY@1700 oxybutynin chloride 5 mg tablet See Rx Instructions .ROUTE .COMPLEX Qty: 180 1RF Dose Instruction: TAKE 1 TABLET BY MOUTH TWICE DAILY Rx Instructions: TAKE 1 TABLET BY MOUTH TWICE DAILY paroxetine HCl 10 mg tablet See Rx Instructions .ROUTE .COMPLEX Qty: 90 1RF Dose Instruction: TAKE 1 TABLET BY MOUTH DAILY Rx Instructions: TAKE 1 TABLET BY MOUTH DAILY pantoprazole 40 mg tablet,delayed release (DR/EC) 40 mg PO DAILY Qty: 90 1RF alprazolam 0.25 mg tablet 0.25 mg PO QHS PRN (Reason: sleep) Qty: 90 0RF Date of admission: 12/10/24 08:08 Primary Care Provider: Noris Limon Admitting Provider: Bárbara Echeverria Attending physician on admission: Bárbara Echeverria Condition: Stable
== END 2024-12-13 13:10 | disposition home or self-care (01) | DRG 389 ==
LOC: ANHED 19:29 → ANH3MEDSUR 22:48
PROVIDERS: Internal Medicine; Nurse Practitioner Gerontology; Admitting Provider General Practice; Emergency Provider Physician Assistant; PCP Nurse Practitioner; Visit Provider Internal Medicine
DX: K56.609 Unspecified intestinal obstruction, unspecified as to partial versus complete obstruction (principal); E46 Unspecified protein-calorie malnutrition; E87.1 Hypo-osmolality and hyponatremia; D63.8 Anemia in other chronic diseases classified elsewhere; M06.9 Rheumatoid arthritis, unspecified; E83.51 Hypocalcemia; F41.9 Anxiety disorder, unspecified; K21.9 Gastro-esophageal reflux disease without esophagitis; D72.829 Elevated white blood cell count, unspecified; Z68.24 Body mass index [BMI] 24.0-24.9, adult
CPT/HCPCS: 36415; 74177; 74250; 80048; 80053; 81001; 81003; 82607; 82746; 82948; 83540; 83550; 83605; 83690; 83735; 84132; 84145; 84439; 84443; 84480; 85025; 85027; 85610; 87040; 96361; 96365; 96374; 96375; 96376; 99284; 99285; A9270; G0378; J0613; J2270; J2405; J2470; J2543; J3480; J7030; J7040; J7512; Q9967